=== PATIENT | male | born 1945 | race Caucasian/White ===

== ENCOUNTER → 2016-04-04 | Outpatient (CLI) | payer OTHER ==
[~2016-04-04] MED LIST: ALBU0.5N2 NEB; ALBUAER2 INH; ALBUTEROL SOLUTION NEB; ASPI-435 PO; CALC500T72 PO; CETI10TA84 PO; CHOL100010 PO; CHOL20009 PO; CYAN10005 PO; DOCU-94 PO; FERR1TAB23 PO; FLUN0.02 NAE; GFNSR600 PO; LSN5 PO; METF500T PO; OXGN; ROSU20TA PO; SERT100T PO; SYMIN160 INH; TYLOTC500 PO; VNTHFA/IN INH
--- NOTE | 2016-04-04 09:05 | DIAGNOSTIC IMAGING REPORT ---
RENAL ULTRASOUND HISTORY: C67.9 Carcinoma of [id number] COMPARISON: Abdomen and pelvis CT 01/13/2015. FINDINGS: Right kidney: 12.3 cm. Mild hydronephrosis which almost completely resolves post void. There may be a 1.9 cm exophytic cyst within the upper pole. This is suboptimally visualized due to the poor acoustic window. Left kidney: 11.7 cm. Mild hydronephrosis which almost completely resolves post void. There is a 9 mm upper pole cyst. Bladder: No bladder wall thickening. The left ureteral jet was not identified during the examination. Prevoid bladder volume was 810 cc. The post void was 30 cc. 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 IMPRESSION: 1. Mild bilateral hydronephrosis which is significantly improves post void. 2. 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 3. Post void residual of 30 cc. 4. Bilateral renal cysts.. Electronically signed by: Husam Camacho M.D. 04/04/2016 9:04 AM Dictated Date/Time: 04/04/2016 9:00 AM
--- NOTE | 2016-04-04 09:10 | DIAGNOSTIC IMAGING REPORT ---
KUB HISTORY: C67.9 Carcinoma of [id number] COMPARISON: KUB 03/09/2015. FINDINGS: The bowel gas pattern is unremarkable. There are no dilated loops of small bowel to suggest an obstruction. No renal calculi. No ureteral calculi. No pneumoperitoneum or pneumatosis. Surgical clips within the pelvis. Mild levoscoliosis of the lumbar spine. Mild to moderate degenerative disc disease within the lumbar spine. This remains unchanged. IMPRESSION: No renal or ureteral stones. Postoperative and degenerative changes are again noted. Electronically signed by: Husam Camacho M.D. 04/04/2016 9:08 AM Dictated Date/Time: 04/04/2016 9:06 AM
--- NOTE | 2016-04-09 13:39 | CODING QUERY MEDICAL NECESSITY ---
SUPPORTING DIAGNOSIS NEEDED A supporting diagnosis is required for the test/procedure performed on this patient in order for us to be reimbursed by the patient's insurance. Please provide a supporting diagnosis for the following test/procedure listed below next to the test name along with your signature. *If there is no additional diagnosis for this patient that would support the following test/procedure please document that below next to the test/procedure. Test(s)/Procedure(s) that require a supporting diagnosis: * PSA DIAGNOSIS: * DOS: 04/04/16 Provider Signature: Date: Thank you Mary Munoz [employer] Once completed, please kindly fax back to [phone] For questions please call [phone]
== END | disposition home or self-care (01) ==
LOC: C.ULTR 07:42
PROVIDERS: ATTEND Urology
DX: C67.9 Malignant neoplasm of bladder, unspecified (principal); N28.1 Cyst of kidney, acquired; Z12.5 Encounter for screening for malignant neoplasm of prostate

== ENCOUNTER → 2016-04-17 | Outpatient (CLI) | payer OTHER | END | disposition home or self-care (01) | LOC: C.PATHSPEC 17:16 | PROVIDERS: ATTEND Urology | DX: C67.9 Malignant neoplasm of bladder, unspecified (principal) ==

== ENCOUNTER 2016-05-29 20:55 | Emergency (ER) | payer OTHER ==
[~2016-05-29] VITALS: Ht 177.8 cm; Wt 109.1 kg
[~2016-05-29 20:55] MED LIST changes: -ALBUTEROL SOLUTION NEB; -ASPI-435 PO; -CALC500T72 PO; -CETI10TA84 PO; -CHOL20009 PO; -CYAN10005 PO; -DOCU-94 PO; -FERR1TAB23 PO; -FLUN0.02 NAE; -LSN5 PO; -METF500T PO; -ROSU20TA PO; -SERT100T PO; -SYMIN160 INH; -TYLOTC500 PO; -VNTHFA/IN INH
[2016-05-29 21:02] VITALS: TEMP 37; Ht 177.8 cm; Wt 109.1 kg
[2016-05-29 22:12] LABS: HEMATOCRIT 33.5 % (42-52); MEAN CELL VOLUME 87.5 fL (80-100); MEAN CORPUSCULAR HEMOGLOBIN 27.9 pg (25-34); MEAN CORPUSCULAR HGB CONC 31.9 g/dl (32-36); MEAN PLATELET VOLUME 10.1 fL (7.4-10.4); PLATELET COUNT 289 K/uL (130-400); RED BLOOD COUNT 3.83 M/uL (4.7-6.1); WHITE BLOOD COUNT 12.76 K/uL (4.8-10.8)
--- NOTE | 2016-05-29 22:13 | EMERGENCY ROOM VISIT NOTE ---
History Report prepared by Joseph: Shubham Hatch Under the Supervision of: Dr. Kristian Tam M.D. First contact with patient: 21:28 Chief Complaint: OTHER COMPLAINT Stated Complaint: HEART CATH DONE THIS MORNING, BLEEDING History of Present Illness The patient is a 70 year old male who presents to the Emergency Room with complaints of sudden bleeding from his right groin occurring prior to arrival. The patient states that he had a heart catheterization through the groin today done in [place], and everything went well. He states that he came home in the afternoon, and when he was sitting on the couch he got some pain in his groin, and he had swelling and bleeding around the incision site. He states that he is going to be getting a lung transplant due to multiple diseases in his lungs. He states that he is currently on baby aspirin every day, and he uses oxygen regularly. Source of History: patient Onset: prior to arrival Position: other (right groin) Quality: other (bleeding) Timing: other (sudden) Note: Associated symptoms: swelling Review of Systems See HPI for pertinent positives & negatives. A total of 10 systems reviewed and were otherwise negative. Past Medical & Surgical Medical Problems: (1) Abdominal pain (2) Acute Nasopharyngitis (3) Asthma, Unspecified (4) Bladder cancer (5) Bronchitis Nos (6) Calculus Of Ureter (7) Chronic Obstructive Asthma, Nos (8) Chronic Prostatitis (9) Diab Valarie Wo Compl, Type Ii Or Unspec Type, Not Uncntrld (10) Diverticulosis Colon (W/O Ment Of Hemorrhage) (11) Emphysema lung (12) Esophageal Reflux (13) Hyperlipidemia Nec/Nos (14) Hypertension Nos (15) Hypoxia (16) Neuropathy (17) Pneumonia (18) Pneumothorax (19) RLQ abdominal pain (20) Shortness of breath on exertion (21) UTI (urinary tract infection) Family History Diabetes mellitus Social History Smoking Status: Never Smoker Alcohol Use: none Drug Use: none Marital Status: Housing Status: lives with significant other Occupation Status: unemployed, disabled Current/Historical Medications Scheduled Aspirin (Aspirin 81), 81 MG PO QAM Budesonide/Formoterol Fumarate (Symbicort 160/4.5 Inhaler ), 2 PUFFS INH BID Cetirizine (Zyrtec), 10 MG PO DAILY Cholecalciferol (Vitamin D), 2,000 INTER.UNIT PO DAILY Cyanocobalamin (Vitamin B-12), 1,000 MCG PO DAILY Docusate Sodium (Colace), 1 CAP PO BID Flunisolide (Nasal) (Flunisolide), 1 SPRY STACY BID Lisinopril (Lisinopril), 5 MG PO DAILY Metformin Hcl (Glucophage), 500 MG PO BIDM Oxygen (Oxygen), 2 LITERS NA CONTINOUS Rosuvastatin Calcium (Crestor), 20 MG PO UD Sertraline Hcl (Zoloft), 100 MG PO HS Scheduled PRN Acetaminophen (Tylenol), 1,000 MG PO UD PRN for Fever or Headache Albuterol (Ventolin Hfa), 2 PUFFS INH Q6 PRN for SOB/Wheezing Albuterol 0.5% Soln (Ventolin 0.5% Soln), 1 VIAL NEB UD PRN for Shortness of Breath Allergies Coded Allergies: Penicillins (Verified Allergy, Mild, RASH, 05/29/16) RASH Citalopram (Verified Allergy, Unknown, joint pain, 05/29/16) Gabapentin (Verified Allergy, Unknown, joint pain, 05/29/16) Iodinated Diagnostic Agents (Verified Allergy, Unknown, HIVES, 05/29/16) Statins (Verified Adverse Reaction, Unknown, SEVERE MUSCLE ACHES, 05/29/16) PT CURRENTLY TAKING A LOW DOSE Physical Exam Vital Signs Date Time Temp Pulse Resp B/P Pulse Ox O2 Delivery O2 Flow Rate FiO2 05/30/16 00:17 93 20 124/65 96 Nasal Cannula 2.0 05/29/16 23:20 98 20 132/73 94 Room Air 05/29/16 22:45 94 15 104/66 95 Nasal Cannula 2.0 05/29/16 21:02 37.0 109 24 139/65 91 Nasal Cannula 2.0 Physical Exam GENERAL: Patient is in no acute distress. HEENT: No acute trauma, normocephalic atraumatic, mucous membranes moist, no nasal congestion, no scleral icterus. NECK: No stridor, no adenopathy, no meningismus, trachea is midline. LUNGS: Clear to auscultation bilaterally, no wheeze, no rhonchi, breath sounds equal. HEART: Without murmurs gallops or rubs, regular rate and rhythm. ABDOMEN: Soft, nontender, bowel sounds positive, no hernias, no peritonitis. GROIN: Small contusion to the right groin consistent with recent catheterization. No active bleeding or cellulitis. No obvious hematoma but the area is mildly tender to palpation. EXTREMITIES: Feet are warm bilaterally. No cyanosis or edema, full range of motion of all the joints without pain or difficulty, no signs for acute trauma. NEUROLOGIC: Oriented x 3, no acute motor or sensory deficits, no focal weakness. SKIN: No rash, no jaundice, no diaphoresis. Medical Decision & Procedures ER Provider Diagnostic Interpretation: US results as stated below per my review and radiologist interpretation: US ARTERIAL RIGHT LOWER EXTREMITY: No sonographic abnormality detected in the right groin. No evidence of pseudoaneurysm or fluid collection. Radiologist: Roland Kenney MD Laboratory Results 05/29/16 22:00 05/29/16 22:00 Test 05/29/16 22:00 Red Blood Count 3.83 M/uL (4.7-6.1) Mean Corpuscular Volume 87.5 fL (80-100) Mean Corpuscular Hemoglobin 27.9 pg (25-34) Mean Corpuscular Hemoglobin Concent 31.9 g/dl (32-36) RDW Standard Deviation 51.6 fL (36.4-46.3) RDW Coefficient of Variation 16.1 % (11.5-14.5) Mean Platelet Volume 10.1 fL (7.4-10.4) Prothrombin Time 10.7 SECONDS (9.0-12.0) Prothromb Time International Ratio 1.0 (0.9-1.1) Activated Partial Thromboplast Time 24.7 SECONDS (21.0-31.0) Partial Thromboplastin Ratio 1.0 Anion Gap 9.0 mmol/L (3-11) Est Creatinine Clear Calc Drug Dose 78.4 ml/min Estimated GFR () 79.0 Estimated GFR (Non- 68.1 BUN/Creatinine Ratio 26.5 (10-20) Calcium Level 9.0 mg/dl (8.5-10.1) Chemistry Specimen Hemolysis Laboratory results reviewed by me. ED Course 2127: The patient was evaluated in room A3. A complete history and physical exam was performed. 0013: Reevaluated the patient, and he is doing well. There is no more bleeding. Discussed results and discharge instructions: He verbalized understanding and agreement. The patient is ready for discharge. Medical Decision The patient is a 70 year old male who presents to the ED with complaints of bleeding from his right groin. Differential diagnoses considered include pseudoaneurysm, aneurysm, hematoma, cellulitis, coagulopathy. . There is a mild leukocytosis, this could be consistent with infection or just the stress of the situation. He is mildly anemic but apparently, he runs at this level. I did review old laboratory tests. There was no coagulopathy. No significant electrolyte abnormality or kidney failure. Right groin ultrasound did not show any pseudoaneurysm or active bleeding, there was no large hematoma. On exam, the patient did not have cellulitis, he was not toxic or febrile. He had good distal blood flow in both lower extremities. The patient has done well, there has been no bleeding during his ER stay. I did talk with the on-call boat joiner about the patient's case. The patient is being discharged home with rest, he will avoid a lot of walking and strenuous activity. If he has recurrent bleeding, he should report back to the ER. He was reassured and discharged home. Impression Primary Impression: Bleeding at insertion site Scribe Attestation The scribe's documentation has been prepared under my direction and personally reviewed by me in its entirety. I confirm that the note above accurately reflects all work, treatment, procedures, and medical decision making performed by me. Departure Information Dispostion Home / Self-Care Referrals Greer Monroe M.D. (PCP) Forms HOME CARE DOCUMENTATION FORM, IMPORTANT VISIT INFORMATION Patient Instructions My [facility] [email or web address] Additional Instructions rest no strenuous activity--avoid walking a lot for a few days return for worsening symptoms imaging today was ok as we discussed
[2016-05-29 22:21] LABS: PROTHROMBIN TIME (PATIENT) 10.7 SECONDS (9.0-12.0)
[2016-05-29 22:36] LABS: BUN/CREATININE RATIO 26.5 (10-20); CREATININE 1.1 mg/dl (0.60-1.40); POTASSIUM 3.8 mmol/L (3.5-5.1)
[2016-05-30 00:17] VITALS: BP 124/65; PULSE 93; O2SAT 96
--- NOTE | 2016-05-30 06:39 | DIAGNOSTIC IMAGING REPORT ---
ARTERIAL DOPPLER ULTRASOUND OF THE RIGHT GROIN CLINICAL HISTORY: Right groin pain. History of catheterization. Bleeding COMPARISON STUDY: No previous studies for comparison. FINDINGS: The common femoral artery waveform is normal. The common femoral venous waveform is normal. There is no evidence of pseudoaneurysm. There are no abnormal fluid collections. IMPRESSION: No abnormalities identified. No evidence of pseudoaneurysm. No evidence of significant hematoma. Electronically signed by: Alvin Sargent M.D. 05/30/2016 6:38 AM Dictated Date/Time: 05/30/2016 6:36 AM
[2016-10-24] MEDS ORDERED: SYMIN160 INH (08:46)
[2016-10-24] MEDS ORDERED: METF500T PO (09:38)
[2016-10-24] MEDS ORDERED: LSN5 PO (11:09)
[2016-10-24] MEDS ORDERED: SERT100T PO (11:09)
[2016-10-24] MEDS ORDERED: CETI10TA84 PO (13:09)
[2016-10-24] MEDS ORDERED: ROSU20TA PO (13:09)
[2016-10-24] MEDS ORDERED: CYAN10005 PO (13:09)
[2016-10-24] MEDS ORDERED: FLUN0.02 NAE (13:09)
[2016-10-24] MEDS ORDERED: DOCU-94 PO (13:09)
== END 2016-05-30 00:26 | disposition home or self-care (01) ==
LOC: C.EDB 20:56 → C.EDA 05-30 00:26
DX: T81.89XA Other complications of procedures, not elsewhere classified, initial encounter (principal); Y84.8 Other medical procedures as the cause of abnormal reaction of the patient, or of later complication, without mention of misadventure at the time of the procedure; D64.9 Anemia, unspecified; J45.909 Unspecified asthma, uncomplicated; Z85.51 Personal history of malignant neoplasm of bladder; Z87.440 Personal history of urinary (tract) infections; J44.9 Chronic obstructive pulmonary disease, unspecified; E11.9 Type 2 diabetes mellitus without complications; K21.9 Gastro-esophageal reflux disease without esophagitis; E78.5 Hyperlipidemia, unspecified; I10 Essential (primary) hypertension; Z87.01 Personal history of pneumonia (recurrent); Z83.3 Family history of diabetes mellitus; Z79.82 Long term (current) use of aspirin; Z79.899 Other long term (current) drug therapy

== ENCOUNTER → 2016-09-26 | Outpatient (CLI) | payer OTHER ==
[~2016-09-26] MED LIST changes: +ALBUTEROL SOLUTION NEB; +ASPI-435 PO; +CALC500T72 PO; +CETI10TA84 PO; +CHOL20009 PO; +CYAN10005 PO; +DOCU-94 PO; +FERR1TAB23 PO; +FLUN0.02 NAE; -GFNSR600 PO; +LSN5 PO; +METF500T PO; +PERFLUTREN LIPID MICROSPHERE (DEFINITY) IV ONE; +ROSU20TA PO; +SERT100T PO; +SYMIN160 INH; +TYLOTC500 PO; +VNTHFA/IN INH
--- NOTE | 2016-09-26 15:51 | ECHOCARDIOGRAM REPORT ---
*NOTICE TO RECEIVING [employer] This information is strictly Confidential and protected under [place] law. [place] law prohibits you from making any further disclosure of this information unless further disclosure is expressly permitted by the written consent of the person to whom it pertains or is authorized by law. A general authorization for the release of medical or other information is not sufficient for this purpose. Hospital accepts no responsibility if the information is made available to any other person, INCLUDING THE PATIENT. Interpretation Summary * Name: JENNIFER MOORE Study Date: 09/26/2016 12:40 PM BP: 131/64 mmHg * Patient Location: [facility] HR: 91 * : 1945 (M/d/yyyy) Gender: Male Height: 70 in * Age: 71 yrs Ethnicity: [place] Weight: 248 lb * Ordering Physician: Bob Marcum * Referring Physician: Bob Marcum * Performed By: Lalitha Connor * * Reason For Study: HYPOXIA, LUNG DISEASE * BSA: 2.3 m2 * -- Conclusions -- * Left ventricular systolic function is normal. * No regional wall motion abnormalities noted. * Ejection Fraction = 60-65%. * Grade I diastolic dysfunction, (abnormal relaxation pattern). * No significant valvular pathology. Procedure Details * A complete two-dimensional transthoracic echocardiogram was performed (2D, M-mode, Doppler and color flow Doppler). * A contrast injection of Definity was performed to improve assessment of LV function. * Contrast was injected into an intravenous site in the right arm. * One vial of Definity ultrasound contrast was diluted in normal saline to a total volume of 10 ml. A total of '2' ml of solution was administered during imaging. * Lot # [id number] of Definity utilized for procedure. * Expiration date 10/19. * The attending nurse who injected the contrast agent was JEWELS KRISHNAN RN. Left Ventricle * The left ventricle is normal in size. * There is normal left ventricular wall thickness. * Ejection Fraction = 60-65%. * Left ventricular systolic function is normal. * No regional wall motion abnormalities noted. Right Ventricle * The right ventricle is grossly normal size. * The right ventricular systolic function is normal as assessed by tricuspid annular plane systolic excursion (TAPSE) (normal >1.5 cm). Atria * The left atrium is mildly dilated. * Borderline right atrial enlargement. * There is no evidence of atrial septal defect, but resolution does not allow assessment for a patent foramen ovale. Mitral Valve * The mitral valve is grossly normal. * There is no mitral valve stenosis. * Significant mitral regurgitation is absent. Tricuspid Valve * The tricuspid valve is not well visualized, but is grossly normal. * There is no tricuspid stenosis. * Significant tricuspid regurgitation is absent. Aortic Valve * The aortic valve is not well visualized. * The aortic valve opens well. * No hemodynamically significant valvular aortic stenosis. * No aortic regurgitation is present. Pulmonic Valve * The pulmonary valve is not well seen, but the Doppler examination is normal without significant regurgitation or stenosis. Great Vessels * The aortic root is normal size. * The pulmonary is not well visualized. Pericardium/Pleural * There is no pericardial effusion. Great Vessels * Normal inferior vena cava size and collapsability with sniff indicates a normal right atrial pressure of 3 mmHg Left Ventricular Diastolic Function * Grade I diastolic dysfunction, (abnormal relaxation pattern). * E to e'= <10 abnormal relaxation MMode 2D Measurements and Calculations IVSd 1.1 cm IVSs 1.5 cm LVIDd 4.5 cm LVIDs 3.2 cm LVPWd 1.3 cm LVPWs 1.3 cm IVS/LVPW 0.89 FS 29.1 % EDV(Teich) 90.7 ml ESV(Teich) 39.9 ml EF(Teich) 56.0 % EDV(cubed) 88.9 ml ESV(cubed) 31.7 ml EF(cubed) 64.4 % % IVS thick 30.3 % % LVPW thick -1.52 % LV mass(C)d 199.8 grams LV mass(C)dI 87.4 grams/m\S\2 LV mass(C)s 147.5 grams LV mass(C)sI 64.5 grams/m\S\2 SV(Teich) 50.8 ml SI(Teich) 22.2 ml/m\S\2 SV(cubed) 57.2 ml SI(cubed) 25.0 ml/m\S\2 ACS 1.2 cm asc Aorta Diam 2.7 cm LVOT diam 2.2 cm LVOT area 3.7 cm\S\2 LVAd ap4 43.4 cm\S\2 LVLd ap4 9.4 cm EDV(MOD-sp4) 166.1 ml EDV(sp4-el) 171.0 ml LVAs ap4 24.3 cm\S\2 LVLs ap4 7.1 cm ESV(MOD-sp4) 68.3 ml ESV(sp4-el) 70.1 ml EF(MOD-sp4) 58.9 % EF(sp4-el) 59.0 % LVAd ap2 37.1 cm\S\2 LVLd ap2 9.0 cm EDV(MOD-sp2) 123.3 ml EDV(sp2-el) 130.0 ml LVAs ap2 20.9 cm\S\2 LVLs ap2 7.2 cm ESV(MOD-sp2) 50.5 ml ESV(sp2-el) 51.3 ml EF(MOD-sp2) 59.1 % EF(sp2-el) 60.5 % LVLd %diff -4.27 % EDV(MOD-bp) 144.9 ml LVLs %diff 1.3 % ESV(MOD-bp) 59.2 ml EF(MOD-bp) 59.2 % SV(MOD-sp4) 97.8 ml SI(MOD-sp4) 42.8 ml/m\S\2 SV(MOD-sp2) 72.8 ml SI(MOD-sp2) 31.9 ml/m\S\2 SV(MOD-bp) 85.7 ml SI(MOD-bp) 37.5 ml/m\S\2 SV(sp4-el) 100.9 ml SI(sp4-el) 44.1 ml/m\S\2 SV(sp2-el) 78.7 ml SI(sp2-el) 34.4 ml/m\S\2 Doppler Measurements and Calculations MV E max lexis 86.6 cm/sec MV A max lexis 90.4 cm/sec MV E/A 0.96 MV dec time 0.22 sec Ao V2 max 134.2 cm/sec Ao max PG 7.2 mmHg Ao max PG (full) 2.2 mmHg MARIAJOSE(V,A) 3.1 cm\S\2 MARIAJOSE(V,D) 3.1 cm\S\2 LV V1 max PG 5.0 mmHg LV V1 max 110.7 cm/sec TR max lexis 263.7 cm/sec
== END | disposition home or self-care (01) ==
LOC: C.CPL 12:13
PROVIDERS: ATTEND Internal Medicine Critical Care Medicine
DX: J84.10 Pulmonary fibrosis, unspecified (principal); R09.02 Hypoxemia

== ENCOUNTER → 2016-10-03 | Outpatient (CLI) | payer OTHER ==
[~2016-10-03] MED LIST changes: -PERFLUTREN LIPID MICROSPHERE (DEFINITY) IV ONE
--- NOTE | 2016-10-03 11:32 | DIAGNOSTIC IMAGING REPORT ---
CHEST 2 VIEWS ROUTINE HISTORY: Chronic obstructive pulmonary disease. COMPARISON: Chest 03/01/2016. FINDINGS: No pneumothorax. There are low lung volumes with stable mild elevation of the right hemidiaphragm. The heart remains mildly enlarged. Interstitial thickening, left greater than right remains unchanged. No new focal lung consolidations. No evidence for pulmonary edema. No pleural effusions. IMPRESSION: No change in the low lung volumes and interstitial thickening. This is consistent with a chronic interstitial lung disease. No new focal lung consolidations. Electronically signed by: Husam Camacho M.D. 10/03/2016 11:30 AM Dictated Date/Time: 10/03/2016 11:29 AM
== END | disposition home or self-care (01) ==
LOC: C.RAD 10:44
PROVIDERS: ATTEND Internal Medicine Critical Care Medicine
DX: J44.9 Chronic obstructive pulmonary disease, unspecified (principal)

== ENCOUNTER 2016-10-24 15:25 | Observation (INO) | payer OTHER ==
[~2016-10-24] VITALS: Ht 177.8 cm; Wt 114.7 kg
[~2016-10-24 15:25] MED LIST changes: -ALBUTEROL SOLUTION NEB; -ASPI-435 PO; -CALC500T72 PO; -CHOL20009 PO; -FERR1TAB23 PO; -TYLOTC500 PO; -VNTHFA/IN INH
[2016-10-24] MEDS ORDERED: ALBUT/IPRATROP 3MG/0.5MG NEB 3 ML VIAL INH STA (15:38)
[2016-10-24] MEDS ORDERED: ASPI-435 PO (15:51)
[2016-10-24] MEDS ORDERED: TYLOTC500 PO (15:59)
--- NOTE | 2016-10-24 16:07 | DIAGNOSTIC IMAGING REPORT ---
SINGLE VIEW CHEST CLINICAL HISTORY: Dyspnea. FINDINGS: An AP, portable, upright chest radiograph is compared to study dated 10/03/2016. Correlation is made with chest CT dated 01/20/2016. The examination is significantly degraded by portable technique, motion artifact, and patient rotation. The heart is top normal for projection. Findings of chronic interstitial lung disease are similar to previous. There is no evidence of superimposed airspace consolidation. No large pleural effusion or pneumothorax is seen. The skeletal structures are osteopenic. The bony thorax is grossly intact. IMPRESSION: Findings chronic interstitial lung disease are similar to prior studies. There is no evidence of superimposed airspace consolidation. Electronically signed by: Kristian Joy M.D. 10/24/2016 4:06 PM Dictated Date/Time: 10/24/2016 4:04 PM
--- NOTE | 2016-10-24 16:12 | EMERGENCY ROOM VISIT NOTE ---
History First contact with patient: 15:31 Chief Complaint: SHORTNESS OF BREATH Stated Complaint: SOB History of Present Illness The patient is a 71 year old male who presents to the Emergency Room via private vehicle coming by with complaints of "shortness of breath". The patient states he has a history of interstitial lung disease, and over the past week notes that he now has to sleep with a pillow underneath his head, and feels that he is drowning when he lays flat. He also notes a 20 pound weight gain since October 01. He follows with Dr. Marcum for pulmonology. He denies any diuretics at home. He states he is chronically on 3 L of oxygen since December. He notes he does feel that his shortness of breath has worsened in the past week slightly. He has a chronic smoking history, but stopped in 1994. He denies any chest pain, abdominal pain, fevers or chills. Review of Systems A complete 10-point Review of Systems was discussed with the patient, with pertinent positives and negatives listed in the History of Present Illness. All remaining Review of Systems questions can be considered negative unless otherwise specified. Past Medical/Surgical History Medical Problems: (1) Abdominal pain (2) Acute Nasopharyngitis (3) Asthma, Unspecified (4) Bladder cancer (5) Bronchitis Nos (6) Calculus Of Ureter (7) CHF (congestive heart failure) (8) Chronic Obstructive Asthma, Nos (9) Chronic Prostatitis (10) Diab Valarie Wo Compl, Type Ii Or Unspec Type, Not Uncntrld (11) Diverticulosis Colon (W/O Ment Of Hemorrhage) (12) Emphysema lung (13) Esophageal Reflux (14) Hyperlipidemia Nec/Nos (15) Hypertension Nos (16) Hypoxia (17) Neuropathy (18) Pneumonia (19) Pneumothorax (20) RLQ abdominal pain (21) Shortness of breath on exertion (22) SOB (shortness of breath) (23) UTI (urinary tract infection) (24) Weight gain Family History Diabetes mellitus Social History Smoking Status: Former Smoker Alcohol Use: none Drug Use: none Marital Status: Housing Status: lives with significant other Occupation Status: unemployed, disabled Current/Historical Medications Scheduled Albuterol Hfa (Ventolin Hfa), 2 PUFFS INH Q6H Aspirin (Aspirin 81), 81 MG PO QAM Budesonide/Formoterol Fumarate (Symbicort 160/4.5 Inhaler ), 2 PUFFS INH BID Calcium Ascorbate (Vitamin C), 1 TAB PO DAILY Cetirizine (Zyrtec), 10 MG PO DAILY Cholecalciferol (Vitamin D), 2,000 UNITS PO DAILY Cyanocobalamin (Vitamin B-12), 1,000 MCG PO DAILY Docusate Sodium (Colace), 1 CAP PO BID Ferrous Sulfate (Iron), 325 MG PO DAILY Flunisolide (Nasal) (Flunisolide), 1 SPRY STACY BID Home O2 Therapy (Oxygen), 2 LITERS NA CONTINOUS Lisinopril (Lisinopril), 5 MG PO DAILY Metformin Hcl (Glucophage), 500 MG PO DAILY Rosuvastatin Calcium (Crestor), 20 MG PO UD Sertraline Hcl (Zoloft), 100 MG PO HS [Albuterol Solution ], 1 VIAL NEB PRN UD Scheduled PRN Acetaminophen (Tylenol), 1,000 MG PO UD PRN for Fever or Headache Physical Exam Vital Signs Date Time Temp Pulse Resp B/P (MAP) Pulse Ox O2 Delivery O2 Flow Rate FiO2 10/24/16 19:00 82 10/24/16 18:44 84 22 134/86 97 Nasal Cannula 2.0 10/24/16 16:56 89 20 136/79 95 Nasal Cannula 2.0 10/24/16 15:48 95 10/24/16 15:42 98 Nasal Cannula 2.0 10/24/16 15:26 36.6 97 20 155/78 97 Nasal Cannula 3.0 Physical Exam VITAL SIGNS - Vital signs and nursing notes were reviewed. Patient is afebrile , hypertensive 155 or 78, non-tachycardic and saturating well on 3 L of oxygen at 97%. GENERAL -71-year-old male appearing his stated age who is in no acute distress but does appear to be speaking in abbreviated sentences secondary to shortness of breath. Communicates well with provider and answers questions appropriately. SKIN - Without rashes. HEAD - NC/AT. EYES - Sclera anicteric. Palpebral conjunctiva pink and moist with no injection noted. EARS - No deformities of external structures noted on gross examination bilaterally. NOSE - Midline and without cyanosis. No epistaxis or purulent drainage noted. Septum midline without deviation or septal hematoma noted. MOUTH/OROPHARYNX - Without perioral cyanosis. NECK - Neck with FROM. Supple to palpation. no lymphadenopathy noted. No nuchal rigidity. LUNGS - Chest wall symmetric without accessory muscle use, intercostals retractions, or central cyanosis. Normal vesicular breath sounds CTA B/L. No wheezes, rales, or rhonchi appreciated. CARDIAC - RRR with S1/S2. No murmur, rubs, or gallops appreciated. EXTREMITIES - No clubbing or peripheral cyanosis. Minimal pretibial edema present. +5/5 strength noted in UE/LE bilaterally. NEUROLOGIC - Cranial nerves II through XII grossly intact. Sensory intact to light touch throughout. PSYCH - Pt is very pleasant and interacts well with examiner. Medical Decision & Procedures ER Provider Diagnostic Interpretation: SINGLE VIEW CHEST CLINICAL HISTORY: Dyspnea. FINDINGS: An AP, portable, upright chest radiograph is compared to study dated 10/03/2016. Correlation is made with chest CT dated 01/20/2016. The examination is significantly degraded by portable technique, motion artifact, and patient rotation. The heart is top normal for projection. Findings of chronic interstitial lung disease are similar to previous. There is no evidence of superimposed airspace consolidation. No large pleural effusion or pneumothorax is seen. The skeletal structures are osteopenic. The bony thorax is grossly intact. IMPRESSION: Findings chronic interstitial lung disease are similar to prior studies. There is no evidence of superimposed airspace consolidation. Electronically signed by: Kristian Joy M.D. 10/24/2016 4:06 PM Dictated Date/Time: 10/24/2016 4:[address] SCAN OF THE CHEST WITHOUT IV CONTRAST CLINICAL HISTORY: Dyspnea. COMPARISON STUDY: Chest x-ray dated 10/24/2016. Chest CT scans dated 01/20/2016 and 12/08/2015. TECHNIQUE: CT scan of the thorax was performed from the thoracic inlet to the upper abdomen. Images are reviewed in the axial, sagittal, and coronal planes. IV contrast was not administered for this examination as per the referring clinician. A dose lowering technique was utilized adhering to the principles of ALARA. CT DOSE: 925.66 mGycm FINDINGS: Thyroid: Imaged portions of the thyroid gland are normal in size and attenuation. A subcentimeter low-attenuation nodule is noted in the left lobe. Thoracic aorta: There is mild atherosclerotic calcification of the thoracic aorta, which is normal in caliber and demonstrates standard 3-vessel arch anatomy. Heart: The heart is mildly enlarged and without pericardial effusion. The coronary arteries are densely calcified. Lungs and pleural spaces: There is extensive subpleural reticulation with associated groundglass change. Mild traction bronchiectasis is noted at the lung bases. Findings consistent with chronic interstitial lung disease and this is similar to previous. There is no evidence of superimposed airspace consolidation or pleural effusion. No honeycombing is identified. The trachea and central airways are clear. Mediastinum: Prominent subcentimeter mediastinal lymph nodes are identified and similar to prior studies. Conchita: Not well assessed without IV contrast. Axillae: There is no axillary lymphadenopathy. Upper abdomen: The liver is cirrhotic in morphology and heterogeneous in attenuation. There is a small hiatal hernia. Perigastric varices are identified. A 1.3 cm exophytic cyst arises from the upper pole of the right kidney. Skeletal structures: The skeletal structures are osteopenic. No lytic or blastic bony lesions are seen. IMPRESSION: 1. Findings of chronic interstitial lung disease are similar to previous. There is no evidence of superimposed airspace consolidation or pleural effusion. 2. Cardiomegaly. 3. Cirrhotic liver morphology. 4. Additional findings as above. Electronically signed by: Kristian Joy M.D. 10/24/2016 6:09 PM Dictated Date/Time: 10/24/2016 6:04 PM Laboratory Results 10/24/16 16:00 Red Blood Count 4.02, Mean Corpuscular Volume 95.5, Mean Corpuscular Hemoglobin 30.3, Mean Corpuscular Hemoglobin Concent 31.8, Mean Platelet Volume 10.3, Neutrophils (%) (Auto) 62.3, Lymphocytes (%) (Auto) 21.0, Monocytes (%) (Auto) 10.1, Eosinophils (%) (Auto) 5.6, Basophils (%) (Auto) 0.5, Neutrophils # (Auto ) 4.13, Lymphocytes # (Auto) 1.39, Monocytes # (Auto) 0.67, Eosinophils # (Auto ) 0.37, Basophils # (Auto) 0.03 10/24/16 16:00 Test 10/24/16 16:00 White Blood Count 6.62 K/uL (4.8-10.8) Red Blood Count 4.02 M/uL (4.7-6.1) Hemoglobin 12.2 g/dL (14.0-18.0) Hematocrit 38.4 % (42-52) Mean Corpuscular Volume 95.5 fL (80-100) Mean Corpuscular Hemoglobin 30.3 pg (25-34) Mean Corpuscular Hemoglobin Concent 31.8 g/dl (32-36) Platelet Count 176 K/uL (130-400) Mean Platelet Volume 10.3 fL (7.4-10.4) Neutrophils (%) (Auto) 62.3 % Lymphocytes (%) (Auto) 21.0 % Monocytes (%) (Auto) 10.1 % Eosinophils (%) (Auto) 5.6 % Basophils (%) (Auto) 0.5 % Neutrophils # (Auto) 4.13 K/uL (1.4-6.5) Lymphocytes # (Auto) 1.39 K/uL (1.2-3.4) Monocytes # (Auto) 0.67 K/uL (0.11-0.59) Eosinophils # (Auto) 0.37 K/uL (0-0.5) Basophils # (Auto) 0.03 K/uL (0-0.2) RDW Standard Deviation 55.2 fL (36.4-46.3) RDW Coefficient of Variation 15.7 % (11.5-14.5) Immature Granulocyte % (Auto) 0.5 % Immature Granulocyte # (Auto) 0.03 K/uL (0.00-0.02) Prothrombin Time 10.0 SECONDS (9.0-12.0) Prothromb Time International Ratio 0.9 (0.9-1.1) Activated Partial Thromboplast Time 25.6 SECONDS (21.0-31.0) Partial Thromboplastin Ratio 1.0 Anion Gap 8.0 mmol/L (3-11) Est Creatinine Clear Calc Drug Dose 95.8 ml/min Estimated GFR () 94.8 Estimated GFR (Non- 81.8 BUN/Creatinine Ratio 16.3 (10-20) Calcium Level 8.3 mg/dl (8.5-10.1) Magnesium Level 2.1 mg/dl (1.8-2.4) Total Bilirubin 0.3 mg/dl (0.2-1) Aspartate Amino Transf (AST/SGOT) 30 U/L (15-37) Alanine Aminotransferase (ALT/SGPT) 31 U/L (12-78) Alkaline Phosphatase 61 U/L (45-117) Troponin I < 0.015 ng/ml (0-0.045) Pro-B-Type Natriuretic Peptide 25 pg/ml (0-900) Total Protein 7.1 gm/dl (6.4-8.2) Albumin 3.2 gm/dl (3.4-5.0) Globulin 3.9 gm/dl (2.5-4.0) Albumin/Globulin Ratio 0.8 (0.9-2) Medications Administered Medications (Trade) Dose Ordered Sig/Senthil Route Start Time Stop Time Status Last Admin Dose Admin Albuterol/ Ipratropium (Duoneb) 3 ml NOW STAT INH 10/24/16 15:38 10/24/16 15:40 DC 10/24/16 15:59 3 ML Albuterol (Ventolin Hfa Inhaler) 2 puffs Q6H INH 10/24/16 19:45 11/23/16 19:44 10/24/16 21:33 2 PUFFS Medical Decision Patient was seen and evaluated as above. After obtaining a thorough history and physical examination IV access was initiated, and the above workup was performed. He presents to us today with a history of interstitial lung disease. He is conversationally dyspneic on examination. 15 minute DuoNeb was ordered and he was reevaluated and was feeling slightly better. X-ray does not show any acute process. CT of the chest was performed without the use of intravenous contrast as she does have an allergy to contrast agents. No true change compared to previous appreciated. The concern is that the patient is dyspneic to point where I'm concerned that going home with outpatient management at this time I don't believe is appropriate, believe that inpatient management for further evaluation and management is appropriate. Case was discussed with the attending physician, and also the hospitalist. CBC reveals no leukocytosis, anemia noted with hemoglobin of 12.2. Coags normal. Patient' s CMP does not reveal any evidence of kidney or liver failure. Glucose is high at 174. Please refer to further documentation regarding his stay. In evaluation treatment this patient following differential diagnoses were entertained: Acute exacerbation of chronic lung disease, PE, pneumonia, among others. Medication Reconcilliation Current Medication List: was personally reviewed by me Blood Pressure Screening Patient's blood pressure: Elevated blood pressure Blood pressure disposition: Elevated BP felt to be situational Impression Primary Impression: Chronic interstitial lung disease Departure Information Dispostion Admitted as an inpatient Condition FAIR Referrals Greer Monroe M.D. (PCP) Patient Instructions [facility]
[2016-10-24 16:15] LABS: BASO % 0.5 %; BASO ABS # 0.03 K/uL (0-0.2); COMPLETE YES; EOS % 5.6 %; HEMATOCRIT 38.4 % (42-52); IG% 0.5 %; LYMPH ABS # 1.39 K/uL (1.2-3.4); MEAN CELL VOLUME 95.5 fL (80-100); MEAN CORPUSCULAR HEMOGLOBIN 30.3 pg (25-34); MEAN CORPUSCULAR HGB CONC 31.8 g/dl (32-36); MEAN PLATELET VOLUME 10.3 fL (7.4-10.4); MONO % 10.1 %; NEUT % 62.3 %; PLATELET COUNT 176 K/uL (130-400); RED BLOOD COUNT 4.02 M/uL (4.7-6.1); WHITE BLOOD COUNT 6.62 K/uL (4.8-10.8)
[2016-10-24 16:24] LABS: INR 0.9 (0.9-1.1)
[2016-10-24] MEDS ORDERED: ALBUTEROL SOLUTION NEB (16:28)
[2016-10-24] MEDS ORDERED: CHOL20009 PO (16:32)
[2016-10-24] MEDS ORDERED: VNTHFA/IN INH (16:32)
[2016-10-24] MEDS ORDERED: CALC500T72 PO (16:32)
[2016-10-24] MEDS ORDERED: FERR1TAB23 PO (16:32)
[2016-10-24 16:51] LABS: ALB/GLOB RATIO 0.8 (0.9-2); ALKALINE PHOSPHATASE 61 U/L (45-117); ALT/SGPT 31 U/L (12-78); AST/SGOT 30 U/L (15-37); BLOOD UREA NITROGEN 15 mg/dl (7-18); BUN/CREATININE RATIO 16.3 (10-20); CALCIUM 8.3 mg/dl (8.5-10.1); CARBON DIOXIDE 25 mmol/L (21-32); CHLORIDE 109 mmol/L (98-107); CREATININE 0.94 mg/dl (0.60-1.40); GLUCOSE 174 mg/dl (70-99); MAGNESIUM 2.1 mg/dl (1.8-2.4); POTASSIUM 4.4 mmol/L (3.5-5.1); SODIUM 142 mmol/L (136-145)
--- NOTE | 2016-10-24 17:38 | EMERGENCY ROOM VISIT NOTE ---
ED Visit Note First contact with patient: 15:31 HPI: BLE edema and sob x 3 weeks. PE: dyspneic, AFVSS, NAD NC/AT RRR, no murmurs Diminished Abd soft NT/ND Ext: scant edema, no erythema Neuro: grossly intact Plan: CT chest, if negative may need V/Q scan. Planned admit. I reviewed the patient's past medical history, medications, and visit nursing notes. I discussed the case with the physician print shop assistant, examined the patient, and agree with the findings and plan as documented in the physician assistants note.
--- NOTE | 2016-10-24 18:10 | DIAGNOSTIC IMAGING REPORT ---
CT SCAN OF THE CHEST WITHOUT IV CONTRAST CLINICAL HISTORY: Dyspnea. COMPARISON STUDY: Chest x-ray dated 10/24/2016. Chest CT scans dated 01/20/2016 and 12/08/2015. TECHNIQUE: CT scan of the thorax was performed from the thoracic inlet to the upper abdomen. Images are reviewed in the axial, sagittal, and coronal planes. IV contrast was not administered for this examination as per the referring clinician. A dose lowering technique was utilized adhering to the principles of ALARA. CT DOSE: 925.66 mGycm FINDINGS: Thyroid: Imaged portions of the thyroid gland are normal in size and attenuation. A subcentimeter low-attenuation nodule is noted in the left lobe. Thoracic aorta: There is mild atherosclerotic calcification of the thoracic aorta, which is normal in caliber and demonstrates standard 3-vessel arch anatomy. Heart: The heart is mildly enlarged and without pericardial effusion. The coronary arteries are densely calcified. Lungs and pleural spaces: There is extensive subpleural reticulation with associated groundglass change. Mild traction bronchiectasis is noted at the lung bases. Findings consistent with chronic interstitial lung disease and this is similar to previous. There is no evidence of superimposed airspace consolidation or pleural effusion. No honeycombing is identified. The trachea and central airways are clear. Mediastinum: Prominent subcentimeter mediastinal lymph nodes are identified and similar to prior studies. Conchita: Not well assessed without IV contrast. Axillae: There is no axillary lymphadenopathy. Upper abdomen: The liver is cirrhotic in morphology and heterogeneous in attenuation. There is a small hiatal hernia. Perigastric varices are identified. A 1.3 cm exophytic cyst arises from the upper pole of the right kidney. Skeletal structures: The skeletal structures are osteopenic. No lytic or blastic bony lesions are seen. IMPRESSION: 1. Findings of chronic interstitial lung disease are similar to previous. There is no evidence of superimposed airspace consolidation or pleural effusion. 2. Cardiomegaly. 3. Cirrhotic liver morphology. 4. Additional findings as above. Electronically signed by: Kristian Joy M.D. 10/24/2016 6:09 PM Dictated Date/Time: 10/24/2016 6:04 PM
[2016-10-24] MEDS ORDERED: MAGNESIUM HYDROXIDE SUSP 30 ML UDC PO PRN (19:45)
[2016-10-24] MEDS ORDERED: NITROGLYCERIN 0.4 MG SL PER TAB CHARGE SL PRN (19:45)
[2016-10-24] MEDS ORDERED: POLYETHYLENE (MIRALAX) 17 GM PACK PO PRN (19:45)
[2016-10-24] MEDS ORDERED: ALUMINUM/MAGNESIUM/SIMETH (MAALOX MAX) 30 ML UDC PO PRN (19:45)
[2016-10-24] MEDS ORDERED: ONDANSETRON INJ 2 MG/ML 2 ML VIAL IV PRN (19:45)
[2016-10-24] MEDS ORDERED: ALBUT/IPRATROP 3MG/0.5MG NEB 3 ML VIAL INH PRN (19:45)
[2016-10-24] MEDS ORDERED: ACETAMINOPHEN 325 MG TAB PO PRN (19:45)
--- NOTE | 2016-10-24 20:16 | History and Physical ---
History & Physical Date & Time of Service: Oct 24, 2016 at 19:55 Chief Complaint: SOB Primary Care Physician: Greer Monroe M.D. History of Present Illness Source: patient, family ( at bedside ), clinic records, hospital records Patient is a pleasant 71 y/o male, with PMHx of T2DM with neuropathy, interstitial lung disease, dyslipidemia, HTN, and depression, who presented to the ED because weight gain. According to patient, over the last one month, patient has gained 20+ pounds. Per [employer], patient was seen by Dr. Marcum at the October 01 with weight recorded at 254; today weight is 268. Patient notes over the last few weeks he has had difficulty with lying flat, propping himself up with pillows. He also noted abdominal fullness and lower extremity swelling. notes he is waking up in the middle of the night gasping for air. Patient has a h/o of TRAY but refuses to wear his CPAP. He admits to eating unhealthy over the last few weeks due to feeling low. In July, patient started the process of screening for a hopeful lung transplant, which he is now being told is not going to happen due to his PMHx. On 09/26/16 patient had ECHO reporting: Left ventricular systolic function is normal, No regional wall motion abnormalities noted, Ejection Fraction = 60-65%, Grade I diastolic dysfunction, (abnormal relaxation pattern), and No significant valvular pathology. Patient normally wears 4L O2 at rest and 4-6L with ambulation. Per , she has noticed he is requiring more O2 with ambulation. + chronic productive cough- sputum white/clear. Patient denies any fever, chills, sweats, lightheadedness, dizziness, vision changes, CP, palpitations, wheezing, abdominal pain, nausea, vomiting, diarrhea, urinary symptoms, melena, numbness/ tingling, weakness, muscle/joint pain, anxiety/depression, active bleeding, or new skin discoloration/changes. Past Medical/Surgical History Medical Problems: T2DM with neuropathy interstitial lung disease dyslipidemia HTN depression Family History Diabetes mellitus Social History Smoking Status: Former Smoker Drug Use: none Marital Status: Housing status: lives with significant other Occupational Status: unemployed, disabled Immunizations History of Tetanus Vaccine?: Yes History of Pneumococcal: Yes History of Hepatitis B Vaccine: No Multi-Drug Resistant Organisms History of MDRO: No Allergies Coded Allergies: Penicillins (Verified Allergy, Mild, RASH, 05/29/16) RASH Citalopram (Verified Allergy, Unknown, joint pain, 05/29/16) Gabapentin (Verified Allergy, Unknown, joint pain, 05/29/16) Iodinated Diagnostic Agents (Verified Allergy, Unknown, HIVES, 05/29/16) Statins (Verified Adverse Reaction, Unknown, SEVERE MUSCLE ACHES, 05/29/16) PT CURRENTLY TAKING A LOW DOSE Home Medications Scheduled Albuterol Hfa (Ventolin Hfa), 2 PUFFS INH Q6H Aspirin (Aspirin 81), 81 MG PO QAM Budesonide/Formoterol Fumarate (Symbicort 160/4.5 Inhaler ), 2 PUFFS INH BID Calcium Ascorbate (Vitamin C), 1 TAB PO DAILY Cetirizine (Zyrtec), 10 MG PO DAILY Cholecalciferol (Vitamin D), 2,000 UNITS PO DAILY Cyanocobalamin (Vitamin B-12), 1,000 MCG PO DAILY Docusate Sodium (Colace), 1 CAP PO BID Ferrous Sulfate (Iron), 325 MG PO DAILY Flunisolide (Nasal) (Flunisolide), 1 SPRY STACY BID Home O2 Therapy (Oxygen), 2 LITERS NA CONTINOUS Lisinopril (Lisinopril), 5 MG PO DAILY Metformin Hcl (Glucophage), 500 MG PO DAILY Rosuvastatin Calcium (Crestor), 20 MG PO UD Sertraline Hcl (Zoloft), 100 MG PO HS [Albuterol Solution ], 1 VIAL NEB PRN UD Scheduled PRN Acetaminophen (Tylenol), 1,000 MG PO UD PRN for Fever or Headache Physical Exam Vital Signs Date Time Temp Pulse Resp B/P (MAP) Pulse Ox O2 Delivery O2 Flow Rate FiO2 10/24/16 19:00 82 10/24/16 18:44 84 22 134/86 97 Nasal Cannula 2.0 10/24/16 16:56 89 20 136/79 95 Nasal Cannula 2.0 10/24/16 15:48 95 10/24/16 15:42 98 Nasal Cannula 2.0 10/24/16 15:26 36.6 97 20 155/78 97 Nasal Cannula 3.0 General Appearance: no apparent distress, + obese, + pertinent finding (2L O2 NC) Head: normocephalic, atraumatic Eyes: normal inspection, PERRL ENT: hearing grossly normal Neck: supple Respiratory/Chest: no respiratory distress, no accessory muscle use, + decreased breath sounds, + crackles (bilateral lung bases ), + wheezing ( throughout all lung dunbar ) Cardiovascular: regular rate, rhythm, no JVD Abdomen/GI: normal bowel sounds, non tender, + distended Extremities/Musculoskelatal: no calf tenderness, + swelling (+1 pitting edema to bilateral lower extremities ) Neurologic/Psych: alert, normal mood/affect, oriented x 3 Skin: normal color, warm/dry, no rash Diagnostics Laboratory Results Results Past 24 Hours Test 10/24/16 16:00 Range/Units White Blood Count 6.62 4.8-10.8 K/uL Red Blood Count 4.02 4.7-6.1 M/uL Hemoglobin 12.2 14.0-18.0 g/dL Hematocrit 38.4 42-52 % Mean Corpuscular Volume 95.5 80-100 fL Mean Corpuscular Hemoglobin 30.3 25-34 pg Mean Corpuscular Hemoglobin Concent 31.8 32-36 g/dl Platelet Count 176 130-400 K/uL Mean Platelet Volume 10.3 7.4-10.4 fL Neutrophils (%) (Auto) 62.3 % Lymphocytes (%) (Auto) 21.0 % Monocytes (%) (Auto) 10.1 % Eosinophils (%) (Auto) 5.6 % Basophils (%) (Auto) 0.5 % Neutrophils # (Auto) 4.13 1.4-6.5 K/uL Lymphocytes # (Auto) 1.39 1.2-3.4 K/uL Monocytes # (Auto) 0.67 0.11-0.59 K/uL Eosinophils # (Auto) 0.37 0-0.5 K/uL Basophils # (Auto) 0.03 0-0.2 K/uL RDW Standard Deviation 55.2 36.4-46.3 fL RDW Coefficient of Variation 15.7 11.5-14.5 % Immature Granulocyte % (Auto) 0.5 % Immature Granulocyte # (Auto) 0.03 0.00-0.02 K/uL Prothrombin Time 10.0 9.0-12.0 SECONDS Prothromb Time International Ratio 0.9 0.9-1.1 Activated Partial Thromboplast Time 25.6 21.0-31.0 SECONDS Partial Thromboplastin Ratio 1.0 Sodium Level 142 136-145 mmol/L Potassium Level 4.4 3.5-5.1 mmol/L Chloride Level 109 98-107 mmol/L Carbon Dioxide Level 25 21-32 mmol/L Anion Gap 8.0 3-11 mmol/L Blood Urea Nitrogen 15 7-18 mg/dl Creatinine 0.94 0.60-1.40 mg/dl Est Creatinine Clear Calc Drug Dose 95.8 ml/min Estimated GFR () 94.8 Estimated GFR (Non- 81.8 BUN/Creatinine Ratio 16.3 10-20 Random Glucose 174 70-99 mg/dl Calcium Level 8.3 8.5-10.1 mg/dl Magnesium Level 2.1 1.8-2.4 mg/dl Total Bilirubin 0.3 0.2-1 mg/dl Aspartate Amino Transf (AST/SGOT) 30 15-37 U/L Alanine Aminotransferase (ALT/SGPT) 31 12-78 U/L Alkaline Phosphatase 61 45-117 U/L Troponin I < 0.015 0-0.045 ng/ml Pro-B-Type Natriuretic Peptide 25 0-900 pg/ml Total Protein 7.1 6.4-8.2 gm/dl Albumin 3.2 3.4-5.0 gm/dl Globulin 3.9 2.5-4.0 gm/dl Albumin/Globulin Ratio 0.8 0.9-2 Diagnostic Radiology SINGLE VIEW CHEST CLINICAL HISTORY: Dyspnea. FINDINGS: An AP, portable, upright chest radiograph is compared to study dated 10/03/2016. Correlation is made with chest CT dated 01/20/2016. The examination is significantly degraded by portable technique, motion artifact, and patient rotation. The heart is top normal for projection. Findings of chronic interstitial lung disease are similar to previous. There is no evidence of superimposed airspace consolidation. No large pleural effusion or pneumothorax is seen. The skeletal structures are osteopenic. The bony thorax is grossly intact. IMPRESSION: Findings chronic interstitial lung disease are similar to prior studies. There is no evidence of superimposed airspace consolidation. Electronically signed by: Kristian Joy M.D. 10/24/2016 4:06 PM Dictated Date/Time: 10/24/2016 4:04 PM The status of this report is Signed. Draft = Not yet reviewed or approved by Radiologist. Signed = Reviewed and approved by Radiologist. CT SCAN OF THE CHEST WITHOUT IV CONTRAST CLINICAL HISTORY: Dyspnea. COMPARISON STUDY: Chest x-ray dated 10/24/2016. Chest CT scans dated 01/20/2016 and 12/08/2015. TECHNIQUE: CT scan of the thorax was performed from the thoracic inlet to the upper abdomen. Images are reviewed in the axial, sagittal, and coronal planes. IV contrast was not administered for this examination as per the referring clinician. A dose lowering technique was utilized adhering to the principles of ALARA. CT DOSE: 925.66 mGycm FINDINGS: Thyroid: Imaged portions of the thyroid gland are normal in size and attenuation. A subcentimeter low-attenuation nodule is noted in the left lobe. Thoracic aorta: There is mild atherosclerotic calcification of the thoracic aorta, which is normal in caliber and demonstrates standard 3-vessel arch anatomy. Heart: The heart is mildly enlarged and without pericardial effusion. The coronary arteries are densely calcified. Lungs and pleural spaces: There is extensive subpleural reticulation with associated groundglass change. Mild traction bronchiectasis is noted at the lung bases. Findings consistent with chronic interstitial lung disease and this is similar to previous. There is no evidence of superimposed airspace consolidation or pleural effusion. No honeycombing is identified. The trachea and central airways are clear. Mediastinum: Prominent subcentimeter mediastinal lymph nodes are identified and similar to prior studies. Conchita: Not well assessed without IV contrast. Axillae: There is no axillary lymphadenopathy. Upper abdomen: The liver is cirrhotic in morphology and heterogeneous in attenuation. There is a small hiatal hernia. Perigastric varices are identified. A 1.3 cm exophytic cyst arises from the upper pole of the right kidney. Skeletal structures: The skeletal structures are osteopenic. No lytic or blastic bony lesions are seen. IMPRESSION: 1. Findings of chronic interstitial lung disease are similar to previous. There is no evidence of superimposed airspace consolidation or pleural effusion. 2. Cardiomegaly. 3. Cirrhotic liver morphology. 4. Additional findings as above. Electronically signed by: Kristian Joy M.D. 10/24/2016 6:09 PM Dictated Date/Time: 10/24/2016 6:04 PM The status of this report is Signed. Draft = Not yet reviewed or approved by Radiologist. Signed = Reviewed and approved by Radiologist. EKG JENNIFER MOORE ID:[id number] 24-OCT-2016 15:42:58 [facility] Sinus rhythm with occasional Premature ventricular complexes Otherwise normal ECG When compared with ECG of 05-DEC-2015 15:13, Premature ventricular complexes are now Present Confirmed by ORQUIDEA MCKNIGHT ([id number]) on 10/24/2016 5:34:22 PM 25mm/s 10mm/mV 150Hz 8.0 SP2 12SL 241 CHAVA: 3 Referred by: Confirmed By: ORQUIDEA MCKNIGHT Vent. rate 94 BPM ND interval 172 ms QRS duration 90 ms QT/QTc 350/437 ms P-R-T axes 49 75 27 1945 (71 yr) Male 60in 1lb Room: Loc:15 Clerk Secretary:ALBERTO Larkin ind: Impression Assessment and Plan Patient is a pleasant 71 y/o male, with PMHx of T2DM with neuropathy, interstitial lung disease, HTN, dyslipidemia, and depression, who presented to the ED because weight gain. According to patient, over the last one month, patient has gained 20+ pounds. Acute on chronic diastolic CHF exacerbation: - Admit to tele for cardiac monitoring - O2 protocol, wean as tolerated- wears 4L O2 at rest and 4-6L w/ ambulation - IV Lasix 40 mg x1 and monitor response - Monitor I&Os and daily weights - ECHO in 09/17- will not repeat ECHO at this time because no s/s of ischemic cardiac changes * Left ventricular systolic function is normal. * No regional wall motion abnormalities noted. * Ejection Fraction = 60-65%. * Grade I diastolic dysfunction, (abnormal relaxation pattern). * No significant valvular pathology. - Follow PRP Interstitial lung disease- follows w/ Dr. Marcum: - Continue home inhalers - DuoNebs PRN SOB/wheezing T2DM w/ neuropathy: - Hold Metformin 500 mg daily - BSG ACHS and sliding insulin scale HTN: Lisinopril 5 mg daily Depression: Zoloft 100 mg HS Dyslipidemia: Crestor 20 mg HS Chronic anemia- STABLE: Continue iron supplement DVT prophylaxis: Heparin SQ BID Code Status: LEVEL V, DNR Dispo: From home, lives w/ i personally examined pt and verified all ivan points w T Murarik PAC weight gain, poor eating habits recently. vitals noted nad breathing unlabored (+) edema weight gain/edema - strongly suspect predominantly R sided CHF mechanism. -trial of lasix, explained potential for rise in creatinine, but pt/ in agreement with therapeutic trial -lasix 40mg IV now, then f/u BMP in AM -further diuretic dosing based on clinical response Level of Care Telemetry VTE Prophylaxis VTE Risk Assessment Done? Y/N: Yes Risk Level: Moderate Given or contraindicated: Unfractionated heparin SQ, T.E.D. Stockings, SCD's
[2016-10-24 20:45] VITALS: BP 152/79; PULSE 83; TEMP 36.3; O2SAT 96; Ht 177.8 cm; Wt 114.7 kg
[2016-10-24] MEDS ORDERED: IV FLUIDS COMPLETED PRN (20:45)
[2016-10-24] MEDS: SERTRALINE HCL 100 MG TAB PO SCH (21:00)
[2016-10-24] MEDS: DOCUSATE SODIUM 100 MG CAP PO SCH (21:00)
[2016-10-24] MEDS ORDERED: FUROSEMIDE INJ 40 MG in SYRINGE 0 ML IV ONE (21:00)
[2016-10-24] MEDS: ALBUTEROL HFA 8 GM INHALER INH SCH (21:33)
[2016-10-24] MEDS: BUDESONIDE/FORMOTEROL FUMARATE 160/4.5 60 PUFFS/INHALER INH SCH (21:33)
[2016-10-24] MEDS: INSULIN ASPART 100 UNITS/ML 3 ML PEN SC SCH (21:55)
[2016-10-24] MEDS: HEPARIN SOD 5000 UNIT/0.5 ML CARP SQ SCH (21:59)
[2016-10-24 23:51] VITALS: BP 126/80; PULSE 89; TEMP 36.8; O2SAT 95
[2016-10-25] MEDS: ALBUTEROL HFA 8 GM INHALER INH SCH ×4 (01:28→19:43)
[2016-10-25 04:00] VITALS: BP 130/78; PULSE 86; TEMP 36.9; O2SAT 97
[2016-10-25 06:43] LABS: HEMATOCRIT 36.1 % (42-52); MEAN CELL VOLUME 94.8 fL (80-100); MEAN CORPUSCULAR HEMOGLOBIN 30.4 pg (25-34); MEAN CORPUSCULAR HGB CONC 32.1 g/dl (32-36); MEAN PLATELET VOLUME 10.4 fL (7.4-10.4); PLATELET COUNT 155 K/uL (130-400); RED BLOOD COUNT 3.81 M/uL (4.7-6.1); WHITE BLOOD COUNT 7.54 K/uL (4.8-10.8)
[2016-10-25 06:52] VITALS: BP 132/78; PULSE 86; TEMP 36.7; O2SAT 96
[2016-10-25 07:17] LABS: BUN/CREATININE RATIO 17.7 (10-20); CALCIUM 8.8 mg/dl (8.5-10.1); CREATININE 0.87 mg/dl (0.60-1.40); POTASSIUM 4.1 mmol/L (3.5-5.1)
[2016-10-25] MEDS: BUDESONIDE/FORMOTEROL FUMARATE 160/4.5 60 PUFFS/INHALER INH SCH ×2 (08:17→21:00)
[2016-10-25] MEDS: DOCUSATE SODIUM 100 MG CAP PO SCH ×2 (08:17→21:00)
[2016-10-25] MEDS: ASPIRIN 81 MG ECTAB PO SCH (08:19)
[2016-10-25] MEDS: CYANOCOBALAMIN 500 MCG TAB (VIT B-12) PO SCH (08:19)
[2016-10-25] MEDS: LISINOPRIL 5 MG TAB PO SCH (08:19)
[2016-10-25] MEDS: CHOLECALCIFEROL 1000 INTER.UNIT TAB PO SCH (08:19)
[2016-10-25] MEDS: FERROUS SULFATE 325 MG TAB PO SCH (08:20)
[2016-10-25] MEDS: ASCORBIC ACID 500 MG TAB PO SCH (08:20)
[2016-10-25] MEDS: CETIRIZINE HCL 10 MG TAB PO SCH (08:20)
[2016-10-25] MEDS: HEPARIN SOD 5000 UNIT/0.5 ML CARP SQ SCH ×2 (08:27→21:06)
[2016-10-25] MEDS: INSULIN ASPART 100 UNITS/ML 3 ML PEN SC SCH ×4 (08:27→21:00)
[2016-10-25] MEDS ORDERED: ROSUVASTATIN CALCIUM 20 MG TAB PO SCH (09:00)
[2016-10-25 11:29] VITALS: BP 147/80; PULSE 87; TEMP 36.7; O2SAT 95
[2016-10-25] MEDS ORDERED: PHARMACY GLYCEMIC MGMT CONSULT PRN (12:30)
[2016-10-25] MEDS ORDERED: NURSING VERBAL MED ORDER ONE (12:30)
[2016-10-25] MEDS ORDERED: FUROSEMIDE INJ 20 MG in SYRINGE 0 ML IV ONE (12:45)
--- NOTE | 2016-10-25 12:54 | Pharmacy Progress Note ---
Glycemic Control Intl Consult Date of Service Oct 25, 2016. Scope Glycemic Pharmacist consulted by Dr Andujar on 10/25/16 for glycemic control and to write orders per [facility] inpatient glycemic control protocol Objective Weight (Kilograms): 115.800 Accuchecks BSG (last 24hrs): Test 10/24/16 16:00 10/24/16 21:41 10/25/16 06:08 10/25/16 06:25 Random Glucose 174 mg/dl (70-99) 126 mg/dl (70-99) Bedside Glucose 116 mg/dl (70-99) 123 mg/dl (70-99) Test 10/25/16 11:49 Bedside Glucose 87 mg/dl (70-99) Laboratory Data (last 24hrs) Test 10/24/16 16:00 10/25/16 06:08 Anion Gap 8.0 mmol/L 2.0 mmol/L BUN/Creatinine Ratio 16.3 17.7 Blood Urea Nitrogen 15 mg/dl 15 mg/dl Creatinine 0.94 mg/dl 0.87 mg/dl Potassium Level 4.4 mmol/L 4.1 mmol/L Sodium Level 142 mmol/L 140 mmol/L White Blood Count 6.62 K/uL 7.54 K/uL Red Blood Count 4.02 M/uL Hemoglobin 12.2 g/dL Hematocrit 38.4 % Mean Corpuscular Volume 95.5 fL Mean Corpuscular Hemoglobin 30.3 pg Mean Corpuscular Hemoglobin Concent 31.8 g/dl Platelet Count 176 K/uL Mean Platelet Volume 10.3 fL Neutrophils (%) (Auto) 62.3 % Lymphocytes (%) (Auto) 21.0 % Monocytes (%) (Auto) 10.1 % Eosinophils (%) (Auto) 5.6 % Basophils (%) (Auto) 0.5 % Neutrophils # (Auto) 4.13 K/uL Lymphocytes # (Auto) 1.39 K/uL Monocytes # (Auto) 0.67 K/uL Eosinophils # (Auto) 0.37 K/uL Basophils # (Auto) 0.03 K/uL Recent Pertinent Medications Outpatient Anti-diabetic Regimen: * Metformin 500mg po daily * A1c = 5.5 % 12/05/15 - updated A1c ordered fro 10/26/16 The patient is currently receiving: * Correctional Insulin: Novolog Correction per scale ACHS Goal Range: Low 140 mg/dL - High 180 mg/dL Correction Factor: 30 mg/dL/unit * Prandial insulin: Per carb ratio of 1 unit per 9 grams CHO consumed Risk Factors for Insulin Resistance: * Diet: Type 2 DM Assessment & Plan ASSESSMENT: * 71 year old type 2 diabetic, unknown control, updated A1c ordered, admitted for CHF exacerbation * Pt experiencing hypoglycemic symptoms with BSG of 87mg/dL today prior to lunch , I will loosen his CF and CR to keep his BSG closer to goal range. * ADA & AACE recommend a goal blood sugar range 140-180 mg/dl for the majority of critically ill & non-critically ill patients. However, more stringent targets may be selected in individual cases. Continue this range as patient states he is symptomatic when BSG < 100mg/dL PLAN FOR INPATIENT GLYCEMIC CONTROL: * Continue holding outpatient oral diabetes medications * Correctional Insulin with NOVOLOG per scale ACHS or Q6hrs while NPO * Goal Range: Low 140 mg/dL - High 180 mg/dL * Correction Factor: loosen to 40 mg/dL/unit * Nutritional / Prandial insulin per carb ratio: loosen to 1 unit per 15 grams CHO consumed * Please note that the plan above was derived based on current level of insulin resistance and hospital stress. These recommendations are appropriate for inpatient admission only. Plan of care upon discharge will need to be reassessed to avoid potential outpatient hypo/hyperglycemia. Thank you.
[2016-10-25 15:20] VITALS: BP 126/76; PULSE 87; TEMP 36.6; O2SAT 96
[2016-10-25 19:25] VITALS: BP 134/75; PULSE 89; TEMP 36.5; O2SAT 96
--- NOTE | 2016-10-25 20:27 | Hospitalist Progress Note ---
Hospitalist Progress Note Date of Service Oct 25, 2016. Subjective Pt evaluation today including: conversation w/ patient shortness of breath improved Objective Vital Signs Date Time Temp Pulse Resp B/P (MAP) Pulse Ox O2 Delivery O2 Flow Rate FiO2 10/25/16 20:00 Nasal Cannula 3.0 10/25/16 19:25 36.5 89 19 134/75 (94) 96 Nasal Cannula 3.0 10/25/16 16:00 Nasal Cannula 3.0 10/25/16 15:20 36.6 87 19 126/76 (93) 96 Nasal Cannula 3.0 10/25/16 12:00 Nasal Cannula 3.0 10/25/16 11:29 36.7 87 22 147/80 (102) 95 Nasal Cannula 3.0 10/25/16 08:00 Nasal Cannula 3.0 10/25/16 06:52 36.7 86 20 132/78 (96) 96 Nasal Cannula 2.0 10/25/16 04:00 36.9 86 21 130/78 (95) 97 Nasal Cannula 3.0 10/25/16 04:00 Nasal Cannula 3.0 10/25/16 00:00 Nasal Cannula 3.0 10/24/16 23:51 36.8 89 20 126/80 (95) 95 3.0 10/24/16 20:45 36.3 83 22 152/79 96 Nasal Cannula 4.0 Physical Exam General Appearance: no apparent distress Eyes: normal inspection ENT: hearing grossly normal Neck: supple, trachea midline Respiratory/Chest: lungs clear Cardiovascular: regular rate, rhythm Abdomen: normal bowel sounds Extremities: normal range of motion Laboratory Results Last 24 Hours Test 10/24/16 21:41 10/25/16 06:08 10/25/16 06:25 10/25/16 11:49 Bedside Glucose 116 mg/dl 123 mg/dl 87 mg/dl White Blood Count 7.54 K/uL Red Blood Count 3.81 M/uL Hemoglobin 11.6 g/dL Hematocrit 36.1 % Mean Corpuscular Volume 94.8 fL Mean Corpuscular Hemoglobin 30.4 pg Mean Corpuscular Hemoglobin Concent 32.1 g/dl RDW Standard Deviation 54.2 fL RDW Coefficient of Variation 15.7 % Platelet Count 155 K/uL Mean Platelet Volume 10.4 fL Sodium Level 140 mmol/L Potassium Level 4.1 mmol/L Chloride Level 107 mmol/L Carbon Dioxide Level 31 mmol/L Anion Gap 2.0 mmol/L Blood Urea Nitrogen 15 mg/dl Creatinine 0.87 mg/dl Est Creatinine Clear Calc Drug Dose 100.7 ml/min Estimated GFR () 101.3 Estimated GFR (Non- 87.4 BUN/Creatinine Ratio 17.7 Random Glucose 126 mg/dl Calcium Level 8.8 mg/dl Test 10/25/16 16:01 10/25/16 20:04 Bedside Glucose 101 mg/dl 135 mg/dl Assessment and Plan Patient is a pleasant 71 y/o male, with PMHx of T2DM with neuropathy, interstitial lung disease, HTN, dyslipidemia, and depression, who presented to the ED because weight gain. According to patient, over the last one month, patient has gained 20+ pounds. 1. Acute on chronic diastolic CHF exacerbation: Continue iv lasix good response currently - Monitor I&Os and daily weights - ECHO in 09/17- will not repeat ECHO at this time because no s/s of ischemic cardiac changes * Left ventricular systolic function is normal. * No regional wall motion abnormalities noted. * Ejection Fraction = 60-65%. * Grade I diastolic dysfunction, (abnormal relaxation pattern). * No significant valvular pathology. - Follow PRP 2. Interstitial lung disease- follows w/ Dr. Marcum: - Continue home inhalers - DuoNebs PRN SOB/wheezing 3. T2DM w/ neuropathy: - Hold Metformin 500 mg daily - BSG ACHS and sliding insulin scale Will ask pharmacy to manage 4. HTN: Lisinopril 5 mg daily 5. Depression: Zoloft 100 mg HS 6. Dyslipidemia: Crestor 20 mg HS 7. Chronic anemia- STABLE: Continue iron supplement 8. DVT prophylaxis: Heparin SQ BID 9. Code Status: LEVEL V, DNR Dispo: From home, lives w/ Discharge planning: home
[2016-10-25] MEDS: SERTRALINE HCL 100 MG TAB PO SCH (21:00)
[2016-10-25 23:33] VITALS: BP 111/69; PULSE 90; TEMP 36.7; O2SAT 98
[2016-10-26] MEDS: ALBUTEROL HFA 8 GM INHALER INH SCH ×4 (01:29→20:43)
[2016-10-26 03:34] VITALS: BP 128/77; PULSE 83; TEMP 36.4; O2SAT 96
[2016-10-26 06:07] LABS: HEMATOCRIT 38.7 % (42-52); MEAN CELL VOLUME 94.9 fL (80-100); MEAN CORPUSCULAR HEMOGLOBIN 29.7 pg (25-34); MEAN CORPUSCULAR HGB CONC 31.3 g/dl (32-36); MEAN PLATELET VOLUME 10.5 fL (7.4-10.4); PLATELET COUNT 187 K/uL (130-400); RED BLOOD COUNT 4.08 M/uL (4.7-6.1); WHITE BLOOD COUNT 7.56 K/uL (4.8-10.8)
[2016-10-26 06:38] LABS: CALCIUM 8.7 mg/dl (8.5-10.1); CREATININE 0.87 mg/dl (0.60-1.40); POTASSIUM 4.2 mmol/L (3.5-5.1)
[2016-10-26 06:58] LABS: ESTIMATED AVERAGE GLUCOSE 120 mg/dl; HA1C FLAG Normal (Normal)
[2016-10-26 07:22] VITALS: BP 137/77; PULSE 83; TEMP 36.4; O2SAT 94
[2016-10-26] MEDS: INSULIN ASPART 100 UNITS/ML 3 ML PEN SC SCH ×4 (08:09→20:44)
[2016-10-26] MEDS: HEPARIN SOD 5000 UNIT/0.5 ML CARP SQ SCH ×2 (08:10→20:44)
[2016-10-26] MEDS: DOCUSATE SODIUM 100 MG CAP PO SCH ×3 (08:11→20:49)
[2016-10-26] MEDS: BUDESONIDE/FORMOTEROL FUMARATE 160/4.5 60 PUFFS/INHALER INH SCH ×2 (08:11→20:43)
[2016-10-26] MEDS: ASPIRIN 81 MG ECTAB PO SCH (08:12)
[2016-10-26] MEDS: CYANOCOBALAMIN 500 MCG TAB (VIT B-12) PO SCH (08:12)
[2016-10-26] MEDS: FERROUS SULFATE 325 MG TAB PO SCH (08:12)
[2016-10-26] MEDS: ASCORBIC ACID 500 MG TAB PO SCH (08:12)
[2016-10-26] MEDS: CETIRIZINE HCL 10 MG TAB PO SCH (08:13)
[2016-10-26] MEDS: LISINOPRIL 5 MG TAB PO SCH (08:13)
[2016-10-26] MEDS: CHOLECALCIFEROL 1000 INTER.UNIT TAB PO SCH (08:13)
[2016-10-26 11:49] VITALS: BP 137/81; PULSE 85; TEMP 36.4; O2SAT 95
--- NOTE | 2016-10-26 12:05 | Pharmacy Progress Note ---
Pharmacy Glycemic Sign Off Nt Date of Service Oct 26, 2016. Assessment & Plan ASSESSMENT: * Pharmacy was consulted by Dr Andujar on 10/25/16 for glycemic control and to write orders per [facility] inpatient glycemic control protocol. * Major changes made by pharmacy to antidiabetic regimen include: * Novolog CF and CR loosened on 10/25 due to report of symptomatic hypoglycemia (BSG 87 g/dL) * No further reported hypoglycemia since above change was made * Patient has been receiving/requiring 14 units of insulin per day for adequate glycemic control * BSGs ranging 87 - 135 mg/dl * Do not anticipate further changes in patient status that would quickly deteriorate glycemic control (i.e. patient to be NPO for upcoming procedure, steroids tapering, starting tube feedings, etc). * Please see recommendations for outpatient antidiabetic regimen below. PLAN FOR INPATIENT GLYCEMIC CONTROL: No changes needed to current regimen. * Continue NovoLog per scale ACHS/Q6hrs while NPO * Goal range = 140 - 180 mg/dl * CF = 40 mg/dl/unit * CR = 1 unit for ever 15 g CHO consumed * A1c added to discharge instructions to be communicated to PCP. * Pharmacy is signing off of glycemic consult and will no longer be making adjustments to inpatient regimen. Please feel free to re-consult if needed. Thank you. DISCHARGE RECOMMENDATIONS: * A1c 5.8 % on 10/26/16 * Recommend continuing outpatient regimen of metformin on discharge
--- NOTE | 2016-10-26 13:36 | Palliative Care Progress Note ---
Palliative Care Progress Note Date of Service Oct 26, 2016. Subjective Consult received. Attempted to see patient several times. Both times, patient busy with visitors or with nurses. Will attempt to go back.
[2016-10-26 15:06] VITALS: BP 131/70; PULSE 85; TEMP 36.6; O2SAT 93
[2016-10-26 18:55] VITALS: BP 128/78; PULSE 82; TEMP 36.6; O2SAT 94
[2016-10-26] MEDS: SERTRALINE HCL 100 MG TAB PO SCH ×2 (20:42→20:49)
[2016-10-26 23:14] VITALS: BP 113/66; PULSE 88; TEMP 36.6; O2SAT 96
[2016-10-27 03:22] VITALS: BP 122/72; PULSE 83; TEMP 36.7; O2SAT 97
[2016-10-27] MEDS: ALBUTEROL HFA 8 GM INHALER INH SCH ×2 (03:24→09:45)
--- NOTE | 2016-10-27 03:53 | Hospitalist Progress Note ---
Hospitalist Progress Note Date of Service Oct 26, 2016. Subjective Pt evaluation today including: conversation w/ patient patient feels better Objective Vital Signs Date Time Temp Pulse Resp B/P (MAP) Pulse Ox O2 Delivery O2 Flow Rate FiO2 10/26/16 08:00 Nasal Cannula 3.0 10/26/16 07:22 36.4 83 20 137/77 (97) 94 Nasal Cannula 3.0 10/26/16 04:00 Nasal Cannula 3.0 10/26/16 03:34 36.4 83 19 128/77 (94) 96 Nasal Cannula 3.0 10/26/16 00:00 Nasal Cannula 3.0 10/25/16 23:33 36.7 90 18 111/69 (83) 98 Nasal Cannula 3.0 10/25/16 20:00 Nasal Cannula 3.0 10/25/16 19:25 36.5 89 19 134/75 (94) 96 Nasal Cannula 3.0 10/25/16 16:00 Nasal Cannula 3.0 10/25/16 15:20 36.6 87 19 126/76 (93) 96 Nasal Cannula 3.0 10/25/16 12:00 Nasal Cannula 3.0 10/25/16 11:29 36.7 87 22 147/80 (102) 95 Nasal Cannula 3.0 Physical Exam General Appearance: no apparent distress ENT: hearing grossly normal Neck: trachea midline Respiratory/Chest: chest non-tender, no respiratory distress, + crackles Cardiovascular: regular rate, rhythm Abdomen: normal bowel sounds Extremities: non-tender Laboratory Results Last 24 Hours Test 10/25/16 11:49 10/25/16 16:01 10/25/16 20:04 10/26/16 05:24 Bedside Glucose 87 mg/dl 101 mg/dl 135 mg/dl White Blood Count 7.56 K/uL Red Blood Count 4.08 M/uL Hemoglobin 12.1 g/dL Hematocrit 38.7 % Mean Corpuscular Volume 94.9 fL Mean Corpuscular Hemoglobin 29.7 pg Mean Corpuscular Hemoglobin Concent 31.3 g/dl RDW Standard Deviation 53.9 fL RDW Coefficient of Variation 15.6 % Platelet Count 187 K/uL Mean Platelet Volume 10.5 fL Sodium Level 137 mmol/L Potassium Level 4.2 mmol/L Chloride Level 104 mmol/L Carbon Dioxide Level 29 mmol/L Anion Gap 4.0 mmol/L Blood Urea Nitrogen 17 mg/dl Creatinine 0.87 mg/dl Est Creatinine Clear Calc Drug Dose 100.1 ml/min Estimated GFR () 101.3 Estimated GFR (Non- 87.4 BUN/Creatinine Ratio 20.0 Random Glucose 131 mg/dl Estimated Average Glucose 120 mg/dl Hemoglobin A1c 5.8 % Calcium Level 8.7 mg/dl Test 10/26/16 06:16 Bedside Glucose 130 mg/dl Assessment and Plan Patient is a pleasant 71 y/o male, with PMHx of T2DM with neuropathy, interstitial lung disease, HTN, dyslipidemia, and depression, who presented to the ED because weight gain. According to patient, over the last one month, patient has gained 20+ pounds. 1. Acute on chronic diastolic CHF exacerbation: Continue iv lasix good response currently - Monitor I&Os and daily weights - ECHO in 09/17- will not repeat ECHO at this time because no s/s of ischemic cardiac changes * Left ventricular systolic function is normal. * No regional wall motion abnormalities noted. * Ejection Fraction = 60-65%. * Grade I diastolic dysfunction, (abnormal relaxation pattern). * No significant valvular pathology. - Follow PRP 2. Interstitial lung disease- follows w/ Dr. Marcum: - Continue home inhalers - DuoNebs PRN SOB/wheezing 3. T2DM w/ neuropathy: - Hold Metformin 500 mg daily - BSG ACHS and sliding insulin scale Will ask pharmacy to manage 4. HTN: Lisinopril 5 mg daily 5. Depression: Zoloft 100 mg HS 6. Dyslipidemia: Crestor 20 mg HS 7. Chronic anemia- STABLE: Continue iron supplement 8. DVT prophylaxis: Heparin SQ BID 9. Code Status: LEVEL V, DNR Dispo: From home, lives w/ Discharge planning: home with home health
[2016-10-27 05:33] LABS: HEMATOCRIT 37.4 % (42-52); MEAN CELL VOLUME 93.7 fL (80-100); MEAN CORPUSCULAR HEMOGLOBIN 30.6 pg (25-34); MEAN CORPUSCULAR HGB CONC 32.6 g/dl (32-36); MEAN PLATELET VOLUME 10.6 fL (7.4-10.4); PLATELET COUNT 167 K/uL (130-400); RED BLOOD COUNT 3.99 M/uL (4.7-6.1); WHITE BLOOD COUNT 7.37 K/uL (4.8-10.8)
[2016-10-27 05:46] LABS: BUN/CREATININE RATIO 18.5 (10-20); CREATININE 0.96 mg/dl (0.60-1.40); POTASSIUM 4.4 mmol/L (3.5-5.1)
[2016-10-27 07:22] VITALS: BP 121/80; PULSE 87; TEMP 36.6; O2SAT 94
[2016-10-27] MEDS: BUDESONIDE/FORMOTEROL FUMARATE 160/4.5 60 PUFFS/INHALER INH SCH (07:42)
[2016-10-27] MEDS: DOCUSATE SODIUM 100 MG CAP PO SCH (07:42)
[2016-10-27] MEDS: ASPIRIN 81 MG ECTAB PO SCH (07:43)
[2016-10-27] MEDS: CYANOCOBALAMIN 500 MCG TAB (VIT B-12) PO SCH (07:43)
[2016-10-27] MEDS: CETIRIZINE HCL 10 MG TAB PO SCH (07:43)
[2016-10-27] MEDS: FERROUS SULFATE 325 MG TAB PO SCH (07:43)
[2016-10-27] MEDS: CHOLECALCIFEROL 1000 INTER.UNIT TAB PO SCH (07:44)
[2016-10-27] MEDS: ASCORBIC ACID 500 MG TAB PO SCH (07:44)
[2016-10-27] MEDS: LISINOPRIL 5 MG TAB PO SCH (07:45)
[2016-10-27] MEDS: INSULIN ASPART 100 UNITS/ML 3 ML PEN SC SCH ×2 (07:49→12:26)
[2016-10-27] MEDS: HEPARIN SOD 5000 UNIT/0.5 ML CARP SQ SCH (07:50)
[2016-10-27 11:39] VITALS: BP 111/71; PULSE 81; TEMP 36.6; O2SAT 95
--- NOTE | 2016-10-27 14:32 | Cardiology Consultation ---
Cardiology Consultation Date of Consultation: Oct 27, 2016. Requesting Physician: Con Reason for Consultation: CHF Pt evaluation today including: conversation w/ patient, physical exam, chart review, lab review, review of studies, conversation w/ attending History of Present Illness Patient is a 71-year-old gentleman without a known cardiac history who suffers from interstitial lung disease. Patient reports progressive edema over several days associated with some breathing difficulty and orthopnea. Patient was admitted to [facility] for the symptoms and underwent an initial diuresis with improvement in his symptoms and edema. Currently he is feeling well, nearly back to his baseline. He states that his edema has resolved. He is able lie flat. Breathing at rest is normal and unlabored. With some activity he does experience dyspnea. This is similar to his baseline. Does not report any recent chest discomfort. He did have some coughing associated with the increased weight gain and breathing difficulty. This appears to have resolved. He has not noticed any palpitations or racing heartbeats. His did volunteer some information regarding dietary indiscretion recently. She reports eating out more often and using more salt as sweet corn is now in season. Generally speaking the patient is limited by significant dyspnea on exertion. He claims to use oxygen around the clock at home. In the past he did have a diagnosis of obstructive sleep apnea but is not currently using CPAP. He feels that with he previously experienced weight loss his sleep apnea resolved. He generally does not have edema in his lower extremities. He does not describe dizziness or lightheadedness. He was recently evaluated for transplant but not felt to be good candidate due to his age and other comorbidities. He is now undergoing stem cell therapy at a clinic [facility]. Family History Diabetes mellitus No premature coronary disease Social History Smoking Status: Former Smoker History of Alcohol Use: No Review of Systems Constitutional: + see HPI Respiratory: + cough, + sputum, + dyspnea on exertion Cardiac: + see HPI Abdomen: + see HPI Male : + see HPI Neurologic: + see HPI Heme: + see HPI Endo: + see HPI Skin: + see HPI All Other Systems: Reviewed and Negative Allergies Coded Allergies: Penicillins (Verified Allergy, Mild, RASH, 05/29/16) RASH Citalopram (Verified Allergy, Unknown, joint pain, 05/29/16) Gabapentin (Verified Allergy, Unknown, joint pain, 05/29/16) Iodinated Diagnostic Agents (Verified Allergy, Unknown, HIVES, 05/29/16) Statins (Verified Adverse Reaction, Unknown, SEVERE MUSCLE ACHES, 05/29/16) PT CURRENTLY TAKING A LOW DOSE Medications Current Inpatient Medications Medications (Trade) Dose Ordered Sig/Senthil Route Start Time Stop Time Status Last Admin Dose Admin Heparin Sodium (Porcine) (Heparin Sq 5000 Unit/0.5ml) 5,000 unit Q12 SQ 10/24/16 21:00 11/23/16 20:59 10/27/16 07:50 5,000 UNIT Acetaminophen (Tylenol Tab) 650 mg Q4H PRN PO 10/24/16 19:45 11/23/16 19:44 Al Hydrox/Mg Hydrox/Simethicone (Maalox Max Susp) 15 ml Q4H PRN PO 10/24/16 19:45 11/23/16 19:44 Magnesium Hydroxide (Milk Of Magnesia Susp) 30 ml Q12H PRN PO 10/24/16 19:45 11/23/16 19:44 Ondansetron HCl (Zofran Inj) 4 mg Q6H PRN IV 10/24/16 19:45 11/23/16 19:44 Nitroglycerin (Nitrostat Tab) 0.4 mg UD PRN SL 10/24/16 19:45 11/23/16 19:44 Aspirin (Ecotrin Tab) 81 mg QAM PO 10/25/16 09:00 11/24/16 08:59 10/27/16 07:43 81 MG Polyethylene (Miralax Powder Packet) 17 gm DAILY PRN PO 10/24/16 19:45 11/23/16 19:44 Insulin Aspart (novoLOG ASPART) SLIDING SCALE G... ACHS SC 10/24/16 21:00 11/23/16 20:59 10/27/16 12:26 4 UNITS Albuterol/ Ipratropium (Duoneb) 3 ml Q4R PRN INH 10/24/16 19:45 11/23/16 19:44 Budesonide/ Formoterol Fumarate (Symbicort 160/ 4.5 Inh) 2 puffs BID INH 10/24/16 21:00 11/23/16 20:59 10/27/16 07:42 2 PUFFS Cetirizine HCl (zyrTEC TAB) 10 mg DAILY PO 10/25/16 09:00 11/24/16 08:59 10/27/16 07:43 10 MG Cyanocobalamin (Vitamin B-12 Tab) 1,000 mcg DAILY PO 10/25/16 09:00 11/24/16 08:59 10/27/16 07:43 1,000 MCG Docusate Sodium (coLACE CAP) 100 mg BID PO 10/24/16 21:00 11/23/16 20:59 Lisinopril (Zestril Tab) 5 mg DAILY PO 10/25/16 09:00 11/24/16 08:59 10/27/16 07:45 5 MG Rosuvastatin Calcium (Crestor Tab) 20 mg Q3D@0900 PO 10/25/16 09:00 11/24/16 08:59 10/25/16 08:19 20 MG Sertraline HCl (Zoloft Tab) 100 mg HS PO 10/24/16 21:00 11/23/16 20:59 Ascorbic Acid (Vitamin C Tab) 500 mg DAILY PO 10/25/16 09:00 11/24/16 08:59 10/27/16 07:44 500 MG Cholecalciferol (Vitamin D Tab) 2,000 inter.unit DAILY PO 10/25/16 09:00 11/24/16 08:59 10/27/16 07:44 2,000 INTER.UNIT Ferrous Sulfate (Feosol Tab) 325 mg DAILY PO 10/25/16 09:00 11/24/16 08:59 10/27/16 07:43 325 MG Miscellaneous (Iv Fluids Completed) 1 ea PRN PRN N/A 10/24/16 20:45 10/24/17 20:44 Albuterol (Ventolin Hfa Inhaler) 2 puffs Q6H INH 10/27/16 04:00 11/26/16 03:59 10/27/16 09:45 2 PUFFS Physical Exam Vital Signs Past 12 Hours Date Time Temp Pulse Resp B/P (MAP) Pulse Ox O2 Delivery O2 Flow Rate FiO2 10/27/16 12:00 Nasal Cannula 3.0 10/27/16 11:39 36.6 81 19 111/71 (84) 95 Nasal Cannula 3.0 10/27/16 08:00 Nasal Cannula 3.0 10/27/16 07:22 36.6 87 21 121/80 (94) 94 Nasal Cannula 3.0 10/27/16 04:00 Nasal Cannula 3.0 10/27/16 03:22 36.7 83 20 122/72 (89) 97 Nasal Cannula 3.0 The patient is alert and oriented. Mood and affect appeared normal. He answered all questions appropriately. HEENT: Pupils are equal and reactive to light and accommodation. Extraocular movements are intact. The sclerae are anicteric. Neuro: Cranial nerves intact Neck: Patient's neck is supple. He has palpable carotid pulses bilaterally without bruits on auscultation. There is no evidence of jugular venous distention. The thyroid is not enlarged. Lungs: Clear to auscultation bilaterally. He has good air movement without use of accessory muscles. No rales or rhonchi. Very soft interstitial sounds Cardiac: Heart demonstrates a regular rate and rhythm. Normal S1 and S2. Systolic ejection murmur appreciated. Pulses: The patient has palpable radial pulses bilaterally that are equal in intensity Extremities: There was no evidence of hypoperfusion. There is no cyanosis or clubbing. There is no edema. Skin: I did not appreciate any rashes on examination today. Data Laboratory Results: Last 24 Hours Test 10/26/16 16:01 10/26/16 19:54 10/27/16 05:06 10/27/16 06:02 Bedside Glucose 133 mg/dl 112 mg/dl 125 mg/dl White Blood Count 7.37 K/uL Red Blood Count 3.99 M/uL Hemoglobin 12.2 g/dL Hematocrit 37.4 % Mean Corpuscular Volume 93.7 fL Mean Corpuscular Hemoglobin 30.6 pg Mean Corpuscular Hemoglobin Concent 32.6 g/dl RDW Standard Deviation 52.8 fL RDW Coefficient of Variation 15.4 % Platelet Count 167 K/uL Mean Platelet Volume 10.6 fL Sodium Level 138 mmol/L Potassium Level 4.4 mmol/L Chloride Level 103 mmol/L Carbon Dioxide Level 31 mmol/L Anion Gap 4.0 mmol/L Blood Urea Nitrogen 18 mg/dl Creatinine 0.96 mg/dl Est Creatinine Clear Calc Drug Dose 90.7 ml/min Estimated GFR () 92.4 Estimated GFR (Non- 79.8 BUN/Creatinine Ratio 18.5 Random Glucose 129 mg/dl Calcium Level 9.0 mg/dl Test 8/26/17 11:15 Bedside Glucose 118 mg/dl Imaging: Chest x-ray demonstrated chronic interstitial changes Telemetry reviewed: No significant edema I reviewed his records from the [facility] dated May 29, 2016 regarding his right and left heart catheterization. Normal right heart pressures. Normal wedge pressure. Normal coronaries without evidence of obstructive disease. Patient underwent echocardiography September 26, 2016: Preserved LV systolic function. Stage I diastolic dysfunction. Normal RV systolic function. No significant valvular disease Assessment & Plan 1. Edema: Patient did describe symptoms of peripheral edema and some pulmonary vascular congestion. However, his N terminal proBNP was quite low at the time of admission making diagnosis of congestive heart failure suspect. He did however respond well to diuresis with resolution of his edema and symptoms. He is known to have preserved LV systolic function with normal diastolic function for age. Some of his edema may be related to dietary indiscretion. He is also undergoing stem cell therapy and I am not sure if this involves administration of medications which could have exacerbated this condition or significant volume administration. He did not describe other cardiac symptoms suggestive of coronary insufficiency, and he had a relatively normal a coronary angiogram performed in May of this year. He does not describe symptoms consistent with a transient arrhythmia. Given his improvement in symptoms and the previously obtained cardiac studies, do not feel that any additional cardiac evaluation is necessary. Hopefully with lower sodium intake he can avoid additional episodes edema.
[2016-10-27 14:54] VITALS: BP 111/71; PULSE 81; TEMP 36.6; O2SAT 95
--- NOTE | 2016-10-27 15:23 | Discharge Instructions ---
Discharge Instructions Date of Service Oct 27, 2016. Admission Reason for Admission: Chf, Sob, Weight Gain Discharge Discharge Diagnosis / Problem: Diastolic CHF Discharge Goals Goal(s): Decrease discomfort Activity Recommendations Activity Limitations: resume your previous activity Exercise/Sports Limitations: as tolerated . Instructions / Follow-Up Instructions / Follow-Up Primary Care Physician in 1 week Current Hospital Diet Patient's current hospital diet: AHA Diet (Heart Healthy), Diabetes Type 2 Diet , Low Sodium Diet (2gm Na) Discharge Diet Recommended Diet: Low Sodium Diet (2gm Na) Pending Studies Studies pending at discharge: no Laboratory Results Hemoglobin A1c Test 10/26/16 05:24 Range/Units Estimated Average Glucose 120 mg/dl Hemoglobin A1c 5.8 H 4.5-5.6 % Medical Emergencies . Who to Call and When: Medical Emergencies: If at any time you feel your situation is an emergency, please call 911 immediately. . Non-Emergent Contact Non-Emergency issues call your: Primary Care Provider . Past History Medical & Surgical History: (1) CHF (congestive heart failure) (2) Chronic interstitial lung disease (3) Hypertension Nos (4) Esophageal Reflux . "Provider Documentation" section prepared by Christophe Andujar. . VTE Core Measure Inpt VTE Proph given/why not?: Unfractionated heparin SQ, T.E.Catalina. Stockings, SCD 's
--- NOTE | 2016-10-27 16:19 | Pulmonary Consultation ---
History General Date of Service: Oct 27, 2016. Stated Complaint: Chf, Sob, Weight Gain HPI The patient is a 71 year old male who presents to [facility] with complaints of Chf, Sob, Weight Gain. The patient's primary care provider is Greer Monroe M.D.. 71-year-old male admitted for acute on chronic respiratory insufficiency. Patient has a past medical history significant for progressive interstitial lung disease. He is undergone cryoprobe biopsy as well as high-resolution CAT scans with no definitive diagnosis of the underlying process. He's been evaluated by [facility] [place] and Is Currently Being Treated with Stem Cell transplant for his underlying ILD. He notes that he has had a progressive weight gain over the past 4-6 weeks. The EMS system notes a 14+ weight gain in the last 2 weeks. Over that time the patient has had progressive lower extremity swelling, progressive dyspnea on exertion to the point he was dispensed at rest. During our interview today he denied: Fever, chills, pleurisy , classic cardiac chest pain but did note some mild nonproductive coughing. Echocardiogram performed 09/26/2016 LV: EF=60-65%, grade 1 diastolic dysfunctioning RV: TAPSE >1.5cm Atria: Borderline right atrial enlargement Valve: All valves anatomically within normal limits IVC: Estimated right atrial pressure 3 mmHg Microbiology: Expectorated sputum 12/01/2011: Haemophilus parainfluenza/segins Bronchial washing 02/21/2016: Aspergillus [place] Historian: patient, EMS Review of Systems Constitutional: reports: as stated in HPI Eyes: reports: no symptoms ENT: reports: no symptoms Cardiovascular: reports: as stated in HPI Respiratory: reports: as stated in HPI Gastrointestinal: reports: no symptoms Genitourinary - Male: reports: no symptoms Musculoskeletal: reports: no symptoms Integumentary: reports: no symptoms Neurologic: reports: no symptoms Psychiatric: reports: no symptoms Endocrine: no symptoms Hematologic / Lymphatic: no symptoms Allergic / Immunologic: no symptoms Past Medical History Past Medical History: #1 interstitial lung disease of unknown etiology #2 allergic rhinitis #3 anal fissure #4 arthritis #5 bilateral carpal tunnel syndrome #6 carcinoma of the bladder #7 history of COPD #8 GERD #9 oxygen dependent baseline 4-6 L #10 depression #11 diabetes #12 peripheral neuropathy #13 diverticulitis #14 hearing loss #15 hemorrhoids #16 osteoarthritis of the right hand #17 obesity #18 postprocedural pneumothorax #19 sleep apnea but refuses CPAP device Past Surgical History: #1 back surgery #2 biopsy of the skin #3 bladder radical cystectomy #4 renal lithotripsy #5 lymphadenectomy #6 cryoprobe transbronchial biopsy Family History Diabetes mellitus 1. Family history of Diabetes Mellitus 2. Family history of cerebrovascular accident (Z82.3) 3. Family history of hypertension (Z82.49) 4. Family history of cerebrovascular accident (Z82.3) 5. Family history of Coronary Artery Disease 6. Family history of Diabetes Mellitus 7. Denied: Family history of colon cancer 8. Denied: Family history of malignant neoplasm of breast 9. Denied: Family history of malignant neoplasm of ovary 10. Denied: Family history of myocardial infarction 11. Denied: Family history of Prostate Cancer Other: Asthma Social History Denied: History of Alcohol Use (History) Dental care, regularly Exercise limited by physical condition Former smoker (Z87.891) Denied: History of drug use Living situation Marital History - Currently Never used moist powdered tobacco (Z78.9) No alcohol use No secondhand smoke exposure (Z78.9) Occupation Retired From Work Special needs due to hearing impairment (H91.90) Denied: History of Special needs due to visual impairment Hx Tobacco Use In Past Year?: No Smoking Status: Former Smoker Alcohol: no current use Marital status: Housing status: lives with significant other Occupational Status: unemployed, disabled Immunizations History of Tetanus Vaccine?: Yes History of Pneumococcal: Yes History of Hepatitis B Vaccine: No History of MDRO History of MDRO: No Allergies Coded Allergies: Penicillins (Verified Allergy, Mild, RASH, 05/29/16) RASH Citalopram (Verified Allergy, Unknown, joint pain, 05/29/16) Gabapentin (Verified Allergy, Unknown, joint pain, 05/29/16) Iodinated Diagnostic Agents (Verified Allergy, Unknown, HIVES, 05/29/16) Statins (Verified Adverse Reaction, Unknown, SEVERE MUSCLE ACHES, 05/29/16) PT CURRENTLY TAKING A LOW DOSE Current Medications Reported Home Medications Medications Dose Route/Sig Max Daily Dose Days Date Category Dose Instructions Vitamin C (Calcium Ascorbate) 500 Mg Tab 1 Tab PO DAILY 10/24/16 Reported Iron (Ferrous Sulfate) 325 Mg Tab 325 Mg PO DAILY 10/24/16 Reported Ventolin Hfa (Albuterol) 200 Puffs/17718 Mcg Aers 2 Puffs INH Q6H 10/24/16 Reported [Albuterol Solution ] 0.5% 1 Vial NEB PRN UD 10/24/16 Reported Oxygen Gas 2 Liters NA CONTINOUS 365 12/09/15 Rx Tylenol (Acetaminophen) 500 Mg Tab 1,000 Mg PO UD PRN 12/05/15 Reported Aspirin 81 (Aspirin) 81 Mg Tab 81 Mg PO QAM 12/05/15 Reported Vitamin B-12 (Cyanocobalamin) 1,000 Mcg Tab 1,000 Mcg PO DAILY 08/26/15 Reported Flunisolide (Flunisolide (Nasal)) 0.025 % Spr 1 [place] STACY BID 08/26/15 Reported Crestor (Rosuvastatin Calcium) 20 Mg Tab 20 Mg PO UD 08/26/15 Reported ONE TABLET EVERY 3RD DAY Zyrtec (Cetirizine HCl) 10 Mg Tab 10 Mg PO DAILY 08/26/15 Reported Colace (Docusate Sodium) 100 Mg Cap 1 Cap PO BID 30 08/26/15 Reported Zoloft (Sertraline Hcl) 100 Mg Tab 100 Mg PO HS 12/03/14 Reported Lisinopril 5 Mg Tab 5 Mg PO DAILY 12/03/14 Reported Symbicort 160/4.5 Inhaler (Budesonide/Formoterol Fumarate) Aero 2 Puffs INH BID 08/24/14 Reported Glucophage (Metformin Hcl) 500 Mg Tab 500 Mg PO DAILY 04/22/14 Reported Physical Physical Exam Vital Signs: Date Time Temp Pulse Resp B/P (MAP) Pulse Ox O2 Delivery O2 Flow Rate FiO2 10/27/16 14:54 36.6 81 19 95 Nasal Cannula 10/27/16 12:00 Nasal Cannula 3.0 10/27/16 11:39 36.6 81 19 111/71 (84) 95 Nasal Cannula 3.0 10/27/16 08:00 Nasal Cannula 3.0 10/27/16 07:22 36.6 87 21 121/80 (94) 94 Nasal Cannula 3.0 10/27/16 04:00 Nasal Cannula 3.0 10/27/16 03:22 36.7 83 20 122/72 (89) 97 Nasal Cannula 3.0 10/27/16 00:00 Nasal Cannula 3.0 10/26/16 23:14 36.6 88 22 113/66 (82) 96 Nasal Cannula 3.0 10/26/16 20:00 Nasal Cannula 3.0 10/26/16 18:55 36.6 82 20 128/78 (95) 94 Nasal Cannula 3.0 General Appearance: WELL-APPEARING, NO APPARENT DISTRESS Head: NORMOCEPHALIC, ATRAUMATIC Eyes: EOMI, SCLERAE NORMAL ENT: NORMAL EAR EXAM, NORMAL NASAL EXAM, NORMAL MOUTH EXAM, NORMAL THROAT EXAM , NORMAL DENTAL EXAM Neck: NORMAL RANGE OF MOTION, NO TENDERNESS, TRACHEA MIDLINE Respiratory: other (mild rhonchi appreciated diffusely) Cardiovasular: REGULAR RATE/RHYTHM, NORMAL S1S2, NO M/G/R, NO MURMUR, NO GALLOP Abdomen: NON TENDER, NORMAL BOWEL SOUNDS, NO REBOUND, NO MASSES, NO GUARDING, NO ORGANOMEGALY Genitourinary - Male: EXTERNAL GENITALIA NORMAL Back: NORMAL INSPECTION, NO MIDLINE TENDERNESS, NO CVA TENDERNESS, NO PARAVERTEBRAL TTP Upper Extremities: NO EDEMA, NO DEFORMITY, NORMAL ROM Lower Extremities: edema Edema: Bilateral LE (1+) Pulses: carotid (R) (2+), carotid (L) (2+), posterior tibial (R), posterior tibial (L) (2+) Neuro: ALERT, ORIENTED x 3, NORMAL MOTOR EXAM, NORMAL SENSATION, NORMAL CEREBELLAR EXAM Reflexes: biceps (R) (2+), bicpes (L) (2+), achilles (R) (1+), achilles (L) (1+ ) Babinski Testing: right (downgoing), left (downgoing) Psychiatric: NORMAL AFFECT, NO SUICIDAL IDEATION Diagnostics Labs Results Past 24 Hours Test 10/26/16 19:54 10/27/16 05:06 10/27/16 06:02 10/27/16 11:15 Range/Units Bedside Glucose 112 125 118 70-99 mg/dl White Blood Count 7.37 4.8-10.8 K/uL Red Blood Count 3.99 4.7-6.1 M/uL Hemoglobin 12.2 14.0-18.0 g/dL Hematocrit 37.4 42-52 % Mean Corpuscular Volume 93.7 80-100 fL Mean Corpuscular Hemoglobin 30.6 25-34 pg Mean Corpuscular Hemoglobin Concent 32.6 32-36 g/dl RDW Standard Deviation 52.8 36.4-46.3 fL RDW Coefficient of Variation 15.4 11.5-14.5 % Platelet Count 167 130-400 K/uL Mean Platelet Volume 10.6 7.4-10.4 fL Sodium Level 138 136-145 mmol/L Potassium Level 4.4 3.5-5.1 mmol/L Chloride Level 103 98-107 mmol/L Carbon Dioxide Level 31 21-32 mmol/L Anion Gap 4.0 3-11 mmol/L Blood Urea Nitrogen 18 7-18 mg/dl Creatinine 0.96 0.60-1.40 mg/dl Est Creatinine Clear Calc Drug Dose 90.7 ml/min Estimated GFR () 92.4 Estimated GFR (Non- 79.8 BUN/Creatinine Ratio 18.5 10-20 Random Glucose 129 70-99 mg/dl Calcium Level 9.0 8.5-10.1 mg/dl Diagnostic Radiology Chest x-ray 10/24/2016: Continue interstitial changes no acute changes noted CT thorax a 21/05/2016: Compared to 01/20/2016 Chronic interstitial changes no acute findings noted EKG Interpretation: NORMAL EKG Impression Assessment and Plan 71-year-old gentleman with prior gases interstitial lung disease: #1 shortness of breath: Patient shortness of breath was most likely from progressive group 3 pulmonary hypertension with right ventricular strain. The patient is undergone echocardiogram as well as right and left heart catheterization for his pulmonary transplant workup. This did not show any acute signs of heart failure no coronary artery disease. Shortness of breath is most likely secondary to progressive cor pulmonale/group 3 pulmonary hypertension and his poor overall eating habits for the previous 4-6 weeks. At this time we've had a long discussion about maintaining proper fluid balance. Follow-up: Patient will be followed up in the [facility]. I' ll also put another request for pulmonary rehabilitation.
--- NOTE | 2016-10-29 02:31 | DISCHARGE SUMMARY ---
Please see dictated H and P for full details of presentation. HISTORY OF PRESENT ILLNESS: The patient is a 71-year-old with history of diabetes, interstitial lung disease, dyslipidemia, hypertension, depression, who presented to the Emergency Room because of weight gain and shortness of breath. The patient had gained 20 pounds in the past month and was discovered to have fluid overload secondary to his poor dietary have habits, now monitor in his sodium intake. The patient was brought in and diuresed aggressively. He was seen in consultation by Dr. Vazquez agreed with diuresis and felt that the edema was related to his dietary indiscretions. Dr. Marcum agreed and went over the expectations. Dr. Marcum also felt that the shortness of breath is most likely secondary to progressive cor pulmonale, pulmonary hypertension. He was discharged in stable condition. Please see medical reconciliation sheet for full details of the medications he was discharged home on. Time spent in review of the chart, discussion with the patient on the date of discharge 31 minutes.
== END 2016-10-27 16:29 | disposition home or self-care (01) ==
LOC: C.EDB 15:26 → C.2T 19:48 → ENRESERV 20:06
PROVIDERS: ADMIT Family Medicine; ATTEND Family Medicine
DX: J84.89 Other specified interstitial pulmonary diseases (principal); I50.9 Heart failure, unspecified; I10 Essential (primary) hypertension; E78.5 Hyperlipidemia, unspecified; J44.9 Chronic obstructive pulmonary disease, unspecified; K21.9 Gastro-esophageal reflux disease without esophagitis; E11.40 Type 2 diabetes mellitus with diabetic neuropathy, unspecified; Z87.891 Personal history of nicotine dependence; Z79.82 Long term (current) use of aspirin; Z79.84 Long term (current) use of oral hypoglycemic drugs; Z79.899 Other long term (current) drug therapy; Z99.81 Dependence on supplemental oxygen; F32.9 Major depressive disorder, single episode, unspecified

== ENCOUNTER → 2017-03-25 | Outpatient (CLI) | payer OTHER ==
[~2017-03-25] MED LIST changes: -ALBU0.5N2 NEB; -ALBUAER2 INH; +ALBUTEROL SOLUTION NEB; +ASPI-435 PO; +CALC500T72 PO; -CHOL100010 PO; +CHOL20009 PO; +FERR1TAB23 PO; +TYLOTC500 PO; +VNTHFA/IN INH
== END | disposition home or self-care (01) ==
LOC: C.LAB 07:45
PROVIDERS: ATTEND Urology
DX: C67.9 Malignant neoplasm of bladder, unspecified (principal)

== ENCOUNTER → 2017-04-18 | Outpatient (CLI) | payer OTHER | END | disposition home or self-care (01) | LOC: C.LABSPEC 17:52 | PROVIDERS: ATTEND Urology | DX: C67.9 Malignant neoplasm of bladder, unspecified (principal); N39.0 Urinary tract infection, site not specified ==

== ENCOUNTER 2018-07-29 16:14 | Inpatient (IN) ==
[2018-07-29] MEDS ORDERED: CEFEPIME 2,000 MG/20 ML VIAL IV STA (16:46)
[2018-07-29] MEDS ORDERED: DOXYCYCLINE HYCLATE 100 MG in DEXTROSE 5% 100 ML IV STA (16:46)
--- NOTE | 2018-07-29 16:50 | XRay Report ---
XR chest 1V portable CLINICAL HISTORY: Chest Pain dyspnea COMPARISON STUDY: 04/18/2018 FINDINGS: Slightly progressive diffuse left hemithoracic interstitial change. Moderate stable cardiomegaly. Diaphragms are smooth. Mild chronic elevation right hemidiaphragm. IMPRESSION: Chronic interstitial change. Stable cardiomegaly. No acute process. The above report was generated using voice recognition software. It may contain grammatical, syntax or spelling errors. Electronically signed by: Cirilo Gonzalez M.D. 07/29/2018 4:49 PM
[2018-07-29] MEDS ORDERED: methylPREDNISolone 125 MG/2 ML VIAL IV STA (16:54)
[2018-07-29] MEDS ORDERED: ALBUT/IPRATROP 3MG/0.5MG NEB 3 ML VIAL NEB STA (16:54)
[2018-07-29] MEDS ORDERED: ACETAMINOPHEN 1,000 MG/100 ML VIAL IV STA (16:54)
[2018-07-29 17:58] LABS: Basophils # (auto) 0.02 K/uL (0-0.2); Basophils % (auto) 0.2 %; Eosinophils # (auto) 0.08 K/uL (0-0.5); Eosinophils % (auto) 0.7 %; Hematocrit (blood only) 36.3 % (42-52); Hemoglobin 11.8 g/dL (14.0-18.0); Immature Granulocytes # (auto) 0.03 K/uL (0.00-0.02); Immature Granulocytes % (auto) 0.3 %; Lymphocytes # (auto) 0.96 K/uL (1.2-3.4); Lymphocytes % (auto) 8.4 %; Mean Corpuscular Hgb Conc 32.5 g/dL (32-36); Mean Corpuscular Volume 96.5 fL (80-100); Mean Platelet Volume 11.1 fL (7.4-10.4); Monocytes # (auto) 0.77 K/uL (0.11-0.59); Monocytes % (auto) 6.7 %; Neutrophils % (auto) 83.7 %; Platelet Count 148 K/uL (130-400); RDW Coefficient of Variation 14.1 % (11.5-14.5); Red Blood Count 3.76 M/uL (4.7-6.1); White Blood Count 11.46 K/uL (4.8-10.8)
[2018-07-29 18:19] LABS: INR 1.1 (0.9-1.1); Prothrombin Time 11.5 Seconds (9.0-12.0)
[2018-07-29 18:20] LABS: Alanine Aminotransferase 26 U/L (12-78); Albumin Level 3.2 gm/dl (3.4-5.0); Aspartate Aminotransferase 41 U/L (15-37); BUN Creatinine Ratio 18.9 (10-20); Blood Urea Nitrogen 17 mg/dl (7-18); Calcium 8.7 mg/dl (8.5-10.1); Carbon Dioxide 26 mmol/L (21-32); Chloride 106 mmol/L (98-107); Creatinine Clr Calc Pharmacy 95.3 ml/min; Est GFR (African American) 99.5; Est GFR (Non-African American) 85.8; Glucose 131 mg/dl (70-99); Potassium 4.1 mmol/L (3.5-5.1); Sodium 137 mmol/L (136-145)
[2018-07-29 18:36] LABS: Albumin Globulin Ratio 0.7 (0.9-2); Alkaline Phosphatase 69 U/L (45-117); Bilirubin,Total 1.3 mg/dl (0.2-1); Globulin 4.7 gm/dl (2.5-4.0); NT Pro B Type Natriuretic Pept 67 pg/ml (0-900); Phosphorus 1.5 mg/dl (2.5-4.9); Total Protein 7.9 gm/dl (6.4-8.2); Troponin I < 0.015 ng/ml (0-0.045)
[2018-07-29 18:37] LABS: Appearance Urine Clear (Clear); Bacteria Urine Automated Negative (Negative); Bilirubin Urine Negative (Negative); Blood Urine Negative (Negative); Color Urine Yellow; Epithelial Cell Urine Auto >30 /lpf (0-5); Glucose Urine UA Negative (Negative); Ketones Urine Negative (Negative); Leukocyte Esterase Urine Trace (Negative); Nitrite Urine Negative (Negative); Protein Urine Negative (Negative); RBC Urine Automated 0-4 /hpf (0-4); Specific Gravity Urine 1.014 (1.000-1.030); Urobilinogen Urine Negative (Negative); pH Urine 6.5 (4.5-7.5)
[2018-07-29] MEDS ORDERED: POTASSIUM PHOS 3 MMOL/1 ML INFUSION IV STA (19:00)
[2018-07-29] MEDS ORDERED: SODIUM CHLORIDE 0.9% 500 ML IV ONE (19:00)
[2018-07-29] MEDS ORDERED: POTASSIUM PHOSPHATE 9 MMOL in SODIUM CHLORIDE 0.9% 250 ML IV ONE (19:15)
--- NOTE | 2018-07-29 19:46 | Emergency Department Note ---
Entered by Levy Arambula acting as a scribe for Sandip Morse MD History of Present Illness General Chief complaint: Shortness of Breath/Dyspnea Stated complaint: SOB Time Seen by Provider: 07/29/18 16:21 Source: patient History of Present Illness Onset (ago): day(s) 3 Location: chest (cough) Pain Consistency: + other (worsening) Maximum Pain Intensity: 0 Relieved By: + other (SOB relieved by nebulizer) Associated symptoms: + denies other symptoms (abdominal pain), + shortness of breath, + weakness and + other (dizziness); no chest pain and no nausea/vomiting The patient is a 73 year old M who presents to the Emergency Room with complaints of a worsening cough that started 3 days ago. He notes that he is producing green mucous with his coughing. He states that his symptoms started 3 days ago with a cough. He notes that yesterday he was experiencing weakness and adds that he could not walk. He states that he is currently experiencing weakness, dizziness, and shortness of breath. He adds that his shortness of breath is now better due to the nebulizer treatment that he received in the ED. He denies currently experiencing nausea, vomiting, chest pain, and abdominal pain. He notes that he has a history of COPD and interstitial lung disease. He denies being on a water pill. He states that he takes a baby aspirin daily. Home Medications Home Medications Medication Instructions Recorded Confirmed Type albuterol sulfate [Ventolin HFA] 2 puff INHALATION Q6H PRN 07/29/18 07/29/18 History ascorbic acid (vitamin C) 500 mg PO QAM 07/29/18 07/29/18 History aspirin 81 mg PO QAM 07/29/18 07/29/18 History budesonide-formoterol 2 puff INHALATION BID 07/29/18 07/29/18 History cholecalciferol (vitamin D3) 2,000 unit PO QAM 07/29/18 07/29/18 History [Vitamin D3] cyanocobalamin (vitamin B-12) 1,000 mcg PO QAM 07/29/18 07/29/18 History [Vitamin B-12] ferrous sulfate 325 mg PO QAM 07/29/18 07/29/18 History ipratropium-albuterol 3 ml INHALATION QID PRN 07/29/18 07/29/18 History lisinopril 5 mg PO QAM 07/29/18 07/29/18 History loratadine 10 mg PO QAM 07/29/18 07/29/18 History metformin 1,000 mg PO BID 07/29/18 07/29/18 History rosuvastatin 40 mg PO QPM 07/29/18 07/29/18 History semaglutide 0.5 mg SUBCUT WK 07/29/18 07/29/18 History Allergies Allergy/AdvReac Type Severity Reaction Status Date / Time Penicillins Allergy Mild Rash Verified 07/29/18 17:09 citalopram Allergy Unknown joint pain Verified 07/29/18 17:09 gabapentin Allergy Unknown joint pain Verified 07/29/18 17:09 Iodinated Contrast- Oral and Allergy Unknown Hives Verified 07/29/18 17:09 IV Dye Aqrgxli-Itr-Oew Reductase AdvReac Unknown SEVERE Verified 07/29/18 17:31 Inhibitor MUSCLE ACHES Past Med/Surg History Medical History Neuropathy (Chronic) CHF (congestive heart failure) (Chronic) COPD (chronic obstructive pulmonary disease) (Chronic) Interstitial lung disease (Chronic) Family History Other No significant family history Social History Preferred Language: Trinidadian Communication Ability: Effective Scutcher Tender Required: No Beliefs That Will Affect Care: None Current Living Situation: Spouse Feels Safe at Home: Yes Safety Concerns: Feels Safe At This Time Smoking Status: Former smoker Tobacco Type: cigarettes Hx Alcohol Use: No Hx Substance Use: No Review of Systems See HPI for pertinent positives & negatives. and A total of 10 systems reviewed and were otherwise negative Physical Exam Vital Signs Vital Signs - 24 hr 07/29/18 16:18 07/29/18 16:21 07/29/18 16:24 Temperature 39.1 C H Temperature Source Oral Sepsis Recent Fever Within 48 Hours No Sepsis New/Unexplained Change in Mental Status No Sepsis Action Taken by Nursing No Action Required Pulse Rate 115 H 127 H 118 H Pulse Rate [Finger] Pulse Rate from SpO2 Sensor 124 H 119 H Respiratory Rate 20 21 28 H Respiratory Effort / Characteristics Respiratory Depth Normal Blood Pressure 130/82 108/95 Blood Pressure [Right Arm] Blood Pressure Mean 98 99 Blood Pressure Mean [Right Arm] Pulse Oximetry 95 96 94 Oxygen Delivery Method Nasal Cannula Oxygen Flow Rate 4 4 4 07/29/18 16:28 07/29/18 16:30 07/29/18 16:32 Temperature Temperature Source Sepsis Recent Fever Within 48 Hours Sepsis New/Unexplained Change in Mental Status Sepsis Action Taken by Nursing Pulse Rate 113 H 117 H Pulse Rate [Finger] Pulse Rate from SpO2 Sensor 111 H 117 H Respiratory Rate 27 H 33 H Respiratory Effort / Characteristics Respiratory Depth Blood Pressure 114/72 Blood Pressure [Right Arm] Blood Pressure Mean 86 Blood Pressure Mean [Right Arm] Pulse Oximetry 95 98 98 Oxygen Delivery Method Nasal Cannula Oxygen Flow Rate 4 4 4 07/29/18 16:40 07/29/18 16:50 07/29/18 17:00 Temperature Temperature Source Sepsis Recent Fever Within 48 Hours Sepsis New/Unexplained Change in Mental Status Sepsis Action Taken by Nursing Pulse Rate 115 H 115 H 115 H Pulse Rate [Finger] Pulse Rate from SpO2 Sensor 115 H 115 H 114 H Respiratory Rate 26 H 28 H 29 H Respiratory Effort / Characteristics Respiratory Depth Blood Pressure Blood Pressure [Right Arm] Blood Pressure Mean Blood Pressure Mean [Right Arm] Pulse Oximetry 97 96 97 Oxygen Delivery Method Oxygen Flow Rate 4 4 07/29/18 17:01 07/29/18 17:10 07/29/18 17:19 Temperature Temperature Source Sepsis Recent Fever Within 48 Hours Sepsis New/Unexplained Change in Mental Status Sepsis Action Taken by Nursing Pulse Rate 114 H 113 H Pulse Rate [Finger] 113 H Pulse Rate from SpO2 Sensor 112 H 113 H Respiratory Rate 24 10 L 22 Respiratory Effort / Characteristics Spontaneous Respiratory Depth Blood Pressure 125/80 Blood Pressure [Right Arm] Blood Pressure Mean 95 Blood Pressure Mean [Right Arm] Pulse Oximetry 97 96 95 Oxygen Delivery Method Nasal Cannula Oxygen Flow Rate 4 4 4 07/29/18 17:20 07/29/18 17:30 07/29/18 17:31 Temperature Temperature Source Sepsis Recent Fever Within 48 Hours Sepsis New/Unexplained Change in Mental Status Sepsis Action Taken by Nursing Pulse Rate 117 H 113 H 115 H Pulse Rate [Finger] Pulse Rate from SpO2 Sensor 119 H 111 H 115 H Respiratory Rate Respiratory Effort / Characteristics Respiratory Depth Blood Pressure 138/68 Blood Pressure [Right Arm] Blood Pressure Mean 91 Blood Pressure Mean [Right Arm] Pulse Oximetry 97 90 Oxygen Delivery Method Oxygen Flow Rate 4 4 4 07/29/18 17:40 07/29/18 17:48 07/29/18 17:55 Temperature Temperature Source Sepsis Recent Fever Within 48 Hours Sepsis New/Unexplained Change in Mental Status Sepsis Action Taken by Nursing Pulse Rate 116 H 115 H Pulse Rate [Finger] 116 H Pulse Rate from SpO2 Sensor 115 H 116 H Respiratory Rate 24 27 H Respiratory Effort / Characteristics Labored Respiratory Depth Blood Pressure Blood Pressure [Right Arm] 138/68 Blood Pressure Mean Blood Pressure Mean [Right Arm] 91 Pulse Oximetry 94 93 92 Oxygen Delivery Method Nasal Cannula Oxygen Flow Rate 4 07/29/18 18:00 07/29/18 18:02 07/29/18 18:10 Temperature Temperature Source Sepsis Recent Fever Within 48 Hours Sepsis New/Unexplained Change in Mental Status Sepsis Action Taken by Nursing Pulse Rate 109 H 112 H 105 H Pulse Rate [Finger] Pulse Rate from SpO2 Sensor 105 H 104 H 103 H Respiratory Rate 23 19 18 Respiratory Effort / Characteristics Respiratory Depth Blood Pressure 127/55 L Blood Pressure [Right Arm] Blood Pressure Mean 79 Blood Pressure Mean [Right Arm] Pulse Oximetry 94 93 94 Oxygen Delivery Method Oxygen Flow Rate 07/29/18 18:20 07/29/18 18:30 07/29/18 18:31 Temperature Temperature Source Sepsis Recent Fever Within 48 Hours Sepsis New/Unexplained Change in Mental Status Sepsis Action Taken by Nursing Pulse Rate 111 H 114 H 106 H Pulse Rate [Finger] Pulse Rate from SpO2 Sensor 110 H 114 H 106 H Respiratory Rate 23 Respiratory Effort / Characteristics Respiratory Depth Blood Pressure 139/65 Blood Pressure [Right Arm] Blood Pressure Mean 89 Blood Pressure Mean [Right Arm] Pulse Oximetry 92 93 95 Oxygen Delivery Method Oxygen Flow Rate 07/29/18 18:40 07/29/18 18:50 07/29/18 19:00 Temperature Temperature Source Sepsis Recent Fever Within 48 Hours Sepsis New/Unexplained Change in Mental Status Sepsis Action Taken by Nursing Pulse Rate 103 H 103 H Pulse Rate [Finger] Pulse Rate from SpO2 Sensor 106 H 103 H 101 H Respiratory Rate 21 24 Respiratory Effort / Characteristics Respiratory Depth Blood Pressure Blood Pressure [Right Arm] Blood Pressure Mean Blood Pressure Mean [Right Arm] Pulse Oximetry 95 93 91 Oxygen Delivery Method Oxygen Flow Rate 07/29/18 19:01 07/29/18 19:10 07/29/18 19:20 Temperature Temperature Source Sepsis Recent Fever Within 48 Hours Sepsis New/Unexplained Change in Mental Status Sepsis Action Taken by Nursing Pulse Rate 102 H 101 H 100 H Pulse Rate [Finger] Pulse Rate from SpO2 Sensor 101 H 101 H 101 H Respiratory Rate 17 Respiratory Effort / Characteristics Respiratory Depth Blood Pressure 121/67 Blood Pressure [Right Arm] Blood Pressure Mean 85 Blood Pressure Mean [Right Arm] Pulse Oximetry 93 94 93 Oxygen Delivery Method Oxygen Flow Rate 07/29/18 19:30 07/29/18 19:31 07/29/18 19:40 Temperature Temperature Source Sepsis Recent Fever Within 48 Hours Sepsis New/Unexplained Change in Mental Status Sepsis Action Taken by Nursing Pulse Rate 101 H 99 H 101 H Pulse Rate [Finger] Pulse Rate from SpO2 Sensor 100 H 100 H 103 H Respiratory Rate 15 Respiratory Effort / Characteristics Respiratory Depth Blood Pressure 137/78 Blood Pressure [Right Arm] Blood Pressure Mean 97 Blood Pressure Mean [Right Arm] Pulse Oximetry 93 94 94 Oxygen Delivery Method Oxygen Flow Rate 07/29/18 19:50 07/29/18 19:58 07/29/18 20:00 Temperature Temperature Source Sepsis Recent Fever Within 48 Hours Sepsis New/Unexplained Change in Mental Status Sepsis Action Taken by Nursing Pulse Rate 101 H 100 H Pulse Rate [Finger] 99 H Pulse Rate from SpO2 Sensor 101 H 102 H Respiratory Rate 13 18 16 Respiratory Effort / Characteristics Respiratory Depth Blood Pressure Blood Pressure [Right Arm] 137/88 Blood Pressure Mean Blood Pressure Mean [Right Arm] 104 Pulse Oximetry 96 99 95 Oxygen Delivery Method Nasal Cannula Oxygen Flow Rate 4 07/29/18 20:02 07/29/18 20:10 07/29/18 20:20 Temperature Temperature Source Sepsis Recent Fever Within 48 Hours Sepsis New/Unexplained Change in Mental Status Sepsis Action Taken by Nursing Pulse Rate 99 H 102 H 101 H Pulse Rate [Finger] Pulse Rate from SpO2 Sensor 100 H 102 H 101 H Respiratory Rate 19 21 23 Respiratory Effort / Characteristics Respiratory Depth Blood Pressure 124/62 Blood Pressure [Right Arm] Blood Pressure Mean 82 Blood Pressure Mean [Right Arm] Pulse Oximetry 97 96 96 Oxygen Delivery Method Oxygen Flow Rate 07/29/18 20:30 07/29/18 20:31 07/29/18 20:40 Temperature Temperature Source Sepsis Recent Fever Within 48 Hours Sepsis New/Unexplained Change in Mental Status Sepsis Action Taken by Nursing Pulse Rate 101 H 106 H 100 H Pulse Rate [Finger] Pulse Rate from SpO2 Sensor 102 H 105 H 100 H Respiratory Rate 14 18 35 H Respiratory Effort / Characteristics Respiratory Depth Blood Pressure 134/84 Blood Pressure [Right Arm] Blood Pressure Mean 100 Blood Pressure Mean [Right Arm] Pulse Oximetry 97 96 96 Oxygen Delivery Method Oxygen Flow Rate 07/29/18 20:50 Temperature Temperature Source Sepsis Recent Fever Within 48 Hours Sepsis New/Unexplained Change in Mental Status Sepsis Action Taken by Nursing Pulse Rate 99 H Pulse Rate [Finger] Pulse Rate from SpO2 Sensor 99 H Respiratory Rate 16 Respiratory Effort / Characteristics Respiratory Depth Blood Pressure Blood Pressure [Right Arm] Blood Pressure Mean Blood Pressure Mean [Right Arm] Pulse Oximetry 96 Oxygen Delivery Method Oxygen Flow Rate GENERAL: Awake, alert, uncomfortable appearing HENT: Normocephalic, atraumatic. TM's normal. Oropharynx unremarkable. EYES: PERRL. EOMI. Normal conjunctiva. Sclera non-icteric. NECK: Supple. No nuchal rigidity. FROM. No JVD or bruit. RESPIRATORY: Mildly dyspneic, scattered wheezes and rhonchi present. CARDIAC: RRR. ABDOMEN: Soft, non distended. No tenderness to palpation. No rebound or guarding. No masses. RECTAL: Deferred. MUSCULOSKELETAL: Unremarkable. No edema. No discoloration. Gross motor strength symmetric. NEURO: Normal sensorium. No sensory or motor deficits noted. SKIN: No rash or jaundice noted. LYMPH: No adenopathy Course 164: The patient was evaluated in room B7. A complete history and physical exam was performed. 1902: I re-checked the patient and updated him on his test results. 1907: I reviewed the patient's case with Dr. Chong Redd, [facility] Hospitalist. He will evaluate the patient for further management. Consultations Consultation #1: I reviewed the patient's case with Dr. Chong Redd, [facility] Hospitalist. He will evaluate the patient for further management. Time: 19:08 Administered Medications Heparin Sodium (Porcine) (Heparin Sodium (Porcine)) 5,000 units SQ Q12 CARA Stop: 08/28/18 22:11 Last Admin: 07/29/18 23:38 Dose: 5,000 units Documented by: [id number] Cosigned by: [id number] Insulin Aspart (Novolog Flexpen) 0 units SC ACHS CARA Stop: 08/28/18 22:11 Last Admin: 07/29/18 23:28 Dose: 5 units Documented by: [id number] Cosigned by: [id number] Rosuvastatin Calcium (Crestor) 40 mg PO QPM CARA Stop: 08/28/18 22:11 Last Admin: 07/29/18 23:24 Dose: Not Given Documented by: [id number] Discontinued Medications Albuterol (Duoneb) 3 ml NEB NOW STA Stop: 07/29/18 16:55 Last Admin: 07/29/18 17:17 Dose: 3 ml Documented by: [id number] Doxycycline Hyclate 100 mg/ (Dextrose) 110 mls @ 50 mls/hr IV NOW STA Stop: 07/29/18 18:57 Last Infusion: 07/29/18 22:29 Dose: 510 mls/hr Documented by: [id number] Admin: 07/29/18 18:07 Dose: 50 mls/hr Documented by: [id number] Cefepime HCl (Maxipime) 2,000 mg in 20 mls @ 5 mls/min IV NOW STA; Protocol Stop: 07/29/18 16:49 Last Admin: 07/29/18 18:02 Dose: 5 mls/min Documented by: [id number] Acetaminophen (Ofirmev) 1,000 mg in 100 mls @ 400 mls/hr IV NOW STA Stop: 07/29/18 17:08 Last Infusion: 07/29/18 17:30 Dose: 0 mls/hr Documented by: [id number] Admin: 07/29/18 17:15 Dose: 400 mls/hr Documented by: [id number] Sodium Chloride (Nss) 500 mls @ 999 mls/hr IV .Q31M ONE Stop: 07/29/18 19:30 Last Infusion: 07/29/18 22:26 Dose: 999 mls/hr Documented by: [id number] Admin: 07/29/18 19:49 Dose: 999 mls/hr Documented by: [id number] Potassium Phosphate 9 mmol/ (Sodium Chloride) 253 mls @ 88 mls/hr IV ONE ONE Stop: 07/29/18 22:07 Last Infusion: 07/29/18 23:57 Dose: 0 mls/hr Documented by: [id number] Infusion: 07/29/18 22:26 Dose: 88 mls/hr Documented by: [id number] Admin: 07/29/18 19:49 Dose: 88 mls/hr Documented by: [id number] Methylprednisolone (Solumedrol) 125 mg IV NOW STA Stop: 07/29/18 16:55 Last Admin: 07/29/18 18:08 Dose: Not Given Documented by: [id number] Potassium Phosphate (Potassium Phosphate Replace) 9 mmol IV NOW STA Stop: 07/29/18 19:01 Last Admin: 07/29/18 20:00 Dose: Not Given Documented by: [id number] Medical Decision Making Differential Diagnosis Differential diagnosis includes: infections, reactive airway disease, pneumonia, pneumothorax, COPD, CHF, cardiac ischemia, pulmonary embolism, musculoskeletal, gastrointestinal, as well as others were entertained. Medical Records Attestation: I reviewed the patient's medical records. Home Medications Current Medication List: was personally reviewed by me Laboratory Data Attestation: I reviewed the patient's lab results. Result diagrams: 07/29/18 17:46 07/29/18 17:46 Lab Results 07/29/18 07/29/18 07/29/18 Range/Units 17:46 17:46 17:46 WBC 11.46 H (4.8-10.8) K/uL RBC 3.76 L (4.7-6.1) M/uL Hgb 11.8 L (14.0-18.0) g/dL Hct 36.3 L (42-52) % MCV 96.5 (80-100) fL MCH 31.4 (25-34) pg MCHC 32.5 (32-36) g/dL RDW Std Deviation 50.0 H (36.4-46.3) fL RDW Coeff of Bessie 14.1 (11.5-14.5) % Plt Count 148 (130-400) K/uL MPV 11.1 H (7.4-10.4) fL Immature Gran % (Auto) 0.3 % Neut % (Auto) 83.7 % Lymph % (Auto) 8.4 % [place] % (Auto) 6.7 % Eos % (Auto) 0.7 % Baso % (Auto) 0.2 % Immature Gran # (Auto) 0.03 H (0.00-0.02) K/uL Neut # (Auto) 9.60 H (1.4-6.5) K/uL Lymph # (Auto) 0.96 L (1.2-3.4) K/uL [place] # (Auto) 0.77 H (0.11-0.59) K/uL Eos # (Auto) 0.08 (0-0.5) K/uL Baso # (Auto) 0.02 (0-0.2) K/uL PT 11.5 (9.0-12.0) Seconds INR 1.1 (0.9-1.1) Sodium 137 (136-145) mmol/L Potassium 4.1 (3.5-5.1) mmol/L Chloride 106 (98-107) mmol/L Carbon Dioxide 26 (21-32) mmol/L Anion Gap 5.0 (3-11) BUN 17 (7-18) mg/dl Creatinine 0.88 (0.6-1.4) mg/dl Est Cr Clr Drug Dosing 95.3 ml/min Est GFR ( Amer) 99.5 Est GFR (Non-Af Amer) 85.8 BUN/Creatinine Ratio 18.9 (10-20) Glucose 131 H (70-99) mg/dl Lactate (0.4-2.0) mmol/L Calcium 8.7 (8.5-10.1) mg/dl Phosphorus 1.5 L* (2.5-4.9) mg/dl Magnesium 2.0 (1.8-2.4) mg/dl Total Bilirubin 1.3 H (0.2-1) mg/dl AST 41 H (15-37) U/L ALT 26 (12-78) U/L Alkaline Phosphatase 69 (45-117) U/L Troponin I < 0.015 (0-0.045) ng/ml NT-Pro-B Natriuret Pep 67 (0-900) pg/ml Total Protein 7.9 (6.4-8.2) gm/dl Albumin 3.2 L (3.4-5.0) gm/dl Globulin 4.7 H (2.5-4.0) gm/dl Albumin/Globulin Ratio 0.7 L (0.9-2) Lipase 143 (73-393) U/L 07/29/18 Range/Units 17:47 WBC (4.8-10.8) K/uL RBC (4.7-6.1) M/uL Hgb (14.0-18.0) g/dL Hct (42-52) % MCV (80-100) fL MCH (25-34) pg MCHC (32-36) g/dL RDW Std Deviation (36.4-46.3) fL RDW Coeff of Bessie (11.5-14.5) % Plt Count (130-400) K/uL MPV (7.4-10.4) fL Immature Gran % (Auto) % Neut % (Auto) % Lymph % (Auto) % [place] % (Auto) % Eos % (Auto) % Baso % (Auto) % Immature Gran # (Auto) (0.00-0.02) K/uL Neut # (Auto) (1.4-6.5) K/uL Lymph # (Auto) (1.2-3.4) K/uL [place] # (Auto) (0.11-0.59) K/uL Eos # (Auto) (0-0.5) K/uL Baso # (Auto) (0-0.2) K/uL PT (9.0-12.0) Seconds INR (0.9-1.1) Sodium (136-145) mmol/L Potassium (3.5-5.1) mmol/L Chloride (98-107) mmol/L Carbon Dioxide (21-32) mmol/L Anion Gap (3-11) BUN (7-18) mg/dl Creatinine (0.6-1.4) mg/dl Est Cr Clr Drug Dosing ml/min Est GFR ( Amer) Est GFR (Non-Af Amer) BUN/Creatinine Ratio (10-20) Glucose (70-99) mg/dl Lactate 1.9 (0.4-2.0) mmol/L Calcium (8.5-10.1) mg/dl Phosphorus (2.5-4.9) mg/dl Magnesium (1.8-2.4) mg/dl Total Bilirubin (0.2-1) mg/dl AST (15-37) U/L ALT (12-78) U/L Alkaline Phosphatase (45-117) U/L Troponin I (0-0.045) ng/ml NT-Pro-B Natriuret Pep (0-900) pg/ml Total Protein (6.4-8.2) gm/dl Albumin (3.4-5.0) gm/dl Globulin (2.5-4.0) gm/dl Albumin/Globulin Ratio (0.9-2) Lipase (73-393) U/L Imaging Data Radiologist's Impression: Radiology results as stated below per my review and the radiologist's interpretation: XR chest 1V portable CLINICAL HISTORY: Chest Pain dyspnea COMPARISON STUDY: 04/18/2018 FINDINGS: Slightly progressive diffuse left hemithoracic interstitial change. Moderate stable cardiomegaly. Diaphragms are smooth. Mild chronic elevation right hemidiaphragm. IMPRESSION: Chronic interstitial change. Stable cardiomegaly. No acute process. The above report was generated using voice recognition software. It may contain grammatical, syntax or spelling errors. Electronically signed by: Cirilo Gonzalez M.D. 07/29/2018 4:49 PM ECG Data Indication: SOB/dyspnea Rate (beats per minute): 114 Rhythm: sinus tachycardia Findings: + other (normal axis); no acute ischemic change Blood Pressure Blood Pressure Findings: Normal blood pressure Blood Pressure Disposition: did not require urgent referral MDM Narrative The patient is a pleasant 73 y/o gentleman with a pmhx of interstitial lung disease, pulmonary HTN, who presents to the emergency department with worsening cough, congestion and SOB per HPI. On arrival the patient is ill-appearing in NAD, febrile to 39.1, HR 110s and otherwise VSS. Patient is mildly dyspneic with mild WOB. Lungs with scattered wheezes and rhonchi. EKG without overt acute ischemia. CXR with chronic interstial thickening. WBC 11.4. H/H similar to prior range of values. Platelets wnl. Chemistry without acidosis. Lactate 1.9. Phosphorus 1.5 with repletion provided. Troponin negative and BNP wnl. UA with >30 epitheleal cells and no bacteria. Patient treated empirically with Cefepime and Doxycycline for PNA given patient's SIRS criteria on arrival. Upon re- evaluation patient is feeling improved though still SOB from his baseline. Given patient's underlying lung disease in the setting fevers and leukocytosis reasonable to admit the patient for continued management of bronchitis/pna. Case was discussed with Dr. Redd, [facility] hospitalist, who will evaluate the patient for admission. Impression & Plan PNA (pneumonia), ILD (interstitial lung disease) Critical Care Time I have personally spent greater than 35 minutes of critical care time in the direct management of this patient. This includes bedside care, interpretation of diagnostic studies, and testing, discussion with consultants, patient, and family members, and other required patient management activities. This 35 minutes is in excess of all separately billable procedures. Critical Care Time: Yes Total Critical Care Time: 35 Discharge Plan Visit Data *Final* Discharge Date/Time: 07/29/18 21:49 Chief Complaint: Shortness of Breath/Dyspnea Stated Complaint: SOB ED Provider: Sandip Morse Discharge Problem: PNA (pneumonia), ILD (interstitial lung disease) Patient Disposition: Admitted As Inpatient Discharge Instructions Interventions: ED Discharge Assessment Last Done: 07/29/18 21:49 Discharge Problem: PNA (pneumonia) Qualifiers: Pneumonia type: due to unspecified organism Laterality: bilateral Lung location: unspecified part of lung Qualified Code(s): J18.9 - Pneumonia, unspecified organism The scribe's documentation has been prepared under my direction and personally reviewed by me in its entirety. I confirm that the note above accurately reflects all work, treatment, procedures, and medical decision making performed by me.
--- NOTE | 2018-07-29 20:59 | History & Physical Report ---
Date of Service July 29, 2018 Assessment & Plan (1) COPD exacerbation: COPD exacerbation/bronchitis/history of pneumonia/hypoxia- Cefepime 1 g IV every 8 hours. Azithromycin 500 mg IV daily Guaifenesin extended release 600 mg p.o. every 12 hours. Pulmicort Respules 0.5 mg inhaled twice daily. Duonebs every 4 hours while awake and every 2 hours when necessary. Simethicone 80 mg p.o. every 6 hours while awake Sputum Gram stain and culture Present on Admission?: Yes (2) PNA (pneumonia): As above Present on Admission?: Yes (3) Bronchitis: As above Present on Admission?: Yes (4) Diabetes mellitus: Hold semaglutide and metformin. Placed on Accu-Cheks before meals and at bedtime with NovoLog coverage per scale. Present on Admission?: Yes (5) Hyperlipidemia: Continue rosuvastatin 40 mg every evening Present on Admission?: Yes (6) Vitamin B12 deficiency: Continue vitamin B12 supplement 1000 mcg every morning Present on Admission?: Yes (7) Hypertension: Continue lisinopril 5 mg daily Present on Admission?: Yes History of Present Illness Chief Complaint: The patient presents to the emergency department with complaint of a cough productive of green sputum and shortness of breath. Primary Care Provider: Greer Monroe MD The patient is a 73-year-old male who presents to the emergency department with 3 days of worsening cough productive of green sputum and shortness of breath, similar to previous episodes of bronchitis in the past. He became very fatigued and weak yesterday, and had difficulty walking. Allergies Allergy/AdvReac Type Severity Reaction Status Date / Time Penicillins Allergy Mild Rash Verified 07/29/18 17:09 citalopram Allergy Unknown joint pain Verified 07/29/18 17:09 gabapentin Allergy Unknown joint pain Verified 07/29/18 17:09 Iodinated Contrast- Oral and Allergy Unknown Hives Verified 07/29/18 17:09 IV Dye Fwvehtv-Rxq-Jby Reductase AdvReac Unknown SEVERE Verified 07/29/18 17:31 Inhibitor MUSCLE ACHES Home Medications Home Medications Medication Instructions Recorded Confirmed Type albuterol sulfate [Ventolin HFA] 2 puff INHALATION Q6H PRN 07/29/18 07/29/18 History ascorbic acid (vitamin C) 500 mg PO QAM 07/29/18 07/29/18 History aspirin 81 mg PO QAM 07/29/18 07/29/18 History budesonide-formoterol 2 puff INHALATION BID 07/29/18 07/29/18 History cholecalciferol (vitamin D3) 2,000 unit PO QAM 07/29/18 07/29/18 History [Vitamin D3] cyanocobalamin (vitamin B-12) 1,000 mcg PO QAM 07/29/18 07/29/18 History [Vitamin B-12] ferrous sulfate 325 mg PO QAM 07/29/18 07/29/18 History ipratropium-albuterol 3 ml INHALATION QID PRN 07/29/18 07/29/18 History lisinopril 5 mg PO QAM 07/29/18 07/29/18 History loratadine 10 mg PO QAM 07/29/18 07/29/18 History metformin 1,000 mg PO BID 07/29/18 07/29/18 History rosuvastatin 40 mg PO QPM 07/29/18 07/29/18 History semaglutide 0.5 mg SUBCUT WK 07/29/18 07/29/18 History Past Med/Surg History Medical History Neuropathy (Chronic) CHF (congestive heart failure) (Chronic) COPD (chronic obstructive pulmonary disease) (Chronic) Interstitial lung disease (Chronic) Family History Other No significant family history Social History Preferred Language: [place] Communication Ability: Effective Client Renewal Specialist Required: No Beliefs That Will Affect Care: None Current Living Situation: Spouse Feels Safe at Home: Yes Safety Concerns: Feels Safe At This Time Smoking Status: Former smoker Tobacco Type: cigarettes Hx Alcohol Use: No Hx Substance Use: No Review of Systems Review of Systems: The patient denies chest pain, palpitations, lower extremity swelling, sore throat, fevers, chills, sweats, nausea, vomiting, diarrhea , constipation, abdominal pain, pelvic pain, blood in urine or stool, dysuria, urinary frequency or urgency, lightheadedness, dizziness, headache, memory loss, loss of consciousness, rash, abnormal bruising or bleeding, imbalance, focal weakness, numbness or tingling in arms or legs, generalized arthralgias or myalgias, back or neck pain, or night sweats. The review of systems is otherwise negative other than for that already noted above, and at least 10 systems have been reviewed. Physical Exam Physical Exam: The patient is awake, alert and oriented �3, normocephalic and atraumatic, lying in bed and in no acute distress. HEENT--PERRL, EOMI, mucous membranes and oropharynx dry. Neck--supple. No JVD. No bruits. Thyroid normal, trachea midline, no adenopathy. Heart--normal S1 and S2. No murmurs, rubs or gallops. Lungs--coarse rhonchi with wheezes bilaterally. No respiratory distress, no accessory muscle use. Abdomen--normal bowel sounds and soft. Nontender. Nondistended, no hernias or masses, no organomegaly. Extremities--no cyanosis or clubbing. No edema. There are good distal pulses b/l. Dermatologic--normal skin turgor, normal color, no abnormal lymph nodes, no rash. Neurologic--cranial nerves II through XII grossly intact. Rheumatologic--normal range of motion. Psychiatric--normal affect. Results & Data Vital Signs (Past 12 Hours) Vital Signs Temp Pulse Pulse Resp BP BP Pulse Ox 07/29/18 19:58 99 H 18 137/88 99 07/29/18 17:48 116 H 24 138/68 93 07/29/18 17:19 113 H 22 95 07/29/18 16:28 95 07/29/18 16:18 102.4 F H 115 H 20 130/82 95 Laboratory Results Laboratory Results WBC 11.46 K/uL (4.8-10.8) H 07/29/18 17:46 RBC 3.76 M/uL (4.7-6.1) L 07/29/18 17:46 Hgb 11.8 g/dL (14.0-18.0) L 07/29/18 17:46 Hct 36.3 % (42-52) L 07/29/18 17:46 MCV 96.5 fL (80-100) 07/29/18 17:46 MCH 31.4 pg (25-34) 07/29/18 17:46 MCHC 32.5 g/dL (32-36) 07/29/18 17:46 RDW Std Deviation 50.0 fL (36.4-46.3) H 07/29/18 17:46 RDW Coeff of Bessie 14.1 % (11.5-14.5) 07/29/18 17:46 Plt Count 148 K/uL (130-400) 07/29/18 17:46 MPV 11.1 fL (7.4-10.4) H 07/29/18 17:46 Immature Gran % (Auto) 0.3 % 07/29/18 17:46 Neut % (Auto) 83.7 % 07/29/18 17:46 Lymph % (Auto) 8.4 % 07/29/18 17:46 [place] % (Auto) 6.7 % 07/29/18 17:46 Eos % (Auto) 0.7 % 07/29/18 17:46 Baso % (Auto) 0.2 % 07/29/18 17:46 Immature Gran # (Auto) 0.03 K/uL (0.00-0.02) H 07/29/18 17:46 Neut # (Auto) 9.60 K/uL (1.4-6.5) H 07/29/18 17:46 Lymph # (Auto) 0.96 K/uL (1.2-3.4) L 07/29/18 17:46 [place] # (Auto) 0.77 K/uL (0.11-0.59) H 07/29/18 17:46 Eos # (Auto) 0.08 K/uL (0-0.5) 07/29/18 17:46 Baso # (Auto) 0.02 K/uL (0-0.2) 07/29/18 17:46 PT 11.5 Seconds (9.0-12.0) 07/29/18 17:46 INR 1.1 (0.9-1.1) 07/29/18 17:46 Sodium 137 mmol/L (136-145) 07/29/18 17:46 Potassium 4.1 mmol/L (3.5-5.1) 07/29/18 17:46 Chloride 106 mmol/L (98-107) 07/29/18 17:46 Carbon Dioxide 26 mmol/L (21-32) 07/29/18 17:46 5.0 (3-11) 07/29/18 17:46 BUN 17 mg/dl (7-18) 07/29/18 17:46 0.88 mg/dl (0.6-1.4) 07/29/18 17:46 Est Cr Clr Drug Dosing 95.3 ml/min 07/29/18 17:46 Est GFR ( Amer) 99.5 07/29/18 17:46 Est GFR (Non-Af Amer) 85.8 07/29/18 17:46 18.9 (10-20) 07/29/18 17:46 Glucose 131 mg/dl (70-99) H 07/29/18 17:46 POC Glucose 272 (70-99) H 07/29/18 23:16 1.9 mmol/L (0.4-2.0) 07/29/18 17:47 Calcium 8.7 mg/dl (8.5-10.1) 07/29/18 17:46 Phosphorus 1.5 mg/dl (2.5-4.9) L* 07/29/18 17:46 Magnesium 2.0 mg/dl (1.8-2.4) 07/29/18 17:46 1.3 mg/dl (0.2-1) H 07/29/18 17:46 AST 41 U/L (15-37) H 07/29/18 17:46 ALT 26 U/L (12-78) 07/29/18 17:46 69 U/L (45-117) 07/29/18 17:46 < 0.015 ng/ml (0-0.045) 07/29/18 17:46 NT-Pro-B Natriuret Pep 67 pg/ml (0-900) 07/29/18 17:46 7.9 gm/dl (6.4-8.2) 07/29/18 17:46 3.2 gm/dl (3.4-5.0) L 07/29/18 17:46 4.7 gm/dl (2.5-4.0) H 07/29/18 17:46 0.7 (0.9-2) L 07/29/18 17:46 143 U/L (73-393) 07/29/18 17:46 Yellow 07/29/18 Unknown Clear (Clear) 07/29/18 Unknown 6.5 (4.5-7.5) 07/29/18 Unknown Ur Specific [place] 1.014 (1.000-1.030) 07/29/18 Unknown Negative (Negative) 07/29/18 Unknown Negative (Negative) 07/29/18 Unknown Negative (Negative) 07/29/18 Unknown Negative (Negative) 07/29/18 Unknown Negative (Negative) 07/29/18 Unknown Negative (Negative) 07/29/18 Unknown Negative (Negative) 07/29/18 Unknown Ur Leukocyte Esterase Trace (Negative) H 07/29/18 Unknown 10-30 /hpf (0-5) H 07/29/18 Unknown 0-4 /hpf (0-4) 07/29/18 Unknown U Hyaline Cast (Auto) 1-5 /lpf (0-5) 07/29/18 Unknown U Epithel Cells (Auto) >30 /lpf (0-5) H 07/29/18 Unknown Negative (Negative) 07/29/18 Unknown Ur Renal Epithelial Cell Not Reportable 07/29/18 Unknown Diagnostic Findings [place], [place] [phone] XRay Report Patient: JENNIFER MOORE LAdmit Date: 07/29/18 MR#: [id number]: [address] Acct ID:[id number]: Date: 1945[facility] Zip: [place] [address] Age: 73Location: ED Sex: M Room/Bed: Att Phy: Diagnosis: SOB Serena Phy: Greer Monroe MDService Date: 07/29/18 Fam Phy: Interpreting Phy: Cirilo Gonzalez MD Admit Phy: Ordering Phy: Sandip Morse M.D. cc: ~ XR chest 1V portable CLINICAL HISTORY: Chest Pain dyspnea COMPARISON STUDY: 04/18/2018 FINDINGS: Slightly progressive diffuse left hemithoracic interstitial change. Moderate stable cardiomegaly. Diaphragms are smooth. Mild chronic elevation right hemidiaphragm. IMPRESSION: Chronic interstitial change. Stable cardiomegaly. No acute process. The above report was generated using voice recognition software. It may contain grammatical, syntax or spelling errors. Electronically signed by: Cirilo Gonzalez M.D. 07/29/2018 4:49 PM Dictated: 07/29/188 Transcribed: 07/29/181647 Code Status & VTE Plan Code Status Full code VTE Prophylaxis Plan VTE Prophylaxis will be ordered: Yes (1) PNA (pneumonia) Laterality: bilateral Lung location: unspecified part of lung Pneumonia type: due to unspecified organism Qualified Code(s): J18.9 - Pneumonia, unspecified organism
[2018-07-29] MEDS ORDERED: DEXTROSE 50% 50 ML SYRINGE IV PRN (22:12)
[2018-07-29] MEDS ORDERED: GLUCAGON FOR INJ 1 MG VIAL SQ PRN (22:12)
[2018-07-29] MEDS ORDERED: MAGNESIUM HYDROXIDE SUSP 30 ML UDC PO PRN (22:12)
[2018-07-29] MEDS ORDERED: GLUCOSE 10 TABS/TUBE PO PRN (22:12)
[2018-07-29] MEDS ORDERED: CARBOHYDRATES FOR HYPOGLYCEMIA PO PRN (22:12)
[2018-07-29] MEDS ORDERED: ACETAMINOPHEN 325 MG TAB PO PRN (22:12)
[2018-07-29] MEDS ORDERED: GLUCOSE 40% GEL 15 GM TUBE PO PRN (22:12)
[2018-07-29] MEDS ORDERED: POLYETHYLENE (MIRALAX) 17 GM PACK PO PRN (22:12)
[2018-07-29] MEDS ORDERED: NITROGLYCERIN SL 0.4 MG/TAB TAB SL PRN (22:12)
[2018-07-29] MEDS ORDERED: ALUMINUM/MAGNESIUM SUSP 30 ML UDC PO PRN (22:12)
[2018-07-29] MEDS: ROSUVASTATIN CALCIUM 20 MG TAB PO SCH (23:24)
[2018-07-29] MEDS: INSULIN ASPART 100 UNITS/ML 3 ML PEN SC SCH (23:28)
[2018-07-29] MEDS: HEPARIN SOD 5,000 UNIT/0.5 ML VIAL SQ SCH (23:38)
[2018-07-30] MEDS: CEFEPIME 1,000 MG in SYRINGE 0 ML IV SCH ×3 (05:33→20:43)
[2018-07-30] MEDS: ALBUT/IPRATROP 3MG/0.5MG NEB 3 ML VIAL NEB SCH ×4 (07:19→19:53)
[2018-07-30] MEDS: BUDESONIDE 0.5 MG/2 ML VIAL (PULMICORT) NEB SCH ×2 (07:34→19:53)
--- NOTE | 2018-07-30 08:05 | Hospitalist Progress Note ---
Date of Service July 30, 2018 Assessment & Plan (1) COPD exacerbation: COPD exacerbation/bronchitis/history of pneumonia/hypoxia- Cefepime 1 g IV every 8 hours. Azithromycin 500 mg IV daily Guaifenesin extended release 600 mg p.o. every 12 hours. Pulmicort Respules 0.5 mg inhaled twice daily. Duonebs every 4 hours while awake and every 2 hours when necessary. Simethicone 80 mg p.o. every 6 hours while awake Sputum Gram stain and culture (2) PNA (pneumonia): As above (3) Bronchitis: As above (4) Diabetes mellitus: Hold semaglutide and metformin. Placed on Accu-Cheks before meals and at bedtime with NovoLog coverage per scale. (5) Hyperlipidemia: Continue rosuvastatin 40 mg every evening (6) Vitamin B12 deficiency: Continue vitamin B12 supplement 1000 mcg every morning (7) Hypertension: Continue lisinopril 5 mg daily Results & Data Vital Signs (Past 12 Hours) Vital Signs Temp Pulse Pulse Resp BP BP Pulse Ox 07/30/18 07:21 36.5 C 106 H 18 134/75 93 07/30/18 07:20 94 H 20 97 07/30/18 04:00 36.7 C 97 H 20 106/55 L 97 07/30/18 02:11 07/30/18 00:00 110 H 07/29/18 23:20 36.6 C 100 H 20 111/59 L 96 07/29/18 21:39 99 H 18 132/88 97 07/29/18 21:36 36.6 C 97 H 16 132/82 97 07/29/18 21:31 97 H 24 132/82 97 07/29/18 21:30 98 H 32 H 96 07/29/18 21:20 96 07/29/18 21:10 104 H 97 07/29/18 21:01 100 H 11 L 129/65 97 07/29/18 21:00 98 H 20 96 07/29/18 20:50 99 H 16 96 07/29/18 20:40 100 H 35 H 96 07/29/18 20:31 106 H 18 134/84 96 07/29/18 20:30 101 H 14 97 07/29/18 20:20 101 H 23 96 07/29/18 20:10 102 H 21 96 Pulse Ox 07/30/18 07:21 07/30/18 07:20 07/30/18 04:00 07/30/18 02:11 97 07/30/18 00:00 07/29/18 23:20 07/29/18 21:39 07/29/18 21:36 07/29/18 21:31 07/29/18 21:30 07/29/18 21:20 07/29/18 21:10 07/29/18 21:01 07/29/18 21:00 07/29/18 20:50 07/29/18 20:40 07/29/18 20:31 07/29/18 20:30 07/29/18 20:20 07/29/18 20:10 (1) PNA (pneumonia) Laterality: bilateral Lung location: unspecified part of lung Pneumonia type: due to unspecified organism Qualified Code(s): J18.9 - Pneumonia, unspecified organism
[2018-07-30] MEDS: LORATADINE 10 MG TAB PO SCH (09:20)
[2018-07-30] MEDS: INSULIN ASPART 100 UNITS/ML 3 ML PEN SC SCH ×4 (09:20→20:35)
[2018-07-30] MEDS: FERROUS SULFATE 325 MG TAB PO SCH (09:21)
[2018-07-30] MEDS: ASPIRIN 81 MG ECTAB PO SCH (09:21)
[2018-07-30] MEDS: HEPARIN SOD 5,000 UNIT/0.5 ML VIAL SQ SCH ×2 (09:21→20:35)
[2018-07-30] MEDS: CYANOCOBALAMIN 500 MCG TABLET (VITAMIN B-12) PO SCH (09:22)
[2018-07-30] MEDS: guaiFENesin 600 MG TABCR PO SCH ×2 (09:22→20:35)
[2018-07-30] MEDS: ASCORBIC ACID 500 MG TAB PO SCH (09:22)
[2018-07-30] MEDS: LISINOPRIL 5 MG TAB PO SCH (09:23)
[2018-07-30] MEDS: CHOLECALCIFEROL 1,000 UNITS TAB PO SCH (09:23)
[2018-07-30] MEDS: AZITHROMYCIN 500 MG in DEXTROSE 5% 250 ML IV SCH (09:30)
[2018-07-30 10:02] LABS: Estimated Average Glucose 126 mg/dl
--- NOTE | 2018-07-30 17:35 | Hospitalist Progress Note ---
Date of Service July 30, 2018 Assessment & Plan (1) COPD exacerbation: COPD exacerbation/bronchitis/history of interstitial lung disease chronic respiratory failure Cefepime 1 g IV every 8 hours. Azithromycin 500 mg IV daily Guaifenesin extended release 600 mg p.o. every 12 hours. Pulmicort Respules 0.5 mg inhaled twice daily. Duonebs every 4 hours while awake and every 2 hours when necessary. Simethicone 80 mg p.o. every 6 hours while awake (2) PNA (pneumonia): As above (3) Bronchitis: As above (4) Diabetes mellitus: Continue to hold semaglutide and metformin. Placed on Accu-Cheks before meals and at bedtime with NovoLog coverage per scale. (5) Hyperlipidemia: Continue on rosuvastatin 40 mg every evening (6) Vitamin B12 deficiency: Continue vitamin B12 supplement 1000 mcg every morning (7) Hypertension: Controlled with lisinopril 5 mg daily Subjective Patient states he feels improved although is very dyspneic even moving about in his bed. His cough is less but still with production of green sputum. Review of Systems Review of Systems: ROS: well nourished well developed. No double vision blurry vision No problems with speech or swallowing No palpitations, chest pain or pressure Shortness of breath coughing and some increased work of breathing No abdominal pain nausea vomiting diarrhea changes in appetite or weight No burning urine urine frequency or changes in color No focal joint pain or muscle pain No skin rashes or oral lesions No unusual bruising or bleeding No focused back pain or numbness or loss of strength No changes in memory or confusion Physical Exam Physical Exam: The patient appeared well nourished and normally developed. Vital signs as documented. Head exam is unremarkable. normocephalic, atraumatic Neck is without jugular venous distension, thyromegaly, or lymphademopathy Lungs are bibasilar rhonchi with some crackles expiratory wheezing and prolonged expiratory phase Cardiac exam reveals Rhythm is regular. Systolic ejection murmurs heard Abdominal exam reveals normal bowel sounds, no masses, no organomegaly Extremities are nonedematous and both pedal pulses are present Neurologic exam is A&Ox3, no focal deficits, strength is equal bilateral Psychologically seems neither anxious or depressed Skin is warm Dry without bruises or lesions Results & Data Vital Signs (Past 12 Hours) Vital Signs Temp Pulse Resp BP Pulse Ox 07/30/18 14:58 93 H 18 96 07/30/18 14:32 36.9 C 90 18 144/77 H 94 07/30/18 11:32 36.8 C 107 H 18 133/73 97 07/30/18 11:10 92 H 20 97 07/30/18 07:21 36.5 C 106 H 18 134/75 93 07/30/18 07:20 94 H 20 97 (1) PNA (pneumonia) Laterality: bilateral Lung location: unspecified part of lung Pneumonia type: due to unspecified organism Qualified Code(s): J18.9 - Pneumonia, unspecified organism
[2018-07-30] MEDS: ROSUVASTATIN CALCIUM 20 MG TAB PO SCH (20:34)
[2018-07-31] MEDS: CEFEPIME 1,000 MG in SYRINGE 0 ML IV SCH (06:20)
[2018-07-31] MEDS: ALBUT/IPRATROP 3MG/0.5MG NEB 3 ML VIAL NEB SCH ×2 (07:12→11:25)
[2018-07-31] MEDS: BUDESONIDE 0.5 MG/2 ML VIAL (PULMICORT) NEB SCH (07:12)
[2018-07-31] MEDS: INSULIN ASPART 100 UNITS/ML 3 ML PEN SC SCH ×2 (09:59→13:36)
[2018-07-31] MEDS: LORATADINE 10 MG TAB PO SCH (10:01)
[2018-07-31] MEDS: ASPIRIN 81 MG ECTAB PO SCH (10:01)
[2018-07-31] MEDS: CYANOCOBALAMIN 500 MCG TABLET (VITAMIN B-12) PO SCH (10:02)
[2018-07-31] MEDS: guaiFENesin 600 MG TABCR PO SCH (10:02)
[2018-07-31] MEDS: FERROUS SULFATE 325 MG TAB PO SCH (10:02)
[2018-07-31] MEDS: CHOLECALCIFEROL 1,000 UNITS TAB PO SCH (10:03)
[2018-07-31] MEDS: ASCORBIC ACID 500 MG TAB PO SCH (10:03)
[2018-07-31] MEDS: LISINOPRIL 5 MG TAB PO SCH (10:04)
[2018-07-31] MEDS: AZITHROMYCIN 500 MG in DEXTROSE 5% 250 ML IV SCH (10:04)
[2018-07-31] MEDS: HEPARIN SOD 5,000 UNIT/0.5 ML VIAL SQ SCH (10:04)
--- NOTE | 2018-07-31 19:40 | Discharge Summary ---
Date of Service July 31, 2018 Admission HPI Per Admitting Provider The patient is a 73-year-old male who presents to the emergency department with 3 days of worsening cough productive of green sputum and shortness of breath, similar to previous episodes of bronchitis in the past. He became very fatigued and weak yesterday, and had difficulty walking. Principal Diagnosis acute on chronic respiratory failure with hypoxia and bronchitis Discharge Exam The patient appeared well nourished and normally developed. Vital signs as documented. Head exam is unremarkable. normocephalic, atraumatic Neck is without jugular venous distension, thyromegaly, or lymphademopathy Lungs are decreased breath sounds and rales bilaterally Cardiac exam reveals Rhythm is regular. First and second heart sounds normal. Abdominal exam reveals normal bowel sounds, no masses, no organomegaly Discharge Data Allergies Allergy/AdvReac Type Severity Reaction Status Date / Time Penicillins Allergy Mild Rash Verified 07/29/18 17:09 citalopram Allergy Unknown joint pain Verified 07/29/18 17:09 gabapentin Allergy Unknown joint pain Verified 07/29/18 17:09 Iodinated Contrast- Oral and Allergy Unknown Hives Verified 07/29/18 17:09 IV Dye Ykyfqqz-Uop-Tbq Reductase AdvReac Unknown SEVERE Verified 07/29/18 17:31 Inhibitor MUSCLE ACHES Consultations 07/29/18 19:03 ED Decision to Admit Stat 07/29/18 22:12 Consult Case Management - Discharge Planning Routine Hospital Course (1) COPD exacerbation: COPD exacerbation/bronchitis/history of interstitial lung disease. acutechronic respiratory failure We will go home on Cefdinir 300 twice daily Steroid tapering dose with close outpatient follow-up Return to his home medications and home oxygen. (2) PNA (pneumonia): He was ruled out by imaging the patient has bronchitis on top of chronic lung disease (3) Bronchitis: As above (4) Diabetes mellitus: Resume home semaglutide and metformin. (5) Hyperlipidemia: Continue on rosuvastatin 40 mg every evening (6) Vitamin B12 deficiency: Continue vitamin B12 supplement 1000 mcg every morning (7) Hypertension: Controlled with lisinopril 5 mg daily Total Time Total Time Spent Total Time Spent (In Minutes): greater than 30 minutes were required to prepare discharge Discharge Plan Discharge Items Patient Disposition: Home - Self-Care Reason For Visit: COPD, ILD, BRONCHITIS, HYPOXIA Discharge Diagnosis: copd flare pneumonia Discharge Goals: Decrease discomfort and Diagnostic testing Activity: Resume your previous activity Non-emergency contact: Primary Care Provider Call non-emergency contact if: you have any medication questions Follow-up/Referrals: Greer Monroe MD [Primary Care Provider] - Diet: Regular Addtl Provider Instructions: please rest and recuperate. be sure to follow up with your [facility] primary care provider with in a week. continue to wear your oxygen at home as you have been Prescriptions: New prednisone 10 mg tablet 10 mg PO UD Qty: 40 RF: 0 cefdinir 300 mg capsule 300 mg PO BID 5 Days Qty: 10 RF: 0 Continued ipratropium-albuterol 0.5 mg-3 mg(2.5 mg base)/3 mL Solution For Nebulization 3 ml INHALATION QID PRN (Reason: Shortness Of Breath) RF: 0 aspirin 81 mg Tablet,Delayed Release (Dr/Ec) 81 mg PO QAM RF: 0 cyanocobalamin (vitamin B-12) [Vitamin B-12] 500 mcg Tablet 1,000 mcg PO QAM RF: 0 ascorbic acid (vitamin C) 500 mg Tablet 500 mg PO QAM RF: 0 ferrous sulfate 325 mg (65 mg iron) Tablet 325 mg PO QAM RF: 0 metformin 1,000 mg Tablet 1,000 mg PO BID RF: 0 lisinopril 5 mg Tablet 5 mg PO QAM RF: 0 albuterol sulfate [Ventolin HFA] 90 mcg/actuation Hfa Aerosol Inhaler 2 puff INHALATION Q6H PRN (Reason: Shortness Of Breath) RF: 0 loratadine 10 mg Tablet 10 mg PO QAM RF: 0 rosuvastatin 40 mg Tablet 40 mg PO QPM RF: 0 cholecalciferol (vitamin D3) [Vitamin D3] 1,000 unit Tablet 2,000 unit PO QAM RF: 0 budesonide-formoterol 160-4.5 mcg/actuation Hfa Aerosol Inhaler 2 puff INHALATION BID RF: 0 semaglutide 0.25 mg or 0.5 mg(2 mg/1.5 mL) Pen Injector 0.5 mg SUBCUT WK RF: 0 Stand-Alone Forms: [facility]/Other Patient Handouts: Hyperglycemia Discharge Orders: Discharge Order (Routine); Ordered 07/31/18 Ordered By: Bob Oliva Admission Data Admit Date/Time: 07/29/18 20:58 Attending Provider: Bob Oliva Admit Provider: Chong Redd Primary Care Provider: Greer Monroe Other Providers: Chong Redd Service: Telemetry Medical Other Interventions: Discharge Summary Assessment (RN) Last Done: 07/31/18 13:09 DC Date/Time DO NOT enter until pt leaves facility: 07/31/18 13:53
== END 2018-07-31 13:53 | disposition home or self-care (01) | DRG 190 ==
LOC: ED 16:14 → 2W 20:58 → SUATTDRO 20:58 → 2W 21:49

== ENCOUNTER 2023-01-24 14:55 | Inpatient (IN) ==
[2023-01-24] MEDS ORDERED: ALBUT/IPRATROP 3MG/0.5MG NEB 3 ML VIAL NEB STA (15:00)
--- NOTE | 2023-01-24 15:04 | Emergency Department Note ---
Impression & Plan Hypoxia, COPD with acute exacerbation, SOB (shortness of breath) ED Provider Note NAME: JENNIFER MOORE AGE: 77 SEX: M : 1945 ARRIVES VIA: Ambulance INFORMANT: Patient ED PROVIDER(S): Milind Montelongo DO CHIEF COMPLAINT: shortness of breath HPI: Patient is a 77-year-old male with a past medical history of interstitial lung disease, COPD, CHF that presents to the ER chronically on 5 L nasal cannula for shortness of breath. Productive cough started about 3 days ago with green/brown sputum. He notes that has been worsening. Shortness of breath significantly worsened last night. He denies any chest pain currently but does admit to some intermittent chest pain with this. Denies any belly pain, nausea, vomiting or diarrhea. No dysuria, urgency, or fever. ADDITIONAL HISTORY OBTAINED: Per HPI Chronic Medical/Social Conditions Affecting Care: Per HPI PAST MEDICAL HISTORY:See Below PAST SURGICAL HISTORY:See Below FAMILY HISTORY:See Below SOCIAL HISTORY:See Below HOME MEDICATIONS:See Below ALLERGIES:See Below VITALS:See Below PHYSICAL EXAMINATION: GENERAL: Sitting up in bed, alert, ill-appearing, mild distress, dyspneic with conversation, on a nonrebreather at 10 L EYE EXAM: normal conjunctiva. PERRL and EOM's grossly intact. OROPHARYNX:mucous membranes are dry LUNGS: Diffuse wheezing bilateral. Normal chest wall mechanics HEART: no murmurs, S1 normal and S2 normal ABDOMEN: abdomen soft, non-tender, normo-active bowel sounds, no masses, no rebound or guarding. UPPER EXTREMITIES: upper extremities are grossly normal. LOWER EXTREMITIES: No pitting edema. Calves are equal bilateral NEURO EXAM: Normal sensorium, cranial nerves II-XII [grossly] intact, normal speech, no [gross] weakness of arms, no [gross] weakness of legs. [No drift. Finger to nose intact. Gross sensation intact.] MEDICAL DECISION MAKING: Patient is a 77-year-old male who presents the ER for shortness of breath. IV was established blood work was obtained. External records were reviewed. Upon arrival patient was on a nonrebreather and this was continued. Hour-long neb treatment was given in combination with steroids. Patient does have an extensive history of interstitial lung disease and COPD on chronically 5 L nasal cannula. Labs show no significant leukocytosis or anemia. BMP with LFTs bilirubin was unremarkable. Lipase was unremarkable. Influenza COVID flu and RSV was negative. Chest x-ray was not significant change from previous. Patient was monitored closely. The oxygen was slowly titrated down to nasal cannula. He was updated bedside discussed with Dr. Shaw for further evaluation management treatment from the inpatient stay. External Records Reviewed: Saw Romero Mendez on 01/08/2023 for cirrhosis from gastroenterology Consults/Care Managements Discussions: Per [facility] Triage Nursing notes reviewed. Limited review of prior medical records performed Vital Signs: reviewed and remarkable for on nonrebreather Differential diagnosis: Differential diagnoses includes but is not limited to pneumonia, bronchitis, COPD/Asthma exacerbation, pneumothorax, pulmonary embolism, congestive heart failure, acute coronary syndrome ER treatment provided: See below Diagnostics interpreted by me include EKG and cardiac monitoring as listed below: -Cardiac Monitoring: An order was placed for continuous cardiac monitoring. The monitor shows a rate of 110 with sinus rhythm. -ECG: Sinus rhythm rate of 112 T wave inversion lead III QTc 442 -Laboratory studies:Interpreted by me as stated above in MDM and shown below. Imaging studies: Xrays: As interpreted by me: Portable AP upright 1 view of the chest shows extensive bilateral patchy infiltrates not significant change from previous CTs show: none Critical Care: I have personally spent 32 minutes of critical care time in the direct management of this patient. This includes bedside care, interpretation of diagnostic studies, and testing, discussion with consultants, patient, and family members, and other required patient management activities. This 32 minutes is in excess of all separately billable procedures. Past Med/Surg History Medical History (Updated 01/11/22 @ 10:13 by Roland Alcaraz PA-C) Hypoxemia Chronic obstructive pulmonary disease Carcinoma of bladder COPD exacerbation Vitamin B12 deficiency Hyperlipidemia Hypertension Diabetes mellitus Bronchitis ILD (interstitial lung disease) PNA (pneumonia) Interstitial lung disease COPD (chronic obstructive pulmonary disease) CHF (congestive heart failure) Neuropathy Surgical History History of lithotripsy History of neck surgery History of partial cystectomy History of back surgery No pertinent past surgical history Family History Unknown Diabetes Stroke Coronary heart disease Other No significant family history Social History Smoking Status: Former smoker Tobacco Type: Cigarettes Hx Alcohol Use: No Hx Substance Use: No Preferred Language: Somali Communication Ability: Effective Control Inspector Required: No Beliefs That Will Affect Care: None marital status: Current Living Situation: Spouse How many Children do You have: 2 Feels Safe at Home: Yes Assistive Devices: Hearing Aid - Bilateral Allergies Allergies Allergy/AdvReac Type Severity Reaction Status Date / Time Penicillins Allergy Mild Rash Verified 01/24/23 15:56 citalopram Allergy Unknown joint pain Verified 01/24/23 15:56 gabapentin Allergy Unknown joint pain Verified 01/24/23 15:56 Iodinated Contrast Media Allergy Unknown Hives Verified 01/24/23 15:56 Dnqvmml-ZCF-KrH Reductase AdvReac Unknown SEVERE Verified 01/24/23 15:56 Inhibitor MUSCLE [Exwwuzu-Cwc-Zfv Reductase ACHES Inhibitor] Home Meds Home Medications Medication Instructions Recorded Confirmed ascorbic acid (vitamin C) 500 mg 500 mg PO QAM 07/29/18 01/24/23 tablet aspirin 81 mg tablet,delayed 81 mg PO QAM 07/29/18 01/24/23 release cholecalciferol (vitamin D3) 25 2,000 unit PO QAM 07/29/18 01/24/23 mcg (1,000 unit) tablet (Vitamin D3) ferrous sulfate 325 mg (65 mg 325 mg PO QAM 07/29/18 01/24/23 iron) tablet Oxygen Home #1 ea 11/20/18 01/08/23 montelukast 10 mg tablet 10 mg PO DAILY 03/11/20 01/24/23 rosuvastatin 10 mg tablet 10 mg PO .COMPLEX 03/16/21 01/24/23 metformin 1,000 mg tablet 500 mg PO BID 01/11/22 01/24/23 prednisone 10 mg tablet 15 mg PO DAILY 07/11/22 01/24/23 Results & Data (ED) Vital Signs Vital Signs - 24 hr 01/24/23 15:16 01/24/23 15:16 01/24/23 15:16 Temperature 36.7 C Temperature Source Oral Pulse Rate 108 H Pulse Rate [Apical] Pulse Rhythm [Apical] Pulse Strength [Apical] Respiratory Rate 28 H Respiratory Effort / Characteristics Labored Labored Respiratory Depth Respiratory Pattern Tachypnea Blood Pressure 138/77 Blood Pressure [Right Arm] Blood Pressure Mean 97 Blood Pressure Mean [Right Arm] Blood Pressure Position Lying Pulse Oximetry 98 98 Oxygen Delivery Method Non-rebreather Non-rebreather Non-rebreather Oxygen Flow Rate 10 10 10 Sepsis Recent Fever Within 48 Hours No Sepsis New/Unexplained Change in Mental Status No Sepsis Action Taken by Nursing Physician Notified Oxygen Flow Rate - Titration 5 Pulse Oximetry Post Tiitration 95 01/24/23 15:16 01/24/23 15:41 01/24/23 15:52 Temperature Temperature Source Pulse Rate 113 H Pulse Rate [Apical] 103 H 111 H Pulse Rhythm [Apical] Pulse Strength [Apical] Respiratory Rate 26 H 21 Respiratory Effort / Characteristics Labored Spontaneous Respiratory Depth Respiratory Pattern Blood Pressure Blood Pressure [Right Arm] 138/77 Blood Pressure Mean Blood Pressure Mean [Right Arm] 97 Blood Pressure Position Pulse Oximetry 95 9 L Oxygen Delivery Method Non-rebreather Oxygen Flow Rate 5 5 Sepsis Recent Fever Within 48 Hours Sepsis New/Unexplained Change in Mental Status Sepsis Action Taken by Nursing Oxygen Flow Rate - Titration Pulse Oximetry Post Tiitration 01/24/23 17:00 Temperature Temperature Source Pulse Rate Pulse Rate [Apical] 101 H Pulse Rhythm [Apical] Regular Pulse Strength [Apical] Normal Respiratory Rate 20 Respiratory Effort / Characteristics Non-Labored Respiratory Depth Normal Respiratory Pattern Regular Blood Pressure Blood Pressure [Right Arm] 138/72 Blood Pressure Mean Blood Pressure Mean [Right Arm] 94 Blood Pressure Position Pulse Oximetry 96 Oxygen Delivery Method Nasal Cannula Oxygen Flow Rate 5 Sepsis Recent Fever Within 48 Hours Sepsis New/Unexplained Change in Mental Status Sepsis Action Taken by Nursing Oxygen Flow Rate - Titration Pulse Oximetry Post Tiitration Laboratory Data 01/24/23 15:07 01/24/23 15:07 Lab Results 01/24/23 01/24/23 Range/Units 15:07 17:19 WBC 10.56 (4.8-10.8) K/ul RBC 3.80 L (4.70-6.10) M/uL Hgb 11.7 L (14.0-18.0) g/dl Hct 37.0 L (42.0-52.0) % MCV 97.4 (80.0-100.0) fL MCH 30.8 (25.0-34.0) pg MCHC 31.6 L (32.0-36.0) g/dL RDW Std Deviation 50.9 H (36.4-46.3) fL RDW Coeff of Bessie 14.2 (11.5-14.5) % Plt Count 224 (130-400) K/uL MPV 11.0 (9.4-12.4) fL Immature Gran % (Auto) 0.3 % Neut % (Auto) 83.9 % Lymph % (Auto) 7.7 % Baxter % (Auto) 7.5 % Eos % (Auto) 0.2 % Baso % (Auto) 0.4 % Neut # (Auto) 8.87 H (1.40-6.50) K/uL Lymph # (Auto) 0.81 L (1.20-3.40) K/uL Baxter # (Auto) 0.79 H (0.11-0.59) K/uL Eos # (Auto) 0.02 (0.00-0.50) K/uL Baso # (Auto) 0.04 (0.00-0.20) K/uL Immature Gran # (Auto) 0.03 (0.01-0.20) K/uL VBG pH 7.35 L (7.36-7.41) VBG pCO2 64 H (38-50) mmHg VBG pO2 37 mmHg VBG HCO3 35 mmol/L VBG O2 Saturation < 60.0 % VBG Base Excess 7.4 mEq/L Sodium 138 (136-145) mmol/L Potassium 4.2 (3.5-5.1) mmol/L Chloride 100 (98-107) mmol/L Carbon Dioxide 31 (21-32) mmol/L Anion Gap 7 (3-11) BUN 17 (6-23) mg/dl Creatinine 0.71 (0.6-1.4) mg/dl Est Cr Clr Drug Dosing 104.0 ml/min Est GFR ( Amer) 105.6 ml/min Est GFR (Non-Af Amer) 91.1 ml/min BUN/Creatinine Ratio 23.9 H (10-20) Glucose 274 H (70-99(Fasting)) mg/dl Calcium 9.0 (8.6-10.3) mg/dl Total Bilirubin 1.0 (0.2-1.0) mg/dl AST 17 (13-39) U/L ALT 9 (7-52) U/L Alkaline Phosphatase 50 (34-104) U/L Troponin I High Sens 7.3 (0-20) pg/ml Total Protein 7.6 (6.0-8.3) gm/dl Albumin 3.3 L (3.4-5.0) gm/dl Globulin 4.3 H (2.5-4.0) gm/dl Albumin/Globulin Ratio 0.8 L (0.9-2) Lipase 13 (11-82) U/L SARS-CoV-2 (PCR) NEGATIVE (Negative) Influenza Type A (PCR) Negative (Neg) Influenza Type B (PCR) Negative (Neg) RSV (RT-PCR) Negative (Neg) Administered Medications Discontinued Medications Albuterol (Albut/Ipratrop 3mg/0.5mg Neb 3 Ml Vial) 9 ml NEB NOW STA; Protocol Stop: 01/24/23 15:01 Last Admin: 01/24/23 15:50 Dose: 9 ml Documented By: ROHAN Diphenhydramine HCl (Diphenhydramine 50 Mg/Ml Vial) 50 mg IV NOW STA Stop: 01/24/23 15:59 Last Admin: 01/24/23 16:01 Dose: 50 mg Documented By: REGULO Ceftriaxone Sodium (Rocephin) 2,000 mg in 50 mls @ 100 mls/hr IV NOW STA Stop: 01/24/23 15:57 Last Infusion: 01/24/23 16:22 Dose: Infused Documented By: Admin: 01/24/23 15:40 Dose: 100 mls/hr Documented By: REGULO Azithromycin 500 mg/ Dextrose 255 mls @ 127.5 mls/hr IV NOW STA Stop: 01/24/23 17:27 Last Admin: 01/24/23 16:22 Dose: 127.5 mls/hr Documented By: REGULO Methylprednisolone (Methylprednisolone 40 Mg/Ml Vial) 40 mg IV NOW STA Stop: 01/24/23 15:01 Last Admin: 01/24/23 15:40 Dose: 40 mg Documented By: REGULO Imaging Data Radiologist's Impression: Chest X-Ray 01/24/23 15:00 XR chest 1V portable CLINICAL HISTORY: Chest pain, nonspecific TECHNIQUE: Single frontal radiograph of the chest was obtained. Comparison: Comparison is made to chest radiograph 12/19/2021 FINDINGS: No lines and tubes are seen. Cardiomegaly is noted. Chronic interstitial lung disease is seen. No definite superimposed airspace opacities are seen. No evidence of pleural effusion or pneumothorax. IMPRESSION: Extensive interstitial lung disease and cardiomegaly. No definite superimposed airspace opacities. ACT 112: Negative or not required by law. Electronically signed by: Yonis Booth M.D. 01/24/2023 3:16 PM Discharge Plan Visit Data Chief Complaint: Shortness of Breath/Dyspnea ED Provider: Milind Montelongo Discharge Problem: Hypoxia, COPD with acute exacerbation, SOB (shortness of breath) Forms Stand Alone Forms: My [facility] Prescriptions Prescriptions: No Action (DME) Oxygen Home Liters Per Minute See Dose Instructions .ROUTE .MEDSUPPLY Qty: 1 Rx Instructions: As directed montelukast 10 mg tablet 10 mg PO DAILY rosuvastatin 10 mg tablet 10 mg PO .COMPLEX Rx Instructions: 10 mg PO every 3 days; prednisone 10 mg tablet 15 mg PO DAILY aspirin 81 mg Tablet,Delayed Release (Dr/Ec) 81 mg PO QAM ascorbic acid (vitamin C) 500 mg Tablet 500 mg PO QAM ferrous sulfate 325 mg (65 mg iron) Tablet 325 mg PO QAM cholecalciferol (vitamin D3) [Vitamin D3] 1,000 unit Tablet 2,000 unit PO QAM metformin 1,000 mg tablet 500 mg PO BID Referrals Referrals: Janene York PA-C [Primary Care Provider] -
--- NOTE | 2023-01-24 15:17 | XRay Report ---
XR chest 1V portable CLINICAL HISTORY: Chest pain, nonspecific TECHNIQUE: Single frontal radiograph of the chest was obtained. Comparison: Comparison is made to chest radiograph 12/19/2021 FINDINGS: No lines and tubes are seen. Cardiomegaly is noted. Chronic interstitial lung disease is seen. No def inite superimposed airspace opacities are seen. No evidence of pleural effusion or pneumothorax. IMPRESSION: Extensive interstitial lung disease and cardiomegaly. No definite superimposed airspace opacities. ACT 112: Negative or not required by law. Electronically signed by: Yonis Booth M.D. 01/24/2023 3:16 PM
[2023-01-24] MEDS ORDERED: cefTRIAXone SODIUM 2,000 MG/50 ML BAG IV STA (15:28)
[2023-01-24] MEDS ORDERED: AZITHROMYCIN 500 MG in DEXTROSE 5% 250 ML IV STA (15:28)
[2023-01-24 15:34] LABS: Basophils # (auto) 0.04 K/uL (0.00-0.20); Basophils % (auto) 0.4 %; Eosinophils # (auto) 0.02 K/uL (0.00-0.50); Eosinophils % (auto) 0.2 %; Hemoglobin 11.7 g/dl (14.0-18.0); Immature Granulocytes # (auto) 0.03 K/uL (0.01-0.20); Immature Granulocytes % (auto) 0.3 %; Lymphocytes # (auto) 0.81 K/uL (1.20-3.40); Lymphocytes % (auto) 7.7 %; Mean Corpuscular Hemoglobin 30.8 pg (25.0-34.0); Mean Corpuscular Hgb Conc 31.6 g/dL (32.0-36.0); Mean Corpuscular Volume 97.4 fL (80.0-100.0); Monocytes # (auto) 0.79 K/uL (0.11-0.59); Monocytes % (auto) 7.5 %; Neutrophils # (auto) 8.87 K/uL (1.40-6.50); Neutrophils % (auto) 83.9 %; Platelet Count 224 K/uL (130-400); RDW Coefficient of Variation 14.2 % (11.5-14.5); RDW Standard Deviation 50.9 fL (36.4-46.3); White Blood Count 10.56 K/ul (4.8-10.8)
[2023-01-24 15:51] LABS: Albumin Globulin Ratio 0.8 (0.9-2); Albumin Level 3.3 gm/dl (3.4-5.0); BUN Creatinine Ratio 23.9 (10-20); Est GFR (African American) 105.6 ml/min; Est GFR (Non-African American) 91.1 ml/min; Globulin 4.3 gm/dl (2.5-4.0); Potassium 4.2 mmol/L (3.5-5.1); Total Protein 7.6 gm/dl (6.0-8.3)
[2023-01-24 15:57] LABS: Troponin I High Sensitivity 7.3 pg/ml (0-20)
[2023-01-24] MEDS ORDERED: diphenhydrAMINE 50 MG/ML VIAL IV STA (15:58)
[2023-01-24 16:07] LABS: Influenza A virus by PCR Negative (Neg); Influenza B virus by PCR Negative (Neg); RSV by PCR Negative (Neg); SARS CoV2 RNA(COVID-19) Ceph NEGATIVE (Negative)
--- NOTE | 2023-01-24 17:08 | History & Physical Report ---
Date of Service January 24, 2023 Assessment & Plan (1) COPD exacerbation: Plan: Acute shortness of breath, dyspnea with COPD exacerbation 3 days of cough, increase shortness of breath, and change in sputum production to green/brown worsening over the last 72 hours Chest x-ray difficult to interpret due to chronic underlying ILD changes. Low suspicion for PE, patient with clear infectious symptoms changes sputum and will treat with Rocephin/azithromycin on admission. If not clinically progressing then can follow-up with CT at that time Baseline 5 L oxygen at home, patient requiring nonrebreather in ER, subsequently improved and back to 5-6 L nasal cannula after hour-long neb and steroid Methylprednisolone 40 mg twice daily, wean based on clinical progression. Pulmonary toilet. DuoNebs as needed. Montelukast continued. He reports he had some chest pain when coughing, otherwise denies chest pain/angina. Pro-Ray pending Sputum culture pending (2) ILD (interstitial lung disease): Plan: Interstitial lung disease Past biopsy consistent with UIP but without adequate sample size for definitive diagnosis. Patient is not a candidate for chronic immunosuppression or transplant, and has been declined on prior lung transplant evaluation. Followed with pulmonology, last visit 2021 patient has previously had palliative care and home hospice set up in the event that he terminally/clinically deteriorates. Patient is currently following with [facility]. He is chronically on prednisone 15 mg with a possible taper this coming spring if doing well. Patient has discussed with both palliative care and his ship mate that if his clinical condition deteriorates then he is ready to transition to hospice, in the meantime would like to continue treatments available to him and treat acute exacerbation/infections Patient reports he does not tolerate BiPAP. Cannot tolerate a machine when this was ordered in the past and developed rapid swelling in his extremities. Denies history of right heart failure, GA, and ischemic disease. (3) Diabetes mellitus: Plan: Type II DM Last A1c 6.7 Hold home metformin Transition to sliding scale SSI goal BSG 642012 Weight-based basal 17 units twice daily, CF 25, carb ratio 10. - Pharmacy consulted for ajustments while on steroids (4) Cirrhosis: Plan: Cirrhosis Suspected due to fatty liver disease Workup January 2023 with weakly positive ASMA not thought to be the cause of his disease on GI follow-up, and negative LULU/AMA/alpha-1 antitrypsin/AFP/hepatitis panel. Liver ultrasound normal. 1.4 cm renal cyst pending follow-up with PCP Transaminases normal on admission, no evidence of cirrhotic decompensation on admission. Noted Plan DVT prophylaxis: Lovenox Disposition: Medical/surgical Diet: Regular CODE STATUS: DNR/DN History of Present Illness Primary Care Provider: Janene York PA-C Alexx is a 77-year-old male with a past medical history of interstitial lung disease, COPD, CHF chronically on 5 L nasal cannula, cirrhosis suspected from fatty liver disease who last saw GI 01/08/2023 and is pending 6-month follow-up who presents with shortness of breath. Per ER was short of breath requiring Nonrebreather on arrival. Post steroids and hour long breathing tx --> back to 5-6L NC. Arvin is seen with his Sophie present. Reports 3 days ago progressive cough, shortness of breath, and fatigue. Sputum is chagned to yellow/green/creamy white which is not normal for him. No night sweats. No chills. No fevers at home. Greatly increased wheezing x3 days mostly worse at ngiht but with some increase during the day No chest pain, no chest pressure. 1x transient episode of chest pain when coughing in the last day. No sweats. No pain at bedside assessment Denies history of heart problems/CHF/ischemic disease Arvin reports he switched to [facility] care Dr. Hull in [place]. Has been on chronic p rednisone 15mg to treat his ILD, then trial a taper. Pt reports he had his lungs tested but was decliend by [facility] adn [facility] and toldhe is not a candidate for transplant, and is not a candidate for antifibrotic tx. reports he anticipates transitioning to palliative care/hospice once his underlying disease progresses, treating any exacerbations and acute conditions with antibiotics and reasonable treatments in the mean time. Denies other symptoms. Denies urinary symptoms. Medical History: Reviewed Medications: Reviewed Surgical History: Reviewed Family history: Reviewed Allergies: Reviewed Social History: No tobacco, former ETOH no recent use. Code Status:DNR/DNI Allergies Allergy/AdvReac Type Severity Reaction Status Date / Time Penicillins Allergy Mild Rash Verified 01/24/23 15:56 citalopram Allergy Unknown joint pain Verified 01/24/23 15:56 gabapentin Allergy Unknown joint pain Verified 01/24/23 15:56 Iodinated Contrast Media Allergy Unknown Hives Verified 01/24/23 15:56 Esenjuu-WKG-MqX Reductase AdvReac Unknown SEVERE Verified 01/24/23 15:56 Inhibitor MUSCLE [Rpxfjnj-Nkj-Opn Reductase ACHES Inhibitor] Home Medications Medication Instructions Recorded Confirmed Type ascorbic acid (vitamin C) 500 mg 500 mg PO QAM 07/29/18 01/24/23 History tablet aspirin 81 mg tablet,delayed 81 mg PO QAM 07/29/18 01/24/23 History release cholecalciferol (vitamin D3) 25 2,000 unit PO QAM 07/29/18 01/24/23 History mcg (1,000 unit) tablet (Vitamin D3) ferrous sulfate 325 mg (65 mg 325 mg PO QAM 07/29/18 01/24/23 History iron) tablet Oxygen Home #1 ea 11/20/18 01/08/23 History montelukast 10 mg tablet 10 mg PO DAILY 03/11/20 01/24/23 History rosuvastatin 10 mg tablet 10 mg PO .COMPLEX 03/16/21 01/24/23 History metformin 1,000 mg tablet 500 mg PO BID 01/11/22 01/24/23 History prednisone 10 mg tablet 15 mg PO DAILY 07/11/22 01/24/23 History Past Med/Surg History Medical History (Updated 01/11/22 @ 10:13 by Roland Alcaraz PA-C) Hypoxemia Chronic obstructive pulmonary disease Carcinoma of bladder COPD exacerbation Vitamin B12 deficiency Hyperlipidemia Hypertension Diabetes mellitus Bronchitis ILD (interstitial lung disease) PNA (pneumonia) Interstitial lung disease COPD (chronic obstructive pulmonary disease) CHF (congestive heart failure) Neuropathy Surgical History History of lithotripsy History of neck surgery History of partial cystectomy History of back surgery No pertinent past surgical history Family History Unknown Diabetes Stroke Coronary heart disease Other No significant family history Social History Smoking Status: Former smoker Tobacco Type: Cigarettes Hx Alcohol Use: No Hx Substance Use: No Preferred Language: Mosotho Communication Ability: Effective Channeler Runner Required: No Beliefs That Will Affect Care: None marital status: Current Living Situation: Spouse How many Children do You have: 2 Feels Safe at Home: Yes Assistive Devices: Hearing Aid - Bilateral Physical Exam Physical Exam: General: A&Ox3. NAD. Cooperative. HEENT: Atraumatic, normocephalic. Vision/hearing intact. PERLAA. Pulm:Scattered high pitched inspiratory wheeze, scattered minimal expiratory wheezes. Symmetrical chest rise. No increased work of breathing. No respiratory distress. Cardiac: regular, tachycardic. Radial pulses intact and symmetrical. Abdominal: Nontender, nondistended, soft. BS present. Ext: warm, dry. No edema Results & Data Results & Data Vital Signs (Past 12 Hours) Vital Signs Temp Pulse Pulse Resp BP BP Pulse Ox 01/24/23 15:52 111 H 21 9 L 01/24/23 15:41 113 H 01/24/23 15:16 103 H 26 H 138/77 95 01/24/23 15:16 98 01/24/23 15:16 36.7 C 108 H 28 H 138/77 98 01/24/23 15:16 O2 Del Method O2 Flow Rate 01/24/23 15:52 5 01/24/23 15:41 01/24/23 15:16 Non-rebreather 5 01/24/23 15:16 Non-rebreather 10 01/24/23 15:16 Non-rebreather 10 01/24/23 15:16 Non-rebreather 10 PG Care Time/CCT Total # of Minutes Spent Total Time Spent with Patient: Total time spent is greater than 50% in coordination of care (as documented) at patient's floor/unit and/or counseling patient: Coding Level of Care Code 18486 INT INP/OBS CARE 3/75MIN Diagnoses COPD exacerbation J44.1 ILD (interstitial lung disease) J84.9 Diabetes mellitus E11.9 Cirrhosis K74.60
[2023-01-24 17:28] LABS: Base Excess VBG 7.4 mEq/L; HCO3 VBG 35 mmol/L; Oxygen Saturation VBG < 60.0 %; PCO2 VBG 64 mmHg (38-50); PO2 VBG 37 mmHg; pH VBG 7.35 (7.36-7.41)
[2023-01-24] MEDS ORDERED: GLUCOSE 10 TAB/TUBE PO PRN (18:28)
[2023-01-24] MEDS ORDERED: CARBOHYDRATES FOR HYPOGLYCEMIA PO PRN (18:28)
[2023-01-24] MEDS ORDERED: DEXTROSE 50% 50 ML SYRINGE IV PRN (18:28)
[2023-01-24] MEDS ORDERED: PHARMACY GLYCEMIC MGMT CONSULT PRN (18:28)
[2023-01-24] MEDS ORDERED: ALBUT/IPRATROP 3MG/0.5MG NEB 3 ML VIAL NEB PRN (18:28)
[2023-01-24] MEDS ORDERED: GLUCAGON FOR INJ 1 MG VIAL SQ PRN (18:28)
[2023-01-24] MEDS ORDERED: ACETAMINOPHEN 325 MG TAB PO PRN (18:28)
[2023-01-24] MEDS ORDERED: GLUCOSE 40% GEL 15 GM TUBE PO PRN (18:28)
[2023-01-24] MEDS: INSULIN ASPART PER UNIT CHARGE SC SCH (20:07)
[2023-01-24] MEDS: LANTUS PER UNIT CHARGE SQ SCH (22:12)
[2023-01-25] MEDS: INSULIN ASPART PER UNIT CHARGE SC SCH ×5 (02:35→21:59)
[2023-01-25 07:44] LABS: Basophils # (auto) 0.02 K/uL (0.00-0.20); Basophils % (auto) 0.2 %; Hematocrit (blood only) 35.1 % (42.0-52.0); Hemoglobin 10.9 g/dl (14.0-18.0); Immature Granulocytes # (auto) 0.06 K/uL (0.01-0.20); Immature Granulocytes % (auto) 0.5 %; Lymphocytes # (auto) 0.94 K/uL (1.20-3.40); Lymphocytes % (auto) 8.4 %; Mean Corpuscular Hemoglobin 30.5 pg (25.0-34.0); Mean Corpuscular Hgb Conc 31.1 g/dL (32.0-36.0); Mean Corpuscular Volume 98.3 fL (80.0-100.0); Mean Platelet Volume 10.3 fL (9.4-12.4); Monocytes # (auto) 0.85 K/uL (0.11-0.59); Monocytes % (auto) 7.6 %; Neutrophils # (auto) 9.38 K/uL (1.40-6.50); Neutrophils % (auto) 83.3 %; Platelet Count 186 K/uL (130-400); RDW Coefficient of Variation 13.8 % (11.5-14.5); RDW Standard Deviation 50.2 fL (36.4-46.3); Red Blood Count 3.57 M/uL (4.70-6.10); White Blood Count 11.25 K/ul (4.8-10.8)
[2023-01-25 08:09] LABS: BUN Creatinine Ratio 30.8 (10-20); Calcium 9.1 mg/dl (8.6-10.3); Est GFR (African American) 120.1 ml/min; Est GFR (Non-African American) 103.6 ml/min; Potassium 4.4 mmol/L (3.5-5.1)
[2023-01-25] MEDS: ASPIRIN 81 MG ECTAB PO SCH (08:13)
[2023-01-25] MEDS: methylPREDNISolone 40 MG in SYRINGE 0 ML IV SCH ×2 (08:13→20:43)
[2023-01-25] MEDS: ASCORBIC ACID 500 MG TAB PO SCH (08:13)
[2023-01-25] MEDS: MONTELUKAST SODIUM 10 MG TABLET PO SCH (08:13)
[2023-01-25] MEDS: LANTUS PER UNIT CHARGE SQ SCH (08:25)
[2023-01-25] MEDS ORDERED: AZITHROMYCIN 250 MG in DEXTROSE 5% 250 ML IV SCH (09:00)
--- NOTE | 2023-01-25 09:24 | Electrocardiogram Report ---
Test Reason : Blood Pressure : / mmHG Vent. Rate : 112 BPM Atrial Rate : 112 BPM P-R Int : 152 ms QRS Dur : 088 ms QT Int : 324 ms P-R-T Axes : 036 082 020 degrees QTc Int : 442 ms Sinus tachycardia Possible Left atrial enlargement Borderline ECG When compared with ECG of 19-DEC-2021 10:00, Premature atrial complexes are no longer Present Confirmed by Jordon Foss ([id number]) on 01/25/2023 9:24:03 AM Referred By: Confirmed By:Jordon Foss
--- NOTE | 2023-01-25 13:34 | Hospitalist Progress Note ---
Date of Service January 25, 2023 Assessment & Plan (1) COPD exacerbation: Plan: Acute shortness of breath, dyspnea with COPD exacerbation 3 days of cough, increase shortness of breath, and change in sputum production to green/brown worsening over the last 72 hours Chest x-ray difficult to interpret due to chronic underlying ILD changes. Low suspicion for PE, If not clinically progressing then can follow-up with CT at that time Baseline 5 L oxygen at home, patient requiring nonrebreather in ER, subsequently improved and back to 5-6 L nasal cannula after hour-long neb and steroid Methylprednisolone 40 mg twice daily, wean based on clinical progression. Pulmonary toilet. DuoNebs as needed. Montelukast continued. Pro-Ray negative Sputum culture pending - Abx changed from azithromycin to Levaquin (2) ILD (interstitial lung disease): Plan: Interstitial lung disease Past biopsy consistent with UIP but without adequate sample size for definitive diagnosis. Patient is not a candidate for chronic immunosuppression or transplant, and has been declined on prior lung transplant evaluation. Followed with pulmonology, last visit 2021 patient has previously had palliat [place] care and home hospice set up in the event that he terminally/clinically deteriorates. Patient is currently following with [facility]ology/PCP. He is chronically on prednisone 15 mg with a possible taper this coming spring if doing well. Patient has discussed with both palliative care and his supervisor [employer] that if his clinical condition deteriorates then he is ready to transition to hospice, in the meantime would like to continue treatments available to him and treat acute exacerbation/infections Patient reports he does not tolerate BiPAP. Cannot tolerate a machine when this was ordered in the past and developed rapid swelling in his extremities. Denies history of right heart failure, [place], and ischemic disease. (3) Diabetes mellitus: Plan: Type II DM Last A1c 6.7 Hold home metformin Transition to sliding scale SSI goal BSG [id number] Weight-based basal 17 units twice daily, CF 25, carb ratio 10. - Pharmacy consulted for ajustments while on steroids (4) Cirrhosis: Plan: Cirrhosis Suspected due to fatty liver disease Workup January 2023 with weakly positive ASMA not thought to be the cause of his disease on GI follow-up, and negative LULU/AMA/alpha-1 antitrypsin/AFP/hepatitis panel. Liver ultrasound normal. 1.4 cm renal cyst p ending follow-up with PCP Transaminases normal on admission, no evidence of cirrhotic decompensation on admission. Noted Plan DVT prophylaxis: Lovenox Disposition: continued inpatient stay Admission and Anticipated Discharge Date Admission Date: January 24, 2023 Supervising Physician Co-Signing Physician Notes Attending Attestation & Progress Note: Pt seen/examined, chart reviewed, care plan d/w GEETHA Plata. I agree with the ivan components of her documentation. 77yo male with COPD/ILD/chronic hypoxic resp failure on home 02. Presented with acute/chronic hypoxic respiratory failure at time of ER admission. Required a nonrebreather in ER and O2 requirements slowly improved. Today he feels better with steroids/abx. Exam - gen - NAD, pleasant neck - no JVD heart - RRR, s1 s2 lungs - extensive wheezing b/l, rales b/l bases, no increased work of breathing abd - soft NT ND BS+ ext - no edema, pulses 2+ b/l psych - a/o x 3 A/P: 1. acute on chronic hypoxic respiratory failure - acute component improving. 2. COPD / ILD exacerbation - improved, but still with significant wheezing, cough, etc. No d/c today. Cont steroids, abx, etc. re-eval tomorrow Car Waller MD Subjective Patient seen this morning sitting up in bed, 5L nasal canula (which is his baseline). States he is feeling about 75% better. At home he can walk about 5 steps before too short of breath, uses a motorized wheelchair to get to the restroom, etc. Does not ambulate much. States for the last few days was coughing up green/dark colored sputum but sputum production has decreased and returned to a more clear/yellow color. Has not used nebs, but does not feel like he needs them today. Reports good appetite. Denies CP. Review of Systems Review of Systems: All systems reviewed & are unremarkable except as noted in Subjective Physical Exam Physical Exam: General: WN/WD, NAD, VS as above Resp: unable to speak in full sentences, diminshed lung sounds with crackles CV: RRR, no murmur, no edema Abd: normal bowel sounds, non tender, no hepatosplenomegaly Extremities: Moves all extremities, no edema Neuro: A&O x3, Skin: intact, no lesions noted Results & Data Results & Data Vital Signs (Past 12 Hours) Vital Signs Temp Pulse Pulse Resp BP Pulse Ox O2 Del Method 01/25/23 09:11 Nasal Cannula 01/25/23 07:30 36.4 C L 87 18 130/70 96 Nasal Cannula 01/25/23 02:21 90 93 Nasal Cannula O2 Flow Rate 01/25/23 09:11 5 01/25/23 07:30 5 01/25/23 02:21 5 Laboratory Results Reviewed CBC, chemistry and viral screening. Procalcitonin and lipase. PG Care Time/CCT Total # of Minutes Spent Total Time Spent with Patient: Total time spent is greater than 50% in coordination of care (as documented) at patient's floor/unit and/or counseling patient: Coding Level of Care Code 96158 SUB INP/OBS CARE 3/50MIN Diagnoses COPD exacerbation J44.1 ILD (interstitial lung disease) J84.9 Diabetes mellitus E11.9 Cirrhosis K74.60
[2023-01-25] MEDS: levoFLOXacin/D5W 750 MG/150 ML BAG IV SCH (13:45)
--- NOTE | 2023-01-25 14:13 | Pharmacy Report ---
Pharmacy Glycemic Short Note 2 - Date of Service January 25, 2023 - Glycemic Short BSG Results (Last 24 hours): 01/24/23 01/24/23 01/25/23 15:07 18:35 02:12 Glucose 274 H POC Glucose 211 H 154 H 01/25/23 01/25/23 01/25/23 07:17 08:13 11:58 Glucose 130 H POC Glucose 117 H 93 OUTPATIENT ANTIDIABETIC REGIMEN: * metformin 500 mg PO BID * HbA1C = 6.7% (08/13/22) ASSESSMENT: * Mr Dickinson is a 77 y/o M with a PMH of T2DM who presents with a COPD exacerbation. He is on PO prednisone at home. * Initially, patient's BSGs in the ER were 274-211 mg/dL. Patient received 17 units of Lantus + 8 units of Novolog in the ER. * Today, BSGs are 117-93 mg/dL. Patient is on Solu-Medrol 40 mg IV q12. * Continue with Lantus 17 units this morning. Will provide a weight-based scale for tomorrow morning. * Novolog weight-based stress of 2 for for now. PLAN FOR INPATIENT GLYCEMIC CONTROL: * Hold outpatient oral diabetes medications * Basal insulin * Lantus 17 units SQ x 1 then 10-20 units SQ qAM * Bolus insulin * NovoLog per scale ACHS or Q6hrs while NPO * Goal Range: Low 110 mg/dL - High 140 mg/dL * Correction Factor: 25 mg/dL/unit * Nutritional / Prandial insulin per carb ratio of 1 unit per 7 grams CHO consumed
[2023-01-26] MEDS: MONTELUKAST SODIUM 10 MG TABLET PO SCH (07:40)
[2023-01-26] MEDS: ASPIRIN 81 MG ECTAB PO SCH (07:40)
[2023-01-26] MEDS: methylPREDNISolone 40 MG in SYRINGE 0 ML IV SCH (07:40)
[2023-01-26] MEDS: ASCORBIC ACID 500 MG TAB PO SCH (07:41)
[2023-01-26 07:59] LABS: Basophils # (auto) 0.02 K/uL (0.00-0.20); Basophils % (auto) 0.2 %; Hematocrit (blood only) 37.3 % (42.0-52.0); Hemoglobin 11.6 g/dl (14.0-18.0); Immature Granulocytes # (auto) 0.08 K/uL (0.01-0.20); Immature Granulocytes % (auto) 0.6 %; Lymphocytes # (auto) 0.93 K/uL (1.20-3.40); Mean Corpuscular Hemoglobin 30.5 pg (25.0-34.0); Mean Corpuscular Hgb Conc 31.1 g/dL (32.0-36.0); Mean Corpuscular Volume 98.2 fL (80.0-100.0); Mean Platelet Volume 10.7 fL (9.4-12.4); Monocytes # (auto) 0.69 K/uL (0.11-0.59); Monocytes % (auto) 5.2 %; Neutrophils # (auto) 11.52 K/uL (1.40-6.50); Platelet Count 235 K/uL (130-400); RDW Coefficient of Variation 13.8 % (11.5-14.5); RDW Standard Deviation 49.8 fL (36.4-46.3); White Blood Count 13.24 K/ul (4.8-10.8)
[2023-01-26 08:11] LABS: BUN Creatinine Ratio 32.2 (10-20); Calcium 9.3 mg/dl (8.6-10.3); Creatinine Clr Calc Pharmacy 120.7 ml/min; Est GFR (Non-African American) 98.3 ml/min; Potassium 4.7 mmol/L (3.5-5.1)
[2023-01-26] MEDS: INSULIN ASPART PER UNIT CHARGE SC SCH ×2 (08:37→12:14)
[2023-01-26] MEDS ORDERED: LANTUS PER UNIT CHARGE SQ SCH ×2 (09:00)
[2023-01-26] MEDS: levoFLOXacin/D5W 750 MG/150 ML BAG IV SCH (12:13)
--- NOTE | 2023-01-26 12:47 | Discharge Summary ---
Discharge Summary Date of Service January 26, 2023 Notes For Next Care Provider -Sputum Culture pending, please call the hospital on Sunday 01/28 to ensure antibiotics are appropriate. - Steroid taper as follows: -40mg tonight, 01/26 - 30mg twice a day x2 days - 20mg twice a day x2 days - 20 mg once a day x2 days - Resume 15mg baseline -Antibiotics - Levaquin 750mg daily for 5 more days. Start this 01/27, last day 01/31 Medication Changes From Visit Steroid taper started. Levaquin for 5 more days Admission HPI Per Admitting Provider Alexx is a 77-year-old male with a past medical history of interstitial lung disease, COPD, CHF chronically on 5 L nasal cannula, cirrhosis suspected from fatty liver disease who last saw GI 01/08/2023 and is pending 6-month follow-up who presents with shortness of breath. Per ER was short of breath requiring Nonrebreather on arrival. Post steroids and hour long breathing tx --> back to 5-6L [place]. Arvin is seen with his Sophie present. Reports 3 days ago progressive cough, shortness of breath, and fatigue. Sputum is chagned to yellow/green/creamy white which is not normal for him. No night sweats. No chills. No fevers at home. Greatly increased wheezing x3 days mostly worse at ngiht but with some increase during the day No chest pain, no chest pressure. 1x transient episode of chest pain when coughing in the last day. No sweats. No pain at bedside assessment Denies history of heart problems/CHF/ischemic disease Arvin reports he switched to [facility] Dr. Hull in [place]. Has been on chronic pr ednisone 15mg to treat his ILD, then trial a taper. Pt reports he had his lungs tested but was decliend by [facility] and toldhe is not a candidate for transplant, and is not a candidate for antifibrotic tx. reports he anticipates transitioning to palliative care/hospice once his underlying disease progresses, treating any exacerbations and acute conditions with antibiotics and reasonable treatments in the mean time. Denies other symptoms. Denies urinary symptoms. Medical History: Reviewed Medications: Reviewed Surgical History: Reviewed Family history: Reviewed Allergies: Reviewed Social History: No tobacco, former ETOH no recent use. Code Status:DNR/DNI Principal Dx & Hospital Course #1 = Principal Diagnosis (1) COPD exacerbation: Acute shortness of breath, dyspnea with COPD exacerbation 3 days of cough, increase shortness of breath, and change in sputum production to green/brown worsening over the last 72 hours Chest x-ray difficult to interpret due to chronic underlying ILD changes. Low suspicion for PE, If not clinically progressing then can follow-up with CT at that time Baseline 5 L oxygen at home, patient requiring nonrebreather in ER, subsequently improved and back to 5-6 L nasal cannula after hour-long neb and steroid Methylprednisolone 40 mg twice daily, steroid taper as prescribed Pulmonary toilet. DuoNebs as needed. Montelukast continued. Pro-Ray negative Sputum culture pending - Abx changed from azithromycin to Levaquin - continue p.o. outpatient. (2) ILD (interstitial lung disease): Interstitial lung disease Past biopsy consistent with UIP but without adequate sample size for definitive diagnosis. Patient is not a candidate for chronic immunosuppression or transplant, and has been declined on prior lung transplant evaluation. Followed with pulmonology, last visit 2021 patient has previously had palliative care and home hospice set up in the event that he terminally/clinically deteriorates. Patient is currently following with [facility]. He is chronically on prednisone 15 mg with a possible taper this coming spring if doing well. Patient has discussed with both palliative care and his anthropology professor that if his clinical condition deteriorates then he is ready to transition to hospice, in the meantime would like to continue treatments available to him and treat acute exacerbation/infections Patient reports he does not tolerate BiPAP. Cannot tolerate a machine when this was ordered in the past and developed rapid swelling in his extremities. Denies history of right heart failure, [place], and ischemic disease. (3) Diabetes mellitus: Type II DM Last A1c 6.7 Resume metformin (4) Cirrhosis: Cirrhosis Suspected due to fatty liver disease Workup January 2023 with weakly positive ASMA not thought to be the cause of his disease on GI follow-up, and negative LULU/AMA/alpha-1 antitrypsin/AFP/hepatitis panel. Liver ultrasound normal. 1.4 cm renal cyst pending follow-up with PCP Transaminases normal on admission, no evidence of cirrhotic decompensation on admission. Noted (5) Acute on chronic hypoxic respiratory failure: Plan discharge to home today. Follow-up with your lung doctor within 5 days Discharge Exam General: WN/WD, NAD, VS as above Resp: normal respiratory effort, crackles still present throuhout but improved, minimal to no wheezing CV: RRR, no murmur, no edema Abd: normal bowel sounds, non tender, no hepatosplenomegaly Extremities: Moves all extremities, no edema Neuro: A&O x3, Skin: intact, no lesions noted Updated Medication List Medication Instructions Recorded Confirmed Type ascorbic acid (vitamin C) 500 mg 500 mg PO QAM 07/29/18 01/24/23 History tablet aspirin 81 mg tablet,delayed 81 mg PO QAM 07/29/18 01/24/23 History release cholecalciferol (vitamin D3) 25 2,000 unit PO QAM 07/29/18 01/24/23 History mcg (1,000 unit) tablet (Vitamin D3) ferrous sulfate 325 mg (65 mg 325 mg PO QAM 07/29/18 01/24/23 History iron) tablet Oxygen Home #1 ea 11/20/18 01/08/23 History montelukast 10 mg tablet 10 mg PO DAILY 03/11/20 01/24/23 History rosuvastatin 10 mg tablet 10 mg PO .COMPLEX 03/16/21 01/24/23 History metformin 1,000 mg tablet 500 mg PO BID 01/11/22 01/24/23 History prednisone 10 mg tablet 15 mg PO DAILY 07/11/22 01/24/23 History prednisolone sodium phosphate 10 See Rx Instructions .Route 01/26/23 Rx mg disintegrating tablet .COMPLEX #28 tabs Hospital Stay Data Consultations 01/24/23 16:58 ED Decision to Admit Stat Pending Results Patient Have Any Pending Studies at Discharge: Yes (Sputum culture - call PCP or anthropology professor on Saturday to confirm ) Discharge Instructions Given to Patient (Per Discharging Provider) Mr. Dickinson, You were hospitalized after having COPD exacerbation after bronchitis. During your hospital stay you were given steroids to help with inflammation and antibiotics to treat any underlying infection. You will have to continue these medications at home: - Steroid taper back to baseline 15mg -40mg tonight, 01/26 - 30mg twice a day x2 days - 20mg twice a day x2 days - 20 mg once a day x2 days - Resume 15mg baseline -Antibiotics - Levaquin 750mg daily for 5 more days. Start this 11/26, last day 01/31 - Your sputum culture is not back yet, but this antibiotic should cover anything that grows, contact your PCP or anthropology professor Sunday 01/28 for final results of this You should continue using your incentive spirometer and flutter valve at home. Use the albuterol nebulizer treatments as needed for wheezing. If your symptoms get worse, sputum changes color, or your develop a fever. Please contact your anthropology professor or return to the ER. It was our pleasure taking care of you, Manasa Plata PA-C Total Time Total Time Spent Total Time Spent (In Minutes): 35 Supervising Physician Co-Signing Physician Notes Attending Attestation & Discharge Note: Pt seen/examined, chart reviewed, discharge care plan d/w GEETHA Plata. I agree with the ivan components of her discharge documentation. 77yo male with COPD/ILD/chronic hypoxic resp failure on home 02. Presented with acute/chronic hypoxic respiratory failure at time of ER admission. Required a nonrebreather in ER and O2 requirements slowly improved back to his usual [place] o2. Rx with steroids/abx/neb treatments/supportive care. All pulmonary symptoms improved with the above. He will complete a prednisone taper and several more days of antibiotics in the form of levaquin. Discharge Exam - gen - NAD, pleasant, looks better than yesterday neck - no JVD heart - RRR, s1 s2, no murmur lungs - wheezing b/l improved; rales b/l bases improved; no increased work of breathing abd - soft NT ND BS+ ext - no edema, pulses 2+ b/l psych - a/o x 3 A/P: 1. acute on chronic hypoxic respiratory failure - acute component resolving. 2. COPD / ILD exacerbation - improved. He is back to his baseline [place] o2 needs of 5 L continuously. Finish steroid taper, finish abx course (total 7 days). f/u on sputum cx post-discharge. Fortunately he had no evidence of complicating CHF, etc. Car Waller MD Coding Level of Care Code 68981 INP/OBS DISCH >30 MIN Diagnoses COPD exacerbation J44.1 ILD (interstitial lung disease) J84.9 Diabetes mellitus E11.9 Cirrhosis K74.60 Acute on chronic hypoxic respiratory failure J96.21
== END 2023-01-26 14:41 | disposition home or self-care (01) | DRG 191 ==
LOC: ED 14:55 → EDINP 17:29 → SUATTDRO 17:29 → 3N 18:28
DX: Z66 Do not resuscitate; Z91.041 Radiographic dye allergy status; Z88.0 Allergy status to penicillin; E11.9 Type 2 diabetes mellitus without complications; J84.9 Interstitial pulmonary disease, unspecified; K74.60 Unspecified cirrhosis of liver; J44.1 Chronic obstructive pulmonary disease with (acute) exacerbation; Z88.8 Allergy status to other drugs, medicaments and biological substances; Z87.891 Personal history of nicotine dependence

== ENCOUNTER 2023-02-27 18:00 | Inpatient (IN) ==
--- NOTE | 2023-02-27 18:36 | Emergency Department Note ---
Impression & Plan Acute GI bleeding, SOB (shortness of breath), Generalized weakness, Bilateral edema of lower extremity, Severe anemia ED Provider Note NAME: JENNIFER MOORE AGE: 77 SEX: Male INFORMANT: Patient ED PROVIDER(S): Miko Marie MD CHIEF COMPLAINT: Shortness of breath PLAN: Disposition: Admitted Outpatient prescription management: none Referral: None MEDICAL DECISION MAKING: Patient presented because of shortness of breath. He had mild hypoxia. His history is concerning as he has significant hypoxia with minimal exertion and is not doing well at home. Patient is requesting admission. IV established. Chest x-ray and blood work obtained ECG showed a sinus tachycardia without ST elevation or depression. Nonspecific ST. patient had a significant anemia noted on CBC. He has dropped almost 4 g from last measurement. On further discussion he has been having dark stools and a rectal examination was performed. He was Hemoccult positive with melanotic stool. Given his lung disease and his significant anemia I suspect a GI bleed is causing this worsening shortness of breath and weakness. Protonix and Pepcid were ordered. Consented patient for blood transfusion. 1 unit packed red blood cells ordered. Patient will need further management in the hospital. [facility] Case discussed and diagnostics were reviewed. Patient was evaluated in the ER admitted for further management. Care/management discussed with: manager of project management Level of care consideration(s): After review of the information above and other included data, I feel the patient requires further escalation of care to admission Triage Nursing notes: reviewed and agree them. Vital Signs: reviewed and remarkable for mild tachycardia Additional History obtained from: Patient's . Patient has been generally weak. He has had dark black stools this week. Chronic Medical/Social Conditions affecting care: Interstitial lung disease Prior/ Outside/ External records reviewed: none Differential Diagnosis: Infection, dehydration, metabolic abnormality, hypo/hyperglycemia, electrolyte disturbance, anemia, hypoxia, cardiac sources, intracerebral event, toxicologic, neurologic, as well as other pathologies. Diagnostics, independently interpreted by me: ECG: Twelve-lead ECG reveals sinus tachycardia [address] elevation or depression. Nonspecific ST. Cardiac Monitoring: none Medical decision rules: none Imaging studies: Chest x-ray reveals increased interstitial markings consistent with his interstitial lung disease. No obvious pneumothorax or superimposed infiltrate. HPI: 77 year old Male arrives for evaluation of shortness of breath and dyspnea. This has been going on for several weeks. Patient states he has a history of interstitial lung disease and does wear 5 L nasal cannula oxygen all the time. When he ambulates his pulse oximetry drops into the 70s. He states he gets very dyspneic. He has some mild swelling to the lower extremities but cannot take diuretics secondary to urinary issues. Patient does note some intermittent chest pains. This has been going on for weeks as well. Patient does not feel he is doing well at home and is requesting admission for management. Pt denies LOC, headache, fevers, chills, diaphoresis, visual changes, neck pain, nausea, vomiting, abdominal pain, back pain, melena, hematochezia, urinary symptoms, numbness, lymphadenopathy, rash, or other complaints. PAST MEDICAL HISTORY: See Below, interstitial lung disease, cirrhosis, hypertension PAST SURGICAL HISTORY: See Below, SOCIAL HISTORY: See Below, HOME MEDICATIONS: See Below ALLERGIES: See Below VITALS: See Below PHYSICAL EXAMINATION: GENERAL: Awake, alert, anxious and very dyspneic-appearing, in no distress HENT: Normocephalic, atraumatic. Oropharynx unremarkable. EYES: Normal conjunctiva. Sclera non-icteric. NECK: Inspection normal. Non-tender. Supple. No nuchal rigidity. FROM. No masses. RESPIRATORY: Clear to auscultation. No wheezes. No rales. Increased respiratory effort. CARDIAC: Borderline tachycardic rate. Normal rhythm. No murmurs. No rubs. Extremities warm and well perfused. Pulses equal. No JVD. GI: Soft, non-distended. No tenderness to palpation. No rebound or guarding. No masses. RECTAL: Melanotic stool. Hemoccult positive. MUSCULOSKELETAL: Atraumatic. Chest examination reveals no tenderness. The back is symmetrical on inspection without obvious abnormality. There is no CVA tenderness to palpation. No joint edema. LOWER EXTREMITIES: Calves are equal size bilaterally and non-tender. 2+ edema. No discoloration. NEURO: Normal sensorium. No sensory or motor deficits noted. SKIN: No rash or jaundice noted. PROCEDURES: none CRITICAL CARE: I have personally spent 35 minutes of critical care time in the direct management of this patient. This includes bedside care, interpretation of diagnostic studies, and testing, discussion with consultants, patient, and family members, and other required patient management activities. These minutes are in excess of all separately billable procedures. OBSERVATION NOTE: none Past Med/Surg History Medical History (Updated 02/27/23 @ 20:21 by Miko Marie MD) Hypoxemia Chronic obstructive pulmonary disease Carcinoma of bladder COPD exacerbation Vitamin B12 deficiency Hyperlipidemia Hypertension Diabetes mellitus Bronchitis ILD (interstitial lung disease) PNA (pneumonia) Interstitial lung disease COPD (chronic obstructive pulmonary disease) CHF (congestive heart failure) Neuropathy Surgical History (Updated 02/03/23 @ 00:10 by Griselda Peacock) History of lithotripsy History of neck surgery History of partial cystectomy History of back surgery No pertinent past surgical history Family History Unknown Diabetes Stroke Coronary heart disease Other No significant family history Social History Smoking Status: Former smoker Tobacco Type: Cigarettes Second Hand Exposure: No; Do You Dip or Chew Tobacco: No; Hx Alcohol Use: No Hx Substance Use: No Preferred Language: Prydeinig Communication Ability: Effective Senior Software 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 Required: No Beliefs That Will Affect Care: None marital status: Current Living Situation: Spouse How many Children do You have: 2 Feels Safe at Home: Yes Assistive Devices: Scooter/Electric Scooter and Wheelchair Allergies Allergies Allergy/AdvReac Type Severity Reaction Status Date / Time Penicillins Allergy Mild Rash Verified 01/24/23 15:56 citalopram Allergy Unknown joint pain Verified 01/24/23 15:56 gabapentin Allergy Unknown joint pain Verified 01/24/23 15:56 Iodinated Contrast Media Allergy Unknown Hives Verified 01/24/23 15:56 Erpagip-WBM-IwJ Reductase AdvReac Unknown SEVERE Verified 01/24/23 15:56 Inhibitor MUSCLE [Nqrxzmr-Pzo-Zty Reductase ACHES Inhibitor] Home Meds Home Medications Medication Instructions Recorded Confirmed ascorbic acid (vitamin C) 500 mg 500 mg PO QAM 07/29/18 01/24/23 tablet aspirin 81 mg tablet,delayed 81 mg PO QAM 07/29/18 01/24/23 release cholecalciferol (vitamin D3) 25 2,000 unit PO QAM 07/29/18 01/24/23 mcg (1,000 unit) tablet (Vitamin D3) ferrous sulfate 325 mg (65 mg 325 mg PO QAM 07/29/18 01/24/23 iron) tablet Oxygen Home #1 ea 11/20/18 01/08/23 montelukast 10 mg tablet 10 mg PO DAILY 03/11/20 01/24/23 rosuvastatin 10 mg tablet 10 mg PO .COMPLEX 03/16/21 01/24/23 metformin 1,000 mg tablet 500 mg PO BID 01/11/22 01/24/23 prednisone 10 mg tablet 15 mg PO DAILY 07/11/22 01/24/23 Previous Rx's Medication Instructions Recorded prednisolone sodium phosphate 10 See Rx Instructions .Route 01/26/23 mg disintegrating tablet .COMPLEX #28 tabs Results & Data (ED) Vital Signs Vital Signs - 24 hr 02/27/23 18:11 02/27/23 18:11 02/27/23 18:11 Temperature 36.8 C Temperature Source Oral Pulse Rate 98 H Pulse Rate [Apical] Respiratory Rate 22 Respiratory Effort / Characteristics Non-Labored Spontaneous Non-Labored Spontaneous Respiratory Depth Normal Normal Respiratory Pattern Regular Blood Pressure 172/62 H Blood Pressure [Right Arm] Blood Pressure Mean 98 Blood Pressure Mean [Right Arm] Blood Pressure Position Sitting Pulse Oximetry 98 Oxygen Delivery Method Nasal Cannula Nasal Cannula Nasal Cannula Oxygen Flow Rate 5 5 5 Sepsis Recent Fever Within 48 Hours No Sepsis New/Unexplained Change in Mental Status No Sepsis Action Taken by Nursing No Action Required 02/27/23 18:12 02/27/23 18:17 02/27/23 19:23 Temperature Temperature Source Pulse Rate 101 H 97 H Pulse Rate [Apical] 95 H Respiratory Rate 22 22 Respiratory Effort / Characteristics Non-Labored Respiratory Depth Respiratory Pattern Blood Pressure Blood Pressure [Right Arm] 125/74 Blood Pressure Mean Blood Pressure Mean [Right Arm] 91 Blood Pressure Position Pulse Oximetry 98 99 Oxygen Delivery Method Nasal Cannula Nasal Cannula Oxygen Flow Rate 5 5 Sepsis Recent Fever Within 48 Hours Sepsis New/Unexplained Change in Mental Status Sepsis Action Taken by Nursing Laboratory Data 02/27/23 18:18 02/27/23 18:18 Lab Results 02/27/23 02/27/23 Range/Units 18:18 18:23 WBC 8.37 (4.8-10.8) K/ul RBC 2.45 L (4.70-6.10) M/uL Hgb 7.3 L (14.0-18.0) g/dl Hct 24.6 L (42.0-52.0) % MCV 100.4 H (80.0-100.0) fL MCH 29.8 (25.0-34.0) pg MCHC 29.7 L (32.0-36.0) g/dL RDW Std Deviation 54.0 H (36.4-46.3) fL RDW Coeff of Bessie 14.6 H (11.5-14.5) % Plt Count 267 (130-400) K/uL MPV 10.3 (9.4-12.4) fL Immature Gran % (Auto) 0.6 % Neut % (Auto) 71.1 % Lymph % (Auto) 14.5 % Shelby % (Auto) 10.9 % Eos % (Auto) 2.3 % Baso % (Auto) 0.6 % Neut # (Auto) 5.96 (1.40-6.50) K/uL Lymph # (Auto) 1.21 (1.20-3.40) K/uL Shelby # (Auto) 0.91 H (0.11-0.59) K/uL Eos # (Auto) 0.19 (0.00-0.50) K/uL Baso # (Auto) 0.05 (0.00-0.20) K/uL Immature Gran # (Auto) 0.05 (0.01-0.20) K/uL Polychromasia 1+ Hypochromasia Present Anisocytosis Present PT 11.5 (9.0-12.0) Seconds INR 1.1 (0.9-1.1) APTT 26 (21-31) Seconds PTT Ratio 0.9 Sodium 140 (136-145) mmol/L Potassium 4.1 (3.5-5.1) mmol/L Chloride 105 (98-107) mmol/L Carbon Dioxide 30 (21-32) mmol/L Anion Gap 5 (3-11) BUN 13 (6-23) mg/dl Creatinine 0.70 (0.6-1.4) mg/dl Est Cr Clr Drug Dosing 103.7 ml/min Est GFR ( Amer) 106.2 ml/min Est GFR (Non-Af Amer) 91.7 ml/min BUN/Creatinine Ratio 18.6 (10-20) Glucose 151 H (70-99(Fasting)) mg/dl Calcium 8.3 L (8.6-10.3) mg/dl Magnesium 1.8 (1.7-2.4) mg/dl Total Bilirubin 0.5 (0.2-1.0) mg/dl AST 17 (13-39) U/L ALT 9 (7-52) U/L Alkaline Phosphatase 51 (34-104) U/L Troponin I High Sens 8.2 (0-20) pg/ml Total Protein 6.7 (6.0-8.3) gm/dl Albumin 3.2 L (3.4-5.0) gm/dl Globulin 3.5 (2.5-4.0) gm/dl Albumin/Globulin Ratio 0.9 (0.9-2) Adenovirus (PCR) Not Detected (NotDetected) B. pertussis DNA (PCR) Not Detected (NotDetected) B.parapertussis DNA PCR Not Detected (NotDetected) C. pneumoniae DNA (PCR) Not Detected (NotDetected) Coronavirus OC43 (PCR) Not Detected (NotDetected) Coronavirus HKU1 (PCR) Not Detected (NotDetected) Coronavirus 229E (PCR) Not Detected (NotDetected) SARS-CoV-2 (PCR) Not Detected (NotDetected) Coronavirus NL63 (PCR) Not Detected (NotDetected) Human Metapneumovir PCR Not Detected (NotDetected) Influenza Type A (PCR) Not Detected (NotDetected) Influenza Type B (PCR) Not Detected (NotDetected) M. pneumoniae (PCR) Not Detected (NotDetected) Parainfluenza 1 (PCR) Not Detected (NotDetected) Parainfluenza 2 (PCR) Not Detected (NotDetected) Parainfluenza 3 (PCR) Not Detected (NotDetected) Parainfluenza 4 (PCR) Not Detected (NotDetected) RSV (PCR) Not Detected (NotDetected) Entero/Rhino (PCR) Not Detected (NotDetected) Imaging Data Radiologist's Impression: Chest X-Ray 02/27/23 18:14 XR chest 1V portable CLINICAL HISTORY: Dyspnea. COMPARISON STUDY: Chest CT September 09, 2018. Chest radiograph January 24, 2023. FINDINGS: No pneumothorax or pleural effusion is present. Cardiomediastinal silhouette is stable. Diffuse interstitial thickening is similar to chest radiograph of January 24, 2023. No superimposed consolidation is identified. IMPRESSION: No change in diffuse interstitial thickening since prior chest radiograph. This represents interstitial lung disease. No superimposed consolidation identified. ACT 112: Negative or not required by law. Electronically signed by: Nathan De La Vega M.D. 02/27/2023 6:39 PM Discharge Plan Visit Data Chief Complaint: Shortness of Breath/Dyspnea ED Provider: Miko Marie Discharge Problem: Acute GI bleeding, SOB (shortness of breath), Generalized weakness, Bilateral edema of lower extremity, Severe anemia Forms Stand Alone Forms: [facility] [employer] Prescriptions Prescriptions: No Action (DME) Oxygen Home Liters Per Minute See Dose Instructions .ROUTE .MEDSUPPLY Qty: 1 Rx Instructions: As directed montelukast 10 mg tablet 10 mg PO DAILY rosuvastatin 10 mg tablet 10 mg PO .COMPLEX Rx Instructions: 10 mg PO every 3 days; prednisone 10 mg tablet 15 mg PO DAILY Hold Instructions: Resume on 02/02/23. after completing steroid taper aspirin 81 mg Tablet,Delayed Release (Dr/Ec) 81 mg PO QAM ascorbic acid (vitamin C) 500 mg Tablet 500 mg PO QAM ferrous sulfate 325 mg (65 mg iron) Tablet 325 mg PO QAM cholecalciferol (vitamin D3) [Vitamin D3] 1,000 unit Tablet 2,000 unit PO QAM metformin 1,000 mg tablet 500 mg PO BID prednisolone sodium phosphate 10 mg tablet,disintegrating See Rx Instructions .ROUTE .COMPLEX Qty: 28 0RF Rx Instructions: 40mg tonight 01/26 then 30mg twice a day x2 days then 20mg twice a day x2 days then 20 mg once a day x2 days then Resume 15mg baseline Referrals Referrals: Janene York PA-C [Primary Care Provider] -
--- NOTE | 2023-02-27 18:41 | XRay Report ---
XR chest 1V portable CLINICAL HISTORY: Dyspnea. COMPARISON STUDY: Chest CT September 09, 2018. Chest radiograph January 24, 2023. FINDINGS: No pneumothorax or pleural effusion is present. Cardiomediastinal silhouette is stable. Dif fuse interstitial thickening is similar to chest radiograph of January 24, 2023. No superimposed con solidation is identified. IMPRESSION: No change in diffuse interstitial thickening since prior chest radiograph. This represen ts interstitial lung disease. No superimposed consolidation identified. ACT 112: Negative or not required by law. Electronically signed by: Nathan De La Vega M.D. 02/27/2023 6:39 PM
[2023-02-27 19:18] LABS: Basophils # (auto) 0.05 K/uL (0.00-0.20); Basophils % (auto) 0.6 %; Eosinophils # (auto) 0.19 K/uL (0.00-0.50); Eosinophils % (auto) 2.3 %; Hematocrit (blood only) 24.6 % (42.0-52.0); Hemoglobin 7.3 g/dl (14.0-18.0); Immature Granulocytes # (auto) 0.05 K/uL (0.01-0.20); Immature Granulocytes % (auto) 0.6 %; Lymphocytes # (auto) 1.21 K/uL (1.20-3.40); Lymphocytes % (auto) 14.5 %; Mean Corpuscular Hemoglobin 29.8 pg (25.0-34.0); Mean Corpuscular Hgb Conc 29.7 g/dL (32.0-36.0); Mean Corpuscular Volume 100.4 fL (80.0-100.0); Mean Platelet Volume 10.3 fL (9.4-12.4); Monocytes # (auto) 0.91 K/uL (0.11-0.59); Monocytes % (auto) 10.9 %; Neutrophils # (auto) 5.96 K/uL (1.40-6.50); Neutrophils % (auto) 71.1 %; Platelet Count 267 K/uL (130-400); RDW Coefficient of Variation 14.6 % (11.5-14.5); Red Blood Count 2.45 M/uL (4.70-6.10); White Blood Count 8.37 K/ul (4.8-10.8)
[2023-02-27 19:29] LABS: Adenovirus PCR Not Detected (NotDetected); Bordetella parapertussis PCR Not Detected (NotDetected); Bordetella pertussis PCR Not Detected (NotDetected); Chlamydia pneumoniae PCR Not Detected (NotDetected); Coronavirus 229E PCR Not Detected (NotDetected); Coronavirus CoV-2 (COVID19)PCR Not Detected (NotDetected); Coronavirus HKU1 PCR Not Detected (NotDetected); Coronavirus NL63 PCR Not Detected (NotDetected); Coronavirus OC43PCR Not Detected (NotDetected); Human Metapneumovirus PCR Not Detected (NotDetected); Influenza A PCR Not Detected (NotDetected); Influenza B PCR Not Detected (NotDetected); Mycoplasma pneumoniae PCR Not Detected (NotDetected); Parainfluenza Virus 1 PCR Not Detected (NotDetected); Parainfluenza Virus 2 PCR Not Detected (NotDetected); Parainfluenza Virus 3 PCR Not Detected (NotDetected); Parainfluenza Virus 4 PCR Not Detected (NotDetected); Respiratory Syncytial VirusPCR Not Detected (NotDetected); Rhinovirus/Enterovirus PCR Not Detected (NotDetected)
[2023-02-27 19:35] LABS: Troponin I High Sensitivity 8.2 pg/ml (0-20)
[2023-02-27 19:45] LABS: Albumin Level 3.2 gm/dl (3.4-5.0); Bilirubin,Total 0.5 mg/dl (0.2-1.0); Calcium 8.3 mg/dl (8.6-10.3); Magnesium 1.8 mg/dl (1.7-2.4); Potassium 4.1 mmol/L (3.5-5.1)
[2023-02-27 19:46] LABS: Anisocytosis Present; Hypochromasia Present; Polychromasia 1+
[2023-02-27] MEDS ORDERED: SODIUM CHLORIDE 0.9% 250 ML IV PRN ×2 (19:46→20:16)
[2023-02-27] MEDS ORDERED: PANTOPRAZOLE BOLUS/DRIP IV STA (19:46)
[2023-02-27] MEDS ORDERED: FAMOTIDINE 20MG IV PUSH 20 MG/5 ML SYR IV STA (19:46)
[2023-02-27] MEDS ORDERED: PANTOprazole 80 MG in DEXTROSE 5% 100 ML IV ONE (19:46)
[2023-02-27 19:51] LABS: Albumin Globulin Ratio 0.9 (0.9-2); BUN Creatinine Ratio 18.6 (10-20); Creatinine Clr Calc Pharmacy 103.7 ml/min; Est GFR (African American) 106.2 ml/min; Est GFR (Non-African American) 91.7 ml/min; Globulin 3.5 gm/dl (2.5-4.0); Total Protein 6.7 gm/dl (6.0-8.3)
[2023-02-27 19:55] LABS: INR 1.1 (0.9-1.1); Partial Thromboplastin Ratio 0.9; Partial Thromboplastin Time 26 Seconds (21-31); Prothrombin Time 11.5 Seconds (9.0-12.0)
[2023-02-27] MEDS: PANTOprazole 40 MG in DEXTROSE 5% MINI-B 100 ML IV SCH (21:14)
--- OUTSIDE RECORDS SUMMARY | 2023-02-27 23:31 | External Medical Summary | Summary of Care ---
Author Name Unknown Organization [facility] Address [address] [place] [address] Phone [phone] Care Team Providers Care Computer Aided Design Operator Name Role Phone Bernabe Hernandze Primary Care Provi da Reason for Visit * Reason Onset Date Comments Appointment 02/20/2023 Encounter Details Date Type Department Care Team ([facility] st Contact Info) Description 02/20/2023 Telephone Care at Home [address] [place] [address] Services, Scheduling [address] [place] [address] Appointment Allergies Active Allergy Reactions Criticality Noted Date Comments Citalopram 02/01/2015 Iodinated Contrast Media 02/01/2015 Rosuvastatin 02/01/2015 Gabapentin 02/01/2015 Penicillins Edema airway,Edema face/lips/tongue High 01/31/2011 Pravastatin 02/01/2015 Simvastatin 02/01/2015 documented as of this encounter (statuses as of 02/20/2023) Medications Medication Sig Dispensed Refills Start Date End Date Status CETIRIZINE HCL 10 MG PO TABS Take one tablet daily 0 Active acetaminophen (TYLENOL) 500 MG Tablet Take 500 mg by mouth every 6 hours as needed for Pain. 0 Active Flunisolide 25 MCG/ACT (0.025%) nasal spray Administer into nostril 2 times a day. 0 05/20/2013 Active lisinopril (PRINIVIL) 5 MG Tablet Take 1 Tab by mouth daily. 0 Active metFORMIN (GLUCOPHAGE) 500 MG Tablet Take 1 Tab by mouth 2 times a day. 0 12/13/2011 Active Glucose Blood (ACCU-CHEK DEBORAH) STRP Test as directed. 0 Active albuterol (VENTOLIN HFA) 108 (90 BASE) MCG/ACT inhaler Inhale 2 Puffs by mouth every 6 hours as needed. 0 Active rosuvastatin (CRESTOR) 20 MG Tablet Take 20 mg by mouth every other day. 0 Active Budesonide-Formotero l Fumarate (SYMBICORT) 160-4.5 MCG/ACT inhaler Inhale 2 Puffs by mouth 2 times a day. 0 Active vitamin b 12 (CYANOCOBALAMIN) 1000 MCG TABS Take 1,000 mcg by mouth daily. 0 Active Vitamin D, Cholecalciferol, 1000 UNITS TABSIndications:raymond y Take 2,000 Units by mouth. Indications: daily 0 Active sertraline (ZOLOFT) 100 MG Tablet Take 200 mg by mouth daily. 0 Active aspirin 81 MG chewable tablet Take 1 Tab by mouth daily. 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 Obesity, Class II, BMI 35-39.9, isolated (see ac tual BMI) documented as of this encounter (statuses as of 02/20/2023) Social History Tobacco Use Types Packs/Day Years Used Date Smoking Tobacco: Former Cigarettes 1 40 Q uit: 04/14/1994 Smokeless Tobacco: Never Comments:no passive smoke Alcohol Use Standard Drinks/Week Comments No 0 (1 standard drink = 0.6 oz pur e alcohol) Sex and Gender Information Value Date Recorded Sex Assigned at Not on file Gender Identity Not on file Sexual Orientation Not on file documented as of this encounter Miscellaneous Notes * Telephone Encounter - [place] OSA - 02/20/2023 4:06 PM EST Care At Home Outreach Call attempt: 1st Call Call result: Call Unsuccessful - Declined enrollment Patient does not wish to complete TRAY Nugent * Telephone Encounter - [place] OSA - 02/20/2023 10:04 AM EST Care At Home Outreach Call attempt: 1st Call Call result: Call Unsuccessful - Spoke to patient/family/caregiver and instructed to call back Spoke with spouse they are at [facility]. Asked for a call back later today. Can offer offer: 02/21/23 or 02/26/23 with Maria Guadalupe Fernández PA-C Provided a call back number of [phone]. TRAY Nugent documented in this encounter Plan of Treatment Upcoming Encounters Date Type Department Care Team (Late st Contact Info) Description 02/21/2023 2:00 PM EST Home Visit Care at Home [address], [place] [id number] Maria Guadalupe Fernández PA-C [address], [place] [id number] Health Maintenance Due Date Last Done Comments COVID-19 Vaccine (#1) 01/29/1946 Pneumococcal Vaccine: 65+ Years (1 - PCV) 1952 Depression Screening 1958 Diabetic Eye Exam 1964 Diabetic Foot Exam 1964 DTaP,Tdap,and Td Vaccines (1 - Tdap) 1965 Zoster Vaccines (1 of 2) 1996 Hepatitis B (1 of 3 - Risk 3-dose series) 2006 GFR 08/02/2016 08/03/2015, 02/01/2015, 01/31/2011 *LDL AFTER STARTING A STATIN 07/16/2017 HbA1c 08/23/2020 02/23/2020 Albumin/Creatinine Ratio 02/22/2021 020, 02/23/2020 Influenza Vaccine (FLU shot) (#1) 2022 Colonoscopy Discontinued 03/29/2011 Colorectal Cancer Screening Discontinued Fecal Occult Blood Test Discontinued 11/08/2021 Cologuard Discontinued GARDASIL-HPV IMMUNIZATION SERIES Aged Out No longer eligible based on patient's age to complete this topic MENINGOCOCCAL (MENACTRA/MENVEO) Aged Out No longer eligible based on patient's age to complete this topic Sigmoidoscopy Discontinued documented as of this encounter Medical Devices Not on filedocumented as of this encounter Care Teams Computer Aided Design Operator Relationship Specialty Start Date End Date Bernabe Hernandez DO [address] [place], [place] [address]GE[place]HA whitt [id number] PCP - General Family Medicine 11/08/21 documented as of this encounter
--- OUTSIDE RECORDS SUMMARY | 2023-02-27 23:31 | External Medical Summary | Summary of Care ---
Author Name Unknown Organization [facility] Address [address] [place] [address] Phone [phone] Care Team Providers Care Voicer Name Role Phone Bernabe Hernandez Primary Care Provi da Reason for Visit * Reason Onset Date Comments Appointment 02/20/2023 Encounter Details Date Type Department Care Team ([facility] st Contact Info) Description 02/20/2023 Telephone Care at Home [address] [place] [address] Services, Scheduling [address] [place] [address] Appointment Allergies Active Allergy Reactions Criticality Noted [...] Miscellaneous Notes * Telephone Encounter - [place], TRAY - 02/20/2023 10:04 AM EST Care At Home Outreach Call attempt: 1st Call Call result: Call Unsuccessful - Spoke to patient/family/caregiver and instructed to call back Spoke with spouse they are at [facility]. Asked for a call back later today. Can offer offer: 02/21/23 or 02/26/23 with Maria Guadalupe Fernández PA-C Provided a call back number of [phone]. TRAY Nugent documented in this encounter Plan of Treatment Health Maintenance Due Date Last Done Comments [...] filedocumented as of this encounter Care Teams Voicer Relationship Specialty Start Date End Date Bernabe Hernandez DO [address] [place] [address] [place] [address] PCP - General Family Medicine 11/08/21 documented as of this encounter
[2023-02-27] MEDS ORDERED: ALBUTEROL HFA 8 GM INHALER INH PRN (23:32)
[2023-02-28] MEDS: [UNRECOGNIZED DRUG - REMARK] SCH ×4 (00:37→23:11)
[2023-02-28] MEDS: ALBUT/IPRATROP 3MG/0.5MG NEB 3 ML VIAL INH PRN (01:27)
--- NOTE | 2023-02-28 01:36 | History & Physical Report ---
Date of Service February 27, 2023 Assessment & Plan (1) Acute GI bleeding: Plan: 77yo male with history of chronic hypoxic respiratory failure secondary to ILD on 5L of O2 at baseline presenting with acute on chronic respiratory failure as well as 2 weeks of melenic stools. Patient likely with UGIB as source of melena. He did just complete a course of oral steroids, occasionally takes NSAIDs and is on a daily ASA. Hgb of 7.3 from baseline of 11.6 last checked on 01/26/23. +FOBT Patient's anemia likely greatly contributing to his acute on chronic respiratory failure and episodes of hypoxia with minimal activity. Very little pulmonary reserve. -Admit to medical with telemetry -Maintain PIV x 2 -Continue Protonix drip -Transfusion 1u PRBCs ordered - repeat H/H -GI consultation appreciated - patient is not very interested in having any procedures performed. Also, given his tenuous respiratory status it would be likely be very difficult to perform any procedures at this time. 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 He does follow with Pulmonary. CXR appears near baseline. No obvious PNA or edema. -Duonebs -Albuterol PRN -Patient on Prednisone 15mg po daily at baseline - will administer Solumedrol equivalent of 12mg IV daily while NPO -Palliative Care consultation - briefly discussed with patient and and they are in agreement with consultation -Hold in Jacki Rosado for now -Lasix 20mg IV daily (3) Hyperlipidemia: Plan: Chronic. Stable -Holding Rosuvastatin while NPO Admission and Anticipated Discharge Date Admission Date: February 27, 2023 History of Present Illness Chief Complaint: shortness of breath, weakness Primary Care Provider: Janene York PA-C Alexx Dickinson is a 77yo male with diffuse interstitial lung disease. [facility] He had a biopsy that showed UIP but this was not definitively diagnosed. He has been declined for lung transplant and is not a candidate for chronic immunosuppression given the unclear diagnosis. Patient presents today with worsening shortness of breath as well as weakness. He reports that his saturations drop into the 70's at home with the slightest movement or walking short distances like 4-5 feet. He reports stable bilateral LE edema. Additionally patient endorses 2 weeks of black, tarry bowel movements. They started out intermittent but have become fairly frequent over the last week. He denies abdominal pain or bloating, no diarrhea, no nausea or vomiting. Also denies fever, chills, chest pain, urinary complaints. He has a chronic cough which may be slightly worse than his normal. In the ER he is afebrile, HD stable. Tachypneic. Saturations adequate on his baseline 5L of supplemental O2. Hemoccult testing POSITIVE for blood ER Course: Protonix bolus and drip Pepcid 20mg IV Allergies Allergy/AdvReac Type Severity Reaction Status Date / Time Iodinated Contrast Media Allergy Intermediate Hives Verified 02/27/23 20:53 Penicillins Allergy Intermediate Rash Verified 02/27/23 20:53 Lrzkopb-LAY-LfQ Reductase AdvReac Severe SEVERE Verified 02/27/23 20:53 Inhibitor MUSCLE [Bverdkt-Mvf-Wwo Reductase ACHES Inhibitor] citalopram AdvReac Intermediate joint pain Verified 02/27/23 20:53 gabapentin AdvReac Intermediate joint pain Verified 02/27/23 20:53 Home Medications Medication Instructions Recorded Confirmed Type ascorbic acid (vitamin C) 500 mg 500 mg PO QAM 07/29/18 02/27/23 History tablet aspirin 81 mg tablet,delayed 81 mg PO QAM 07/29/18 02/27/23 History release cholecalciferol (vitamin D3) 25 2,000 unit PO QAM 07/29/18 02/27/23 History mcg (1,000 unit) tablet (Vitamin D3) ferrous sulfate 325 mg (65 mg 325 mg PO QAM 07/29/18 02/27/23 History iron) tablet Oxygen Home #1 ea 11/20/18 01/08/23 History montelukast 10 mg tablet 10 mg PO DAILY 03/11/20 02/27/23 History albuterol sulfate 90 mcg/actuation 2 puff inhalation QID PRN 02/27/23 02/27/23 History aerosol inhaler Shortness Of Breath furosemide 40 mg tablet (Lasix) 40 mg PO DAILY 02/27/23 02/27/23 History guaifenesin 200 mg tablet 200 mg PO BID PRN Cough 02/27/23 02/27/23 History ipratropium 0.5 mg-albuterol 3 mg 3 ml inhalation QID PRN Shortness 02/27/23 02/27/23 History (2.5 mg base)/3 mL nebulization Of Breath soln ipratropium bromide 21 mcg (0.03 1 spray intranasal BID 02/27/23 02/27/23 History %) nasal spray metformin 500 mg tablet 500 mg PO BIDM 02/27/23 02/27/23 History prednisone 20 mg tablet 30 mg PO DAILY 02/27/23 02/27/23 History prednisone 5 mg tablet 15 mg PO DAILY 02/27/23 02/27/23 History rosuvastatin 40 mg tablet 40 mg PO .Q3DAYS 02/27/23 02/27/23 History Past Med/Surg History Medical History Hypoxemia Chronic obstructive pulmonary disease Carcinoma of bladder COPD exacerbation Vitamin B12 deficiency Hyperlipidemia Hypertension Diabetes mellitus Bronchitis ILD (interstitial lung disease) PNA (pneumonia) Interstitial lung disease COPD (chronic obstructive pulmonary disease) CHF (congestive heart failure) Neuropathy Surgical History History of lithotripsy History of neck surgery History of partial cystectomy History of back surgery No pertinent past surgical history Family History Unknown Diabetes Stroke Coronary heart disease Other No significant family history Social History Smoking Status: Former smoker Tobacco Type: Cigarettes Second Hand Exposure: No; Do You Dip or Chew Tobacco: No; Hx Alcohol Use: No Hx Substance Use: No Preferred Language: Czech Communication Ability: Effective Supervisor Stave Cutting Required: No Beliefs That Will Affect Care: None marital status: Current Living Situation: Spouse How many Children do You have: 2 Other Information That Helps Us Care for You: No Feels Safe at Home: Yes Safety Concerns: Feels Safe At This Time Assistive Devices: Denture - Upper, Denture - Lower, Hearing Aid - Bilateral, Scooter/Electric Scooter and Wheelchair Review of Systems Review of Systems: All systems reviewed & are unremarkable except as noted in HPI & below Physical Exam Physical Exam: General: patient appears chronically ill, no distress Skin: warm, dry, intact, no rashes or lesions HEENT: NC/AT, PERRL, EOMI, anicteric sclera, conjunctiva without injection, ex ternal ear normal to inspection and nontender, nares patent, moist mucus membranes, dentition intact, no oropharyngeal lesions, neck supple, trachea midline, no LAD, no thyromegaly, no JVD Heart: +S1/S2, regular, no m/r/g Lungs: equal air entry bilaterally, diffuse crackles in bilateral lungs, rhonchi present L > R Abd: +BS, soft, NT/ND, no masses/organomegaly/ascites, no epigastric tenderness Ext: warm, 2+ pulses in UE/LE bilaterally, no clubbing/cyanosis, trace pitting edema Neuro: nonfocal, patient AA&O x 4, speech intact, no facial droop, moving all extremities on command with equal strength 5/5 Results & Data Results & Data Vital Signs (Past 12 Hours) Vital Signs Temp Pulse Pulse Resp BP BP Pulse Ox 02/28/23 00:43 99 H 30 H 129/65 95 02/28/23 00:41 30 H 129/65 92 02/28/23 00:10 98 H 32 H 140/62 93 02/28/23 00:04 37.1 C 98 H 26 H 144/66 H 95 02/27/23 23:22 93 H 36 H 132/69 98 02/27/23 22:55 36.8 C 96 H 18 130/66 96 02/27/23 22:40 36.7 C 94 H 18 125/71 95 02/27/23 22:25 36.9 C 104 H 18 134/63 96 02/27/23 22:24 98 H 22 97 02/27/23 22:24 134/63 02/27/23 22:03 100 H 20 94 02/27/23 22:03 134/68 02/27/23 22:02 36.8 C 98 H 22 134/68 96 02/27/23 22:00 136/67 02/27/23 22:00 96 H 20 96 02/27/23 21:30 105 H 19 93 02/27/23 21:30 151/65 H 02/27/23 21:00 97 H 22 97 02/27/23 21:00 142/62 H 02/27/23 20:50 99 H 22 94 02/27/23 20:50 138/66 02/27/23 20:30 98 H 22 98 02/27/23 20:00 102 H 20 95 02/27/23 20:00 143/71 H 02/27/23 19:30 91 H 24 98 02/27/23 19:30 125/68 02/27/23 19:23 125/74 02/27/23 19:23 92 H 20 99 02/27/23 19:23 95 H 22 125/74 99 02/27/23 18:17 97 H 22 98 02/27/23 18:12 101 H 02/27/23 18:11 02/27/23 18:11 36.8 C 98 H 22 172/62 H 98 02/27/23 18:11 O2 Del Method O2 Flow Rate 02/28/23 00:43 Nasal Cannula 02/28/23 00:41 02/28/23 00:10 02/28/23 00:04 6 02/27/23 23:22 6 02/27/23 22:55 Nasal Cannula 5 02/27/23 22:40 5 02/27/23 22:25 5 02/27/23 22:24 Nasal Cannula 5 02/27/23 22:24 02/27/23 22:03 5 02/27/23 22:03 02/27/23 22:02 5 02/27/23 22:00 02/27/23 22:00 5 02/27/23 21:30 5 02/27/23 21:30 02/27/23 21:00 5 02/27/23 21:00 02/27/23 20:50 5 02/27/23 20:50 02/27/23 20:30 5 02/27/23 20:00 5 02/27/23 20:00 02/27/23 19:30 5 02/27/23 19:30 02/27/23 19:23 02/27/23 19:23 5 02/27/23 19:23 Nasal Cannula 5 02/27/23 18:17 Nasal Cannula 5 02/27/23 18:12 02/27/23 18:11 Nasal Cannula 5 02/27/23 18:11 Nasal Cannula 5 02/27/23 18:11 Nasal Cannula 5 Laboratory Results Laboratory Results WBC 8.37 K/ul (4.8-10.8) 02/27/23 18:18 RBC 2.45 M/uL (4.70-6.10) L 02/27/23 18:18 Hgb 7.3 g/dl (14.0-18.0) L 02/27/23 18:18 Hct 24.6 % (42.0-52.0) L 02/27/23 18:18 MCV 100.4 fL (80.0-100.0) H 02/27/23 18:18 MCH 29.8 pg (25.0-34.0) 02/27/23 18:18 MCHC 29.7 g/dL (32.0-36.0) L 02/27/23 18:18 RDW Std Deviation 54.0 fL (36.4-46.3) H 02/27/23 18:18 RDW Coeff of Bessie 14.6 % (11.5-14.5) H 02/27/23 18:18 Plt Count 267 K/uL (130-400) 02/27/23 18:18 MPV 10.3 fL (9.4-12.4) 02/27/23 18:18 Immature Gran % (Auto) 0.6 % 02/27/23 18:18 Neut % (Auto) 71.1 % 02/27/23 18:18 Lymph % (Auto) 14.5 % 02/27/23 18:18 [place] % (Auto) 10.9 % 02/27/23 18:18 Eos % (Auto) 2.3 % 02/27/23 18:18 Baso % (Auto) 0.6 % 02/27/23 18:18 Neut # (Auto) 5.96 K/uL (1.40-6.50) 02/27/23 18:18 Lymph # (Auto) 1.21 K/uL (1.20-3.40) 02/27/23 18:18 [place] # (Auto) 0.91 K/uL (0.11-0.59) H 02/27/23 18:18 Eos # (Auto) 0.19 K/uL (0.00-0.50) 02/27/23 18:18 Baso # (Auto) 0.05 K/uL (0.00-0.20) 02/27/23 18:18 Immature Gran # (Auto) 0.05 K/uL (0.01-0.20) 02/27/23 18:18 Polychromasia 1+ 02/27/23 18:18 Hypochromasia Present 02/27/23 18:18 Anisocytosis Present 02/27/23 18:18 PT 11.5 Seconds (9.0-12.0) 02/27/23 18:18 INR 1.1 (0.9-1.1) 02/27/23 18:18 APTT 26 Seconds (21-31) 02/27/23 18:18 PTT Ratio 0.9 02/27/23 18:18 Sodium 140 mmol/L (136-145) 02/27/23 18:18 Potassium 4.1 mmol/L (3.5-5.1) 02/27/23 18:18 Chloride 105 mmol/L (98-107) 02/27/23 18:18 Carbon Dioxide 30 mmol/L (21-32) 02/27/23 18:18 Anion Gap 5 (3-11) 02/27/23 18:18 BUN 13 mg/dl (6-23) 02/27/23 18:18 Creatinine 0.70 mg/dl (0.6-1.4) 02/27/23 18:18 Est Cr Clr Drug Dosing 103.7 ml/min 02/27/23 18:18 Est GFR ( Amer) 106.2 ml/min 02/27/23 18:18 Est GFR (Non-Af Amer) 91.7 ml/min 02/27/23 18:18 BUN/Creatinine Ratio 18.6 (10-20) 02/27/23 18:18 Glucose 151 mg/dl (70-99(Fasting)) H 02/27/23 18:18 Calcium 8.3 mg/dl (8.6-10.3) L 02/27/23 18:18 Magnesium 1.8 mg/dl (1.7-2.4) 02/27/23 18:18 Total Bilirubin 0.5 mg/dl (0.2-1.0) 02/27/23 18:18 AST 17 U/L (13-39) 02/27/23 18:18 ALT 9 U/L (7-52) 02/27/23 18:18 Alkaline Phosphatase 51 U/L (34-104) 02/27/23 18:18 Troponin I High Sens 8.2 pg/ml (0-20) 02/27/23 18:18 B-Natriuretic Peptide 29 pg/ml (0-100) 02/27/23 18:18 Total Protein 6.7 gm/dl (6.0-8.3) 02/27/23 18:18 Albumin 3.2 gm/dl (3.4-5.0) L 02/27/23 18:18 Globulin 3.5 gm/dl (2.5-4.0) 02/27/23 18:18 Albumin/Globulin Ratio 0.9 (0.9-2) 02/27/23 18:18 Adenovirus (PCR) Not Detected (NotDetected) 02/27/23 18:23 B. pertussis DNA (PCR) Not Detected (NotDetected) 02/27/23 18:23 B.parapertussis DNA PCR Not Detected (NotDetected) 02/27/23 18:23 C. pneumoniae DNA (PCR) Not Detected (NotDetected) 02/27/23 18:23 Coronavirus OC43 (PCR) Not Detected (NotDetected) 02/27/23 18:23 Coronavirus HKU1 (PCR) Not Detected (NotDetected) 02/27/23 18:23 Coronavirus 229E (PCR) Not Detected (NotDetected) 02/27/23 18:23 SARS-CoV-2 (PCR) Not Detected (NotDetected) 02/27/23 18:23 Coronavirus NL63 (PCR) Not Detected (NotDetected) 02/27/23 18:23 Human Metapneumovir PCR Not Detected (NotDetected) 02/27/23 18:23 Influenza Type A (PCR) Not Detected (NotDetected) 02/27/23 18:23 Influenza Type B (PCR) Not Detected (NotDetected) 02/27/23 18:23 M. pneumoniae (PCR) Not Detected (NotDetected) 02/27/23 18:23 Parainfluenza 1 (PCR) Not Detected (NotDetected) 02/27/23 18:23 Parainfluenza 2 (PCR) Not Detected (NotDetected) 02/27/23 18:23 Parainfluenza 3 (PCR) Not Detected (NotDetected) 02/27/23 18:23 Parainfluenza 4 (PCR) Not Detected (NotDetected) 02/27/23 18:23 RSV (PCR) Not Detected (NotDetected) 02/27/23 18:23 Entero/Rhino (PCR) Not Detected (NotDetected) 02/27/23 18:23 Blood Type AB Positive 02/27/23 20:34 Antibody Screen NEGATIVE 02/27/23 20:34 Crossmatch See Detail 02/27/23 20:34 Impressions Chest X-Ray 02/27/23 18:14 XR chest 1V portable CLINICAL HISTORY: Dyspnea. COMPARISON STUDY: Chest CT September 09, 2018. Chest radiograph January 24, 2023. FINDINGS: No pneumothorax or pleural effusion is present. Cardiomediastinal silhouette is stable. Diffuse interstitial thickening is similar to chest radiograph of January 24, 2023. No superimposed consolidation is identified. IMPRESSION: No change in diffuse interstitial thickening since prior chest radiograph. This represents interstitial lung disease. No superimposed consolidation identified. ACT 112: Negative or not required by law. Electronically signed by: Nathan De La Vega M.D. 02/27/2023 6:39 PM Code Status & VTE Plan VTE Prophylaxis Plan VTE Prophylaxis will be ordered: Yes PG Care Time/CCT Total # of Minutes Spent Total Time Spent with Patient: Total time spent is greater than 50% in coordination of care (as documented) at patient's floor/unit and/or counseling patient: Coding Level of Care Code 53844 INT INP/OBS CARE 3/75MIN Diagnoses Acute GI bleeding K92.2 Acute on chronic hypoxic respiratory failure J96.21 Hyperlipidemia E78.5
[2023-02-28] MEDS: PANTOprazole 40 MG in DEXTROSE 5% MINI-B 100 ML IV SCH ×5 (01:50→22:15)
[2023-02-28] MEDS ORDERED: ACETAMINOPHEN 1,000 MG/100 ML VIAL IV PRN (05:30)
[2023-02-28 05:33] LABS: Basophils # (auto) 0.04 K/uL (0.00-0.20); Basophils % (auto) 0.5 %; Eosinophils # (auto) 0.46 K/uL (0.00-0.50); Eosinophils % (auto) 5.4 %; Hematocrit (blood only) 27.1 % (42.0-52.0); Immature Granulocytes # (auto) 0.05 K/uL (0.01-0.20); Immature Granulocytes % (auto) 0.6 %; Lymphocytes # (auto) 1.27 K/uL (1.20-3.40); Lymphocytes % (auto) 14.8 %; Mean Corpuscular Hemoglobin 29.1 pg (25.0-34.0); Mean Corpuscular Hgb Conc 29.5 g/dL (32.0-36.0); Mean Corpuscular Volume 98.5 fL (80.0-100.0); Mean Platelet Volume 10.4 fL (9.4-12.4); Monocytes # (auto) 0.75 K/uL (0.11-0.59); Monocytes % (auto) 8.7 %; Neutrophils # (auto) 6.02 K/uL (1.40-6.50); Platelet Count 212 K/uL (130-400); RDW Coefficient of Variation 16.3 % (11.5-14.5); RDW Standard Deviation 58.6 fL (36.4-46.3); Red Blood Count 2.75 M/uL (4.70-6.10); White Blood Count 8.59 K/ul (4.8-10.8)
[2023-02-28 05:50] LABS: INR 1.1 (0.9-1.1)
[2023-02-28 05:51] LABS: Albumin Globulin Ratio 0.9 (0.9-2); Albumin Level 2.8 gm/dl (3.4-5.0); BUN Creatinine Ratio 23.2 (10-20); Bilirubin,Total 2.7 mg/dl (0.2-1.0); Calcium 8.1 mg/dl (8.6-10.3); Creatinine Clr Calc Pharmacy 129.6 ml/min; Est GFR (African American) 116.4 ml/min; Est GFR (Non-African American) 100.5 ml/min; Potassium 3.7 mmol/L (3.5-5.1); Total Protein 5.8 gm/dl (6.0-8.3)
[2023-02-28] MEDS ORDERED: LORazepam 0.25 MG in SYRINGE 0.125 ML IV ONE (06:30)
--- NOTE | 2023-02-28 07:15 | XRay Report ---
XR chest 1V portable CLINICAL HISTORY: Shortness of breath. Cough. COMPARISON STUDY: Chest CT September 19, 2018 and chest radiograph February 27, 2023. FINDINGS: There is no pneumothorax or pleural effusion. Diffuse interstitial thickening is again note d. Possible superimposed consolidation within the left lower lung is present. Cardiomediastinal silho uette is stable. IMPRESSION: Diffuse interstitial thickening consistent with interstitial lung disease. Left lower brandyn g opacity. Superimposed pneumonia cannot be excluded. ACT 112: Negative or not required by law. Electronically signed by: Nathan De La Vega M.D. 02/28/2023 7:12 AM
--- NOTE | 2023-02-28 07:49 | Hospitalist Progress Note ---
Date of Service February 28, 2023 Assessment & Plan (1) Acute GI bleeding: Plan: 77yo male with history of chronic hypoxic respiratory failure secondary to ILD on 5L of O2 at baseline presenting with acute on chronic respiratory failure as well as 2 weeks of melanotic stools. Patient likely with UGIB as source of melena. He did just complete a course of oral steroids, occasionally takes NSAIDs and is on a daily ASA. Hgb of 7.3 from baseline of 11.6 last checked on 01/26/23. +FOBT, rise to 8 gms after 1 u prbc -Continue Protonix drip -Transfusion 1u PRBCs ordered - repeat H/H -GI consultation appreciated - will have anesthesia oversight regarding possible EGD (2) Acute on chronic hypoxic respiratory failure: Plan: Patient with ILD - likely UIP, however this has not been formally confirmed. He does follow with Pulmonary. CXR appears near baseline. No obvious PNA or edema. -Duonebs -Albuterol PRN -Patient on Prednisone 15mg po daily at baseline - will administer Solumedrol equivalent of 12mg IV daily despite possible contribution to ugi bleed Respiratory biofire negative -Palliative Care consultation - briefly discussed with patient and and they are in agreement with consultation -Hold in Jacki Rosado for now -Lasix 20mg IV daily (3) Hyperlipidemia: Plan: Chronic. Stable -Holding Rosuvastatin Plan incidentally noted isolated elevated bili, ? gilberts, doubt hemolysis DNR DVT prevention is scd Admission and Anticipated Discharge Date Admission Date: February 27, 2023 Subjective Patient is pleasant has improvement in his shortness of breath after transfusion although not been ambulating significantly. Discussed case with palliative care they referred to me that the patient likely may transition to palliative care after discharge. Discussed case with gastroenterology they will pursue endoscopy to look to see if there is interventions to help reduce any possible upper GI bleeding source. Physical Exam Physical Exam: Awake alert appropriate. Slightly short of breath at rest. Short of breath when speaking Patient is lung exam is markedly abnormal with rales heard in all lung dunbar and decreased breath sounds left side greater than right at the base Card exam is distant regular systolic murmur Results & Data Results & Data Vital Signs (Past 12 Hours) Vital Signs Temp Pulse Pulse Resp BP BP Pulse Ox 02/28/23 07:19 02/28/23 07:06 103 H 02/28/23 05:53 98.8 F 102 H 27 H 145/72 H 94 02/28/23 04:33 101 H 26 H 141/67 H 96 02/28/23 03:00 02/28/23 02:56 101 H 25 H 123/60 95 02/28/23 02:23 98 H 02/28/23 00:43 99 H 30 H 129/65 95 02/28/23 00:41 30 H 129/65 92 02/28/23 00:10 98 H 32 H 140/62 93 02/28/23 00:04 98.8 F 98 H 26 H 144/66 H 95 02/27/23 23:22 93 H 36 H 132/69 98 02/27/23 22:55 98.2 F 96 H 18 130/66 96 02/27/23 22:40 98.1 F 94 H 18 125/71 95 02/27/23 22:25 98.4 F 104 H 18 134/63 96 02/27/23 22:24 98 H 22 97 02/27/23 22:24 134/63 02/27/23 22:03 100 H 20 94 02/27/23 22:03 134/68 02/27/23 22:02 98.2 F 98 H 22 134/68 96 02/27/23 22:00 136/67 02/27/23 22:00 96 H 20 96 02/27/23 21:30 105 H 19 93 02/27/23 21:30 151/65 H 02/27/23 21:00 97 H 22 97 02/27/23 21:00 142/62 H 02/27/23 20:50 99 H 22 94 02/27/23 20:50 138/66 02/27/23 20:30 98 H 22 98 02/27/23 20:00 102 H 20 95 02/27/23 20:00 143/71 H Pulse Ox O2 Del Method O2 Del Method O2 Flow Rate O2 Flow Rate 02/28/23 07:19 94 Nasal Cannula 6 02/28/23 07:06 02/28/23 05:53 Nasal Cannula 7 02/28/23 04:33 Nasal Cannula 02/28/23 03:00 Nasal Cannula 02/28/23 02:56 Nasal Cannula 02/28/23 02:23 02/28/23 00:43 Nasal Cannula 02/28/23 00:41 02/28/23 00:10 02/28/23 00:04 6 02/27/23 23:22 6 02/27/23 22:55 Nasal Cannula 5 02/27/23 22:40 5 02/27/23 22:25 5 02/27/23 22:24 Nasal Cannula 5 02/27/23 22:24 02/27/23 22:03 5 02/27/23 22:03 02/27/23 22:02 5 02/27/23 22:00 02/27/23 22:00 5 02/27/23 21:30 5 02/27/23 21:30 02/27/23 21:00 5 02/27/23 21:00 02/27/23 20:50 5 02/27/23 20:50 02/27/23 20:30 5 02/27/23 20:00 5 02/27/23 20:00 Laboratory Results Reviewed CBC reviewed chemistry Personally discussed case with GI consultants on duty Discussed case with palliative medicine PG Care Time/CCT Total # of Minutes Spent Total Time Spent with Patient: Total time spent is greater than 50% in coordination of care (as documented) at patient's floor/unit and/or counseling patient: Coding Level of Care Code 08080 SUB INP/OBS CARE 2/35MIN Diagnoses Acute GI bleeding K92.2 Acute on chronic hypoxic respiratory failure J96.21 Hyperlipidemia E78.5
--- NOTE | 2023-02-28 08:23 | Anesthesiology Consultation ---
Date of Service February 28, 2023 Assessment & Plan Chart Review Chart Review: Acceptable Risk for Surgery and Patient NOT seen in Pre Admission Testing Consults Requested none ASA [id number] Proposed Anesthesia Anesthesia Type: MAC History Height/Weight Height: 5 ft 10 in Weight: 95.4 kg Allergies Allergy/AdvReac Type Severity Reaction Status Date / Time Iodinated Contrast Media Allergy Intermediate Hives Verified 02/27/23 20:53 Penicillins Allergy Intermediate Rash Verified 02/27/23 20:53 Pzvbptg-UAE-WvT Reductase AdvReac Severe SEVERE Verified 02/27/23 20:53 Inhibitor MUSCLE [Enhdnbn-Uuo-Hhf Reductase ACHES Inhibitor] citalopram AdvReac Intermediate joint pain Verified 02/27/23 20:53 gabapentin AdvReac Intermediate joint pain Verified 02/27/23 20:53 Medications Home Medications Medication Instructions Recorded Confirmed Last Taken ascorbic acid (vitamin C) 500 mg 500 mg PO QAM 07/29/18 02/27/23 02/27/23 tablet aspirin 81 mg tablet,delayed 81 mg PO QAM 07/29/18 02/27/23 02/27/23 release cholecalciferol (vitamin D3) 25 2,000 unit PO QAM 07/29/18 02/27/23 02/27/23 mcg (1,000 unit) tablet (Vitamin D3) ferrous sulfate 325 mg (65 mg 325 mg PO QAM 07/29/18 02/27/23 02/27/23 iron) tablet Oxygen Home #1 ea 11/20/18 01/08/23 Unknown montelukast 10 mg tablet 10 mg PO DAILY 03/11/20 02/27/23 02/27/23 albuterol sulfate 90 mcg/actuation 2 puff inhalation QID PRN 02/27/23 02/27/23 Unknown aerosol inhaler Shortness Of Breath furosemide 40 mg tablet (Lasix) 40 mg PO DAILY 02/27/23 02/27/23 02/27/23 guaifenesin 200 mg tablet 200 mg PO BID PRN Cough 02/27/23 02/27/23 Unknown ipratropium 0.5 mg-albuterol 3 mg 3 ml inhalation QID PRN Shortness 02/27/23 02/27/23 Unknown (2.5 mg base)/3 mL nebulization Of Breath soln ipratropium bromide 21 mcg (0.03 1 spray intranasal BID 02/27/23 02/27/23 02/27/23 08:00 %) nasal spray metformin 500 mg tablet 500 mg PO BIDM 02/27/23 02/27/23 02/27/23 prednisone 20 mg tablet 30 mg PO DAILY 02/27/23 02/27/23 02/27/23 prednisone 5 mg tablet 15 mg PO DAILY 02/27/23 02/27/23 02/27/23 rosuvastatin 40 mg tablet 40 mg PO .Q3DAYS 02/27/23 02/27/23 Unknown Active Medications Generic Name Dose Route Start Last Admin Trade Name Freq PRN Reason Stop Dose Admin Albuterol 3 ml 02/27/23 23:32 02/28/23 01:27 Albut/Ipratrop 3mg/0.5mg Neb 3 Ml Vial INH 03/29/23 23:31 3 ml QID PRN Administration Shortness Of Breath Protocol Pantoprazole Sodium 40 mg/ 100 mls @ 20 mls/hr 02/27/23 20:15 02/28/23 01:50 Dextrose IV 03/29/23 20:14 8 mg/hr Q5H CARA 20 mls/hr Administration 8 MG/HR Acetaminophen 1,000 mg in 100 mls @ 400 mls/hr 02/28/23 05:30 02/28/23 06:40 Ofirmev IV 03/03/23 05:29 Infused Q8H PRN Infusion pain/fever Miscellaneous 1 each 02/28/23 00:00 02/28/23 00:37 Order Awaiting Action: Ipratropium [facility] 21 Mcg (0.03 %) [place] N/A 03/30/23 00:00 Not Given QS CARA Past Medical History Medical History Hypoxemia Chronic obstructive pulmonary disease Carcinoma of bladder COPD exacerbation Vitamin B12 deficiency Hyperlipidemia Hypertension Diabetes mellitus Bronchitis ILD (interstitial lung disease) PNA (pneumonia) Interstitial lung disease COPD (chronic obstructive pulmonary disease) CHF (congestive heart failure) Neuropathy anemia GI Bleed Exercise / Class Metabolic Activity III < 4 Walking/Shop/Light housework Past Family History Family History Unknown Diabetes Stroke Coronary heart disease Other No significant family history Past Surgical History Surgical History History of lithotripsy History of neck surgery History of partial cystectomy History of back surgery No pertinent past surgical history Past Anesthesia History No Hx of Anesthesia Complications and No Family Hx of Anesthesia Complications History of PONV No Hx of PONV and No Hx of Motion Sickness Social History Smoking Status: Former smoker tobacco type: cigarettes Do You Dip or Chew Tobacco: No Hx Alcohol Use: No Hx Substance Use: No Physical Exam Vital Signs Last Vital Signs Temp 37.1 C 02/28/23 05:53 Pulse 103 H 02/28/23 07:06 Resp 27 H 02/28/23 05:53 BP 145/72 H 02/28/23 05:53 Pulse Ox 94 02/28/23 07:19 O2 Del Method Nasal Cannula 02/28/23 07:19 O2 Flow Rate 6 02/28/23 07:19 Testing Laboratory Results 02/28/23 04:00 02/28/23 04:00 PT 12.0 Seconds (9.0-12.0) 02/28/23 04:00 INR 1.1 (0.9-1.1) 02/28/23 04:00 APTT 26 Seconds (21-31) 02/27/23 18:18 Blood Type AB Positive 02/27/23 20:34 Antibody Screen NEGATIVE 02/27/23 20:34 Electrocardiogram Date: 03/06/23 Findings: + ST @ (@ 104) Chest X-Ray Date: 02/28/23 Findings: + infiltrate (LLL) and + other (C/W interstitial lung disease) Echocardiogram Date: 10/30/18 EF: 55% LV Function: normal RWMA: + none Other Findings: + atrial enlargement (RA/LA-mildly enlarged), + RVH (RV mildly enlarged) and + LVH (mild) Pulmonary Function Test Date: 09/10/18 Findings: + other (severe restrictive lung defect)
--- NOTE | 2023-02-28 08:27 | Gastrointestinal Consultation ---
Date of Consultation February 28, 2023 Assessment & Plan (1) Severe anemia: (2) SOB (shortness of breath): (3) ILD (interstitial lung disease): (4) Cirrhosis: (5) Melena: Pt is a 77 yo male w hx of ILD on chronic O2 and Prednisone presented with symptoms of increased SOB, noted have worsening anemia w reports of melena x 2 weeks. Hx of suspected fatty liver cirrhosis (MELD 11) w normal Plt and INR, intermittent NSAIDs use and on Prednisone 15mg + ASA 81mg daily. No known hx of esophageal varices, + hx of gastritis on last EGD in 2015. - Keep NPO - Monitor blood ct and transfuse if Hgb <8 - PPI gtt - Octreotide bolus and gtt - Ceftriaxone 1g IV daily (discussed with pharmacy, pt does have PCN allergy but tolerated cephalosporins before) - Discussed indication for EGD evaluation, but pt refused to have this procedure done and prefer watchful monitoring and conservative management at this time - Will continue to follow along ADDENDUM: Pt agreeable to have EGD done when we saw him during afternoon rounds. Will schedule this for tomorrow 03/[address] Mendez who resumes coverage for [facility] GI Supervising Physician Co-Signing Physician Notes I personally saw and evaluated the patient on 02/28/2023 with FRANTZ Kaufman and agree with her findings and plan of care. 77 y/o M with history of ILD on chronic O2 4-5 L at baseline and chronic prednisone, compensated MAGALLON cirrhosis following with [facility] admitted with black stools for the past 2 weeks and shortness of breath. On admission found to have a hgb of 7./3 from baseline of 11 (last 11.6 last month). He denies any hematemesis, coffee ground emesis, or hematochezia. States stools are black and sticky for 2 weeks. Last EGD in 2016 without any varices. We had recommended an EGD this AM and tried to perform that but patient initially refused stating that he did not want any procedures done. I spoke with him again this afternoon and he states he is now agreeable if we feel he needs it. Will plan for EGD tomorrow for further evaluation. NPO at midnight. Can have clears today. Trend H/H and transfuse for hgb <7. IV PPI gtt, IV octreotide gtt, and IV ceftriaxone for SBP prophylaxis (if unable to tolerate this due to ? rash can use PO cipro). My suspicion for any variceal bleeding is very low as his BUN is normal, he has had bleeding for the past 2 weeks, and he is currently hemodynamically stable. Dinorah Bansal DO Gastroenterology and Hepatology History of Present Illness Reason for Consultation: UGI Bleed Requesting Physician: Dr. Bob Oliva Attending Physician: Dr. Dinorah Bansal History of Present Illness Patient is a 75 years old male with history of interstitial lung disease on chronic prednisone, history of pneumonia, pneumothorax, hyperlipidemia, hypertension, diabetes mellitus, CHF, anemia, cirrhosis? Fatty liver induced who presented to the ED with complaints of shortness of breath and weakness. Denies any fevers or chills, chest pain. He is on chronic O2 per nasal cannula 5 L daily but O2 sat will drop in the 70s at home with ambulation. Had previously been evaluated for lung transplant but not deemed to be a good candidate, given his advanced age per patient's report. Upon evaluation he was noted to be anemic with hemoglobin of 8, baseline usually around 11. He reports that he has been having black, tarry stools for about 2 weeks. Denies any abdominal pain, nausea or vomiting. He is on aspirin 81 mg daily, no anticoagulant. Platelet count and INR are normal. Been taking NSAIDs intermittently per HPI report however he denies this for me today. He is on ferrous sulfate 325 mg daily, denies Pepto-Bismol use is. Hemoccult test is positive for blood. Patient does have history of liver cirrhosis per imaging studies, had EUS guided liver biopsy done in 2015 which showed no significant fibrosis at that time however noted that the biopsy sample was quite small. Had colonoscopy in 2011 that showed diverticulosis left side of the colon. EGD in 2014 2015 showed signs of gastritis. Patient denies any known history of esophageal varices or PUD. Of noted, he had hx of bladder ca s/p sofi-bladder formation. He is having trouble urinating, having pelvic discomfort and bladder scan this AM w 400mL urine residual. Pt had been refusing cath per RN. Allergies Allergy/AdvReac Type Severity Reaction Status Date / Time Iodinated Contrast Media Allergy Intermediate Hives Verified 02/27/23 20:53 Penicillins Allergy Intermediate Rash Verified 02/27/23 20:53 Paosjqi-IDB-QyY Reductase AdvReac Severe SEVERE Verified 02/27/23 20:53 Inhibitor MUSCLE [Kgezjya-Ecs-Uak Reductase ACHES Inhibitor] citalopram AdvReac Intermediate joint pain Verified 02/27/23 20:53 gabapentin AdvReac Intermediate joint pain Verified 02/27/23 20:53 Home Medications Medication Instructions Recorded Confirmed Type ascorbic acid (vitamin C) 500 mg 500 mg PO QAM 07/29/18 02/27/23 History tablet aspirin 81 mg tablet,delayed 81 mg PO QAM 07/29/18 02/27/23 History release cholecalciferol (vitamin D3) 25 2,000 unit PO QAM 07/29/18 02/27/23 History mcg (1,000 unit) tablet (Vitamin D3) ferrous sulfate 325 mg (65 mg 325 mg PO QAM 07/29/18 02/27/23 History iron) tablet Oxygen Home #1 ea 11/20/18 01/08/23 History montelukast 10 mg tablet 10 mg PO DAILY 03/11/20 02/27/23 History albuterol sulfate 90 mcg/actuation 2 puff inhalation QID PRN 02/27/23 02/27/23 History aerosol inhaler Shortness Of Breath furosemide 40 mg tablet (Lasix) 40 mg PO DAILY 02/27/23 02/27/23 History guaifenesin 200 mg tablet 200 mg PO BID PRN Cough 02/27/23 02/27/23 History ipratropium 0.5 mg-albuterol 3 mg 3 ml inhalation QID PRN Shortness 02/27/23 02/27/23 History (2.5 mg base)/3 mL nebulization Of Breath soln ipratropium bromide 21 mcg (0.03 1 spray intranasal BID 02/27/23 02/27/23 His tory %) nasal spray metformin 500 mg tablet 500 mg PO BIDM 02/27/23 02/27/23 History prednisone 20 mg tablet 30 mg PO DAILY 02/27/23 02/27/23 History prednisone 5 mg tablet 15 mg PO DAILY 02/27/23 02/27/23 History rosuvastatin 40 mg tablet 40 mg PO .Q3DAYS 02/27/23 02/27/23 History Patient History Medical History (Updated 02/28/23 @ 10:09 by FRANTZ David) Hypoxemia Chronic obstructive pulmonary disease Carcinoma of bladder COPD exacerbation Vitamin B12 deficiency Hyperlipidemia Hypertension Diabetes mellitus Bronchitis ILD (interstitial lung disease) PNA (pneumonia) Interstitial lung disease COPD (chronic obstructive pulmonary disease) CHF (congestive heart failure) Neuropathy Surgical History History of lithotripsy History of neck surgery History of partial cystectomy History of back surgery No pertinent past surgical history Family History Unknown Diabetes Stroke Coronary heart disease Other No significant family history Social History Smoking Status: Former smoker Tobacco Type: Cigarettes Second Hand Exposure: No; Do You Dip or Chew Tobacco: No; Hx Alcohol Use: No Hx Substance Use: No Preferred Language: Romansh Communication Ability: Effective Biometric Screener Required: No Beliefs That Will Affect Care: None marital status: Current Living Situation: Spouse How many Children do You have: 2 Other Information That Helps Us Care for You: No Feels Safe at Home: Yes Safety Concerns: Feels Safe At This Time Assistive Devices: Denture - Upper, Denture - Lower, Hearing Aid - Bilateral, Scooter/Electric Scooter and Wheelchair Review of Systems Review of Systems: All systems reviewed & are unremarkable except as noted in HPI & below Physical Exam Constitutional: WD/WN, vitals as above well groomed, cooperative and comfortable Eyes: PERRL, conjunctivae normal, anicteric sclerae ENMT: external ear and nose normal, oropharynx normal Respiratory: + accessory muscles used, tachypneic. Di minished overall lung sounds Cardiovascular: RRR, no murmur, no edema Gastrointestinal (Abdomen): normal bowel sounds, soft, nontender, no hepatosplenomegaly Skin: no rashes, warm and dry no jaundice Psychiatric: A+Ox3, euthymic affect Lymphatic: no lymphedema Results & Data Vital Signs (Past 12 Hours) Vital Signs Temp Pulse Pulse Resp BP BP Pulse Ox 02/28/23 07:19 02/28/23 07:06 103 H 02/28/23 05:53 37.1 C 102 H 27 H 145/72 H 94 02/28/23 04:33 101 H 26 H 141/67 H 96 02/28/23 03:00 02/28/23 02:56 101 H 25 H 123/60 95 02/28/23 02:23 98 H 02/28/23 00:43 99 H 30 H 129/65 95 02/28/23 00:41 30 H 129/65 92 02/28/23 00:10 98 H 32 H 140/62 93 02/28/23 00:04 37.1 C 98 H 26 H 144/66 H 95 02/27/23 23:22 93 H 36 H 132/69 98 02/27/23 22:55 36.8 C 96 H 18 130/66 96 02/27/23 22:40 36.7 C 94 H 18 125/71 95 02/27/23 22:25 36.9 C 104 H 18 134/63 96 02/27/23 22:24 98 H 22 97 02/27/23 22:24 134/63 02/27/23 22:03 100 H 20 94 02/27/23 22:03 134/68 02/27/23 22:02 36.8 C 98 H 22 134/68 96 02/27/23 22:00 136/67 02/27/23 22:00 96 H 20 96 02/27/23 21:30 105 H 19 93 02/27/23 21:30 151/65 H 02/27/23 21:00 97 H 22 97 02/27/23 21:00 142/62 H 02/27/23 20:50 99 H 22 94 02/27/23 20:50 138/66 02/27/23 20:30 98 H 22 98 Pulse Ox O2 Del Method O2 Del Method O2 Flow Rate O2 Flow Rate 02/28/23 07:19 94 Nasal Cannula 6 02/28/23 07:06 02/28/23 05:53 Nasal Cannula 7 02/28/23 04:33 Nasal Cannula 02/28/23 03:00 Nasal Cannula 02/28/23 02:56 Nasal Cannula 02/28/23 02:23 02/28/23 00:43 Nasal Cannula 02/28/23 00:41 02/28/23 00:10 02/28/23 00:04 6 02/27/23 23:22 6 02/27/23 22:55 Nasal Cannula 5 02/27/23 22:40 5 02/27/23 22:25 5 02/27/23 22:24 Nasal Cannula 5 02/27/23 22:24 02/27/23 22:03 5 02/27/23 22:03 02/27/23 22:02 5 02/27/23 22:00 02/27/23 22:00 5 02/27/23 21:30 5 02/27/23 21:30 02/27/23 21:00 5 02/27/23 21:00 02/27/23 20:50 5 02/27/23 20:50 02/27/23 20:30 5
[2023-02-28] MEDS: METHYLPREDNISOLONE IV SCH (08:43)
[2023-02-28] MEDS: FUROSEMIDE INJ 20 MG/2 ML VIAL IV SCH (08:43)
[2023-02-28] MEDS ORDERED: STAT IV/IM STA (09:13)
[2023-02-28] MEDS ORDERED: OCTREOTIDE ACETATE 50 MCG in SYRINGE 9.5 ML IV ONE (09:30)
--- NOTE | 2023-02-28 09:59 | Palliative Care Consultation ---
Date of Consultation February 28, 2023 Assessment & Plan (1) Dyspnea and respiratory abnormalities: low dose opioid ordered (2) Anxiety: (3) Generalized weakness: (4) Advanced care planning/counseling discussion: Met with pt face to face x 45min for ACP discussion at bedside. He has agreed to EGD tomorrow. He says he hopes to leave here and return home with hospice and would like initiation of the [place] home based pall care ([facility]PC) program. He states his physical needs are more than can handle. He doesnt want any aggressive or escalating care. Also he added that if he worsens thru his admission, he wants to be moved to comfort care only. He told me that he told his he doesnt believe he will survive this admission. 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 He was repeatedly directly exposed to [place] and this is believed to be the origin of his lung disease. He is open to hospice at home, adding he would accept any help that would allow him to remain home and reduce care burden on his for whom he believes his physical care has now become burdensome and he became very tearful and emotional as he spoke about the hardship he feels being at home is creating for his though he also notes she has never said anything to him about this being too hard for her to manage. He struggles with the feelings of guilt that he is overburdening his caregiver. We spoke about the nature of ILD, sand how as fibrosis advances and lung function deteriorates, patients experience a progressive increase in shortness of breath, cough and fatigue. These symptoms are distressing to patients and family caregivers and present a challenge in maintaining quality of life as the disease relentlessly progresses. Despite the fatal prognosis, patients and caregivers often fail to understand the poor prognosis. (Mayur CHRISTINE, Nano E, Christopher M, et al. Impact of a disease-management program on symptom burden and health-related quality of life in patients with idiopathic pulmonary fibrosis and their care partners. Heart Lung J Acute Crit Care. 2010;39(4):606550 and David Munugia, Roque Vidal. Interstitial lung disease original article: a qualitative study of informal caregivers perspectives on the effects of idiopathic pulmonary fibrosis. BMJ Open Resp Res. 2014:1.) (5) Encounter for hospice care discussion: We discussed the goals of hospice as a patient service and the goals of care; we discussed EOL trajectories and transitions susie the emotional impact of realizing mortality as a concrete reality from prior abstract considerations. Pt was reassured that no matter where they are along this trajectory, they are not alone - their medical team will remain by their side through their journey. Discussed the pros/cons of accepting help when especially weakened and distressed by pain-which would also help provide relief/decrease caregiver burden/strain. I provided education about the hospice benefit: an interdisciplinary program offered by nurses, nurses aides, social workers, chaplains and a rn medical surgical for patients with a terminal condition and a life expectancy of less than 6 months. This is covered by Medicare at 100%/no out of pocket expense to patient and all meds/supplies needed by patient for the reason they are on hospice are paid for/covered by hospice. The goal is assure quality of life of the patient in their home setting (home, group home, inpatient hospice setting) by providing symptoms management, psychosocial and spiritual support. However, they cannot offer 24 hours care and if the family is unable to provide that care, they will have to consider personal care with out of pocket cost vs. group home placement. We discussed the goals of hospice as a patient service and the goals of care; we discussed EOL trajectories and transitions susie the emotional impact of realizing mortality as a concrete reality from prior abstract considerations. Pt was reassured that no matter where they are along this trajectory, they are not alone - their medical team will remain by their side through their journey. Discussed the pros/cons of accepting help when especially weakened and distressed by pain-which would also help provide relief/decrease caregiver burden/strain. (6) Palliative care by specialist: Met with pt/no family present. Provided overview of Palliative Medicine, a subspecialty that provides specialized medical care for people living with a serious illness by offering a focus on quality of life. Palliative Medicine is often conflated with hospice: I advised patient/family that Palliative and hospice can be partners but we are not the same. It is important to understand the difference so that we may be informed, and not afraid. Palliative Medicine works to improve QOL through reduction of symptom burden/more control over their illness, for both the patient and family. Palliative medicine clinicians are board certified, specially-trained and another member of the patient's medical care team. We often provide an extra layer of support because our care is based on the needs of the patient, not the prognosis; as such, it's appropriate at any age/advancing stage of a serious illness and can be provided along with curative treatment. Palliative Medicine clinicians are also trained in advanced communication methodologies, to facilitate complex discussions about advanced illness planning, which are needed to help assure that the treatment choices match the patient's goals, aka delivering Goal Concordant care. Finally, we discussed that hospice is a visiting nurse service that focuses on care delivered at the very end of life for patients with terminal illness, with life expectancy less than 6 month. 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 * [place] [facility] briefly discussed and pt advised facilities may not be convenient/local but still worth looking into since he is fully service connected. Thank you for allowing us to participate in the ongoing care of this patient. Please don't hesitate to call or page with any additional concerns. Dr. Susan Horner DNP Director, Palliative Care History of Present Illness Reason for Consultation: ILD, GIB Attending Physician: Bob Oliva MD History of Present Illness Patient is a 77yo male with GIB and +diffuse interstitial lung disease, 5L of O2 at baseline presenting with acute on chronic respiratory failure as well as 2 weeks of melenic stools. Patient likely with UGIB as source of melena. He reports a worsening dyspnea and fatigue His beginning to feel the increased symptom burden of his illness He did just complete a course of oral steroids, occasionally takes NSAIDs and is on a daily ASA. Hgb of 7.3 from baseline of 11.6 last checked on 01/26/23. +FOBT Patient does not want a trial of either OFEV or Esbriet. He has been declined by multiple centers for lung txp[facility]24[facility]21 states: Biopsy showed possible findings consistent with UIP but the sample size was small enough that definitive diagnosis was not provided. He never underwent surgical biopsy. The radiographic pattern is not entirely consistent with IPF however this is not excluded. Other diagnoses such as hypersensitivity pneumonitis would be on the list as well. No granulomatous inflammation was identified on the patient's biopsy. He has been declined by to facilities for lung transplant. He is not a candidate for chronic immunosuppression given the unclear diagnosis. He is done reasonably well over the last 6 months. Recommendations: 1. Interstitial lung disease: As per my previous notes, would not recommend additional evaluation or therapy at this point time. The patient has engaged with palliative care and has home hospice ready to be set up in the event that he clinically deteriorates. He is doing reasonably well clinically so I think continued clinical observation is reasonable at this point time. Chart review indicates pt met with [facility] at the [facility]. Pulm clinic note 09/02/2019 states: CT scan of the chest done January 2016 showed diffuse interstitial and ground-glass changes with some associated bronchiectasis involving upper and lower lobes. Rheumatologic workup was unremarkable. In February 2016 he underwent rigid bronchoscopy with cryoprobe tissue biopsy of the right lower lobe. The procedure was complicated by a small right pneumothorax treated briefly with chest tube. Tissue and imaging were felt to be suggestive of UIP however a definitive diagnosis was not made. Bronchial washings showed Aspergillus Niger. The patient for a period of time was following with [facility] [place]. He underwent stem cell transplant. He indicated he was not going back there for any further care as he did not feel that it helped. The patient previously underwent pulmonary rehabilitation in 2018. He is on oxygen typically at 4 liters. I was able to review a CT scan of the chest the patient had done through the [facility] on 09/09/2018. This showed evidence of fairly diffuse interstitial lung disease. The report indicated there was no progression compared with prior study done 06/07/2016. Pulmonary function test done at [facility] 09/10/2018 showed a moderate restrictive pattern. The forced vital capacity was 50 percent predicted. The FEV1 was 62 percent predicted. Diffusion was 50 percent predicted. Repeat study done following bronchodilator showed improvement in mid flow rates only. Overall there was mild improvement compared with 10/04/2017. Allergies Allergy/AdvReac Type Severity Reaction Status Date / Time Iodinated Contrast Media Allergy Intermediate Hives Verified 02/27/23 20:53 Penicillins Allergy Intermediate Rash Verified 02/27/23 20:53 Ybqldtr-TRG-IwA Reductase AdvReac Severe SEVERE Verified 02/27/23 20:53 Inhibitor MUSCLE [Wposkxn-Jng-Ash Reductase ACHES Inhibitor] citalopram AdvReac Intermediate joint pain Verified 02/27/23 20:53 gabapentin AdvReac Intermediate joint pain Verified 02/27/23 20:53 Home Medications Medication Instructions Recorded Confirmed Type ascorbic acid (vitamin C) 500 mg 500 mg PO QAM 07/29/18 02/27/23 History tablet aspirin 81 mg tablet,delayed 81 mg PO QAM 07/29/18 02/27/23 History release cholecalciferol (vitamin D3) 25 2,000 unit PO QAM 07/29/18 02/27/23 History mcg (1,000 unit) tablet (Vitamin D3) ferrous sulfate 325 mg (65 mg 325 mg PO QAM 07/29/18 02/27/23 History iron) tablet Oxygen Home #1 ea 11/20/18 01/08/23 History montelukast 10 mg tablet 10 mg PO DAILY 03/11/20 02/27/23 History albuterol sulfate 90 mcg/actuation 2 puff inhalation QID PRN 02/27/23 02/27/23 History aerosol inhaler Shortness Of Breath furosemide 40 mg tablet (Lasix) 40 mg PO DAILY 02/27/23 02/27/23 History guaifenesin 200 mg tablet 200 mg PO BID PRN Cough 02/27/23 02/27/23 History ipratropium 0.5 mg-albuterol 3 mg 3 ml inhalation QID PRN Shortness 02/27/23 02/27/23 History (2.5 mg base)/3 mL nebulization Of Breath soln ipratropium bromide 21 mcg (0.03 1 spray intranasal BID 02/27/23 02/27/23 History %) nasal spray metformin 500 mg tablet 500 mg PO BIDM 02/27/23 02/27/23 History prednisone 20 mg tablet 30 mg PO DAILY 02/27/23 02/27/23 History prednisone 5 mg tablet 15 mg PO DAILY 02/27/23 02/27/23 History rosuvastatin 40 mg tablet 40 mg PO .Q3DAYS 02/27/23 02/27/23 History Patient History Medical History (Updated 02/28/23 @ 14:20 by Susan Horner DNP) Hypoxemia Chronic obstructive pulmonary disease Carcinoma of bladder COPD exacerbation Vitamin B12 deficiency Hyperlipidemia Hypertension Diabetes mellitus Bronchitis ILD (interstitial lung disease) 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, 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 + Airborne PNA (pneumonia) Interstitial lung disease COPD (chronic obstructive pulmonary disease) CHF (congestive heart failure) Neuropathy Surgical History History of lithotripsy History of neck surgery History of partial cystectomy History of back surgery No pertinent past surgical history Family History Unknown Diabetes Stroke Coronary heart disease Other No significant family history Social History Smoking Status: Former smoker Tobacco Type: Cigarettes Second Hand Exposure: No; Do You Dip or Chew Tobacco: No; Hx Alcohol Use: No Hx Substance Use: No Preferred Language: Kiswahili Communication Ability: Effective Data 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 Iot 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 Required: No Beliefs That Will Affect Care: None marital status: Current Living Situation: Spouse How many Children do You have: 2 Other Information That Helps Us Care for You: No Feels Safe at Home: Yes Safety Concerns: Feels Safe At This Time Assistive Devices: Oxygen - Continuous, Walker and Wheelchair Review of Systems Review of Systems: All systems reviewed & are unremarkable except as noted in Subjective Physical Exam Constitutional: + acute distress, + ill appearing, + thi n, + frail appearing, cooperative and + diaphoretic Eyes: PERRL, conjunctivae normal, anicteric sclerae ENMT: external ear and nose normal, oropharynx normal Mouth: + dry oral mucous membranes Neck: trachea midline, no thyromegaly normal visual inspection Respiratory: + respiratory distress, + labored breath ing, + uses accessory muscles, + cough (dry), + pursed lip breathing and symmetric chest movement Auscultation: + diminished lung sounds and + crackles (velcro crackles bilaterally) Cardiovascular: tachy s1 s2 Gastrointestinal (Abdomen): normal bowel sounds, soft, nontender, no hepatosplenomegaly Musculoskeletal: generalized weakness Skin: pale, cool. mild cyanotic changes Neurologic: AAOx3 Psychiatric: A+Ox3, euthymic affect Apperance: appropriately dressed, appropriately groomed and appeared stated age Eye Contact: good eye contact Speech: normal rate/rhythm/volume of speech Affect: + anxious affect and + tearful affect Mood: + anxious mood Thought Process: goal directed thought process and clear/coherent thought process Insight: excellent insight Judgment: excellent judgement Results & Data Vital Signs (Past 12 Hours) Vital Signs Temp Pulse Pulse Resp BP BP Pulse Ox 02/28/23 07:19 02/28/23 07:06 103 H 02/28/23 05:53 37.1 C 102 H 27 H 145/72 H 94 02/28/23 04:33 101 H 26 H 141/67 H 96 02/28/23 03:00 02/28/23 02:56 101 H 25 H 123/60 95 02/28/23 02:23 98 H 02/28/23 00:43 99 H 30 H 129/65 95 02/28/23 00:41 30 H 129/65 92 02/28/23 00:10 98 H 32 H 140/62 93 02/28/23 00:04 37.1 C 98 H 26 H 144/66 H 95 02/27/23 23:22 93 H 36 H 132/69 98 02/27/23 22:55 36.8 C 96 H 18 130/66 96 02/27/23 22:40 36.7 C 94 H 18 125/71 95 02/27/23 22:25 36.9 C 104 H 18 134/63 96 02/27/23 22:24 98 H 22 97 02/27/23 22:24 134/63 02/27/23 22:03 100 H 20 94 02/27/23 22:03 134/68 02/27/23 22:02 36.8 C 98 H 22 134/68 96 02/27/23 22:00 136/67 02/27/23 22:00 96 H 20 96 Pulse Ox O2 Del Method O2 Del Method O2 Flow Rate O2 Flow Rate 02/28/23 07:19 94 Nasal Cannula 6 02/28/23 07:06 02/28/23 05:53 Nasal Cannula 7 02/28/23 04:33 Nasal Cannula 02/28/23 03:00 Nasal Cannula 02/28/23 02:56 Nasal Cannula 02/28/23 02:23 02/28/23 00:43 Nasal Cannula 02/28/23 00:41 02/28/23 00:10 02/28/23 00:04 6 02/27/23 23:22 6 02/27/23 22:55 Nasal Cannula 5 02/27/23 22:40 5 02/27/23 22:25 5 02/27/23 22:24 Nasal Cannula 5 02/27/23 22:24 02/27/23 22:03 5 02/27/23 22:03 02/27/23 22:02 5 02/27/23 22:00 02/27/23 22:00 5 Laboratory Results reviewed, see HPI Diagnostic Findings reviewed, see HPI PG Care Time/CCT Total # of Minutes Spent Total Time Spent: 120 Total Time Spent with Patient: Total time spent is greater than 50% in coordination of care (as documented) at patient's floor/unit and/or counseling patient: I spent 120 minutes overall addressing this very complex case: 25 min in medical data review/discussion with referring provider(s) and/or preparation for the visit 25 min in direct interaction with the patient/exam 45 min in Advance Care Planning/Goals of Care discussions as detailed above in note (must be >16min) 10 min in subsequent review and synthesis of assessment and plan 15 min communicating with other providers regarding the patient's case: nursing, primary team Prolonged Care Time Prolonged Care Time: Yes Advanced Care Planning 46516 Advanced Care Planning 30 Min [id number] Advanced Care Planning Additional 30 [place] [address] IN/OBS CONSULT LVL 5,80M Patient Type New Medical Decision Making High Complexity Diagnoses Dyspnea and respiratory abnormalities R06.00; R06.89 Anxiety F41.9 Generalized weakness R53.1 Advanced care planning/counseling discussion Z Encounter for hospice care discussion Z Palliative care by specialist Z51.5 ILD (interstitial lung disease) J84.9 CHF (congestive heart failure) I50.9 Acute on chronic hypoxic respiratory failure J96.21 Additional Codes Prolonged Care Time - Prolonged Care Time: Yes ([id number]) Advanced Care Planning - 16564 Advanced Care Planning 30 Min: 03852 Advanced Care Planning 30 Min ([id number]) Advanced Care Planning - 47204 Advanced Care Planning Additional 30 Min: 80472 Advanced Care Planning Additional 30 Min ([id number])
[2023-02-28] MEDS ORDERED: CIPROFLOXACIN / D5W 400 MG/200 ML BAG IV SCH (10:00)
[2023-02-28 10:21] LABS: Basophils # (auto) 0.06 K/uL (0.00-0.20); Basophils % (auto) 0.8 %; Eosinophils % (auto) 5.2 %; Hematocrit (blood only) 28.7 % (42.0-52.0); Hemoglobin 8.4 g/dl (14.0-18.0); Immature Granulocytes # (auto) 0.03 K/uL (0.01-0.20); Immature Granulocytes % (auto) 0.4 %; Lymphocytes % (auto) 9.2 %; Mean Corpuscular Hemoglobin 28.8 pg (25.0-34.0); Mean Corpuscular Hgb Conc 29.3 g/dL (32.0-36.0); Mean Corpuscular Volume 98.3 fL (80.0-100.0); Mean Platelet Volume 10.3 fL (9.4-12.4); Monocytes # (auto) 0.61 K/uL (0.11-0.59); Neutrophils # (auto) 5.84 K/uL (1.40-6.50); Neutrophils % (auto) 76.4 %; Platelet Count 211 K/uL (130-400); RDW Coefficient of Variation 16.3 % (11.5-14.5); RDW Standard Deviation 59.7 fL (36.4-46.3); Red Blood Count 2.92 M/uL (4.70-6.10); White Blood Count 7.64 K/ul (4.8-10.8)
[2023-02-28] MEDS: cefTRIAXone SODIUM 2,000 MG in DEXTROSE 5 % MINI-B 50 ML IV SCH (10:54)
[2023-02-28] MEDS: OCTREOTIDE ACETATE 500 MCG in 0.9 % SODIUM CHLORIDE 100 ML IV SCH ×2 (10:55→19:37)
--- NOTE | 2023-02-28 11:06 | Electrocardiogram Report ---
Test Reason : Blood Pressure : / mmHG Vent. Rate : 104 BPM Atrial Rate : 104 BPM P-R Int : 156 ms QRS Dur : 088 ms QT Int : 322 ms P-R-T Axes : 022 041 006 degrees QTc Int : 423 ms Sinus tachycardia Otherwise normal ECG When compared with ECG of 24-JAN-2023 15:02, No significant change was found Confirmed by Topher Vazquez ([id number]) on 02/28/2023 11:05:56 AM Referred By: REFERRED SELF Confirmed By:Peter Vazquez
[2023-02-28] MEDS ORDERED: diphenhydrAMINE 50 MG/ML VIAL IV ONE (11:30)
[2023-02-28] MEDS ORDERED: HYDROmorphone INJ 0.5 MG/0.5 ML SYR IV PRN (14:15)
[2023-02-28] MEDS ORDERED: LORazepam 0.5 MG in SYRINGE 0.25 ML IV PRN (14:17)
[2023-02-28 16:04] LABS: Basophils # (auto) 0.03 K/uL (0.00-0.20); Basophils % (auto) 0.4 %; Eosinophils # (auto) 0.02 K/uL (0.00-0.50); Eosinophils % (auto) 0.3 %; Hemoglobin 8.2 g/dl (14.0-18.0); Immature Granulocytes # (auto) 0.05 K/uL (0.01-0.20); Immature Granulocytes % (auto) 0.7 %; Lymphocytes # (auto) 0.43 K/uL (1.20-3.40); Mean Corpuscular Hgb Conc 29.3 g/dL (32.0-36.0); Mean Corpuscular Volume 98.9 fL (80.0-100.0); Mean Platelet Volume 10.4 fL (9.4-12.4); Monocytes # (auto) 0.35 K/uL (0.11-0.59); Monocytes % (auto) 4.9 %; Neutrophils # (auto) 6.29 K/uL (1.40-6.50); Neutrophils % (auto) 87.7 %; Platelet Count 205 K/uL (130-400); RDW Coefficient of Variation 16.1 % (11.5-14.5); Red Blood Count 2.83 M/uL (4.70-6.10); White Blood Count 7.17 K/ul (4.8-10.8)
--- NOTE | 2023-02-28 17:53 | Hospitalist Progress Note ---
Date of Service February 28, 2023 Assessment & Plan (1) Acute GI bleeding: Plan: 77yo male with history of chronic hypoxic respiratory failure secondary to ILD on 5L of O2 at baseline presenting with acute on chronic respiratory failure as well as 2 weeks of melanotic stools. Patient likely with UGIB as source of melena. He did just complete a course of oral steroids, occasionally takes NSAIDs and is on a daily ASA. Hgb of 7.3 from baseline of 11.6 last checked on 01/26/23. +FOBT, rise to 8 gms after 1 u prbc -Continue Protonix drip -Transfusion 1u PRBCs ordered - repeat H/H -GI consultation appreciated - will have anesthesia oversight regarding possible EGD Acute blood loss anemia (2) Acute on chronic hypoxic respiratory failure: Plan: Patient with ILD - likely UIP, however this has not been formally confirmed. He does follow with Pulmonary. CXR appears near baseline. No obvious PNA or edema. -Duonebs -Albuterol PRN -Patient on Prednisone 15mg po daily at baseline - will administer Solumedrol equivalent of 12mg IV daily despite possible contribution to ugi bleed Respiratory biofire negative -Palliative Care consultation - briefly discussed with patient and and they are in agreement with consultation -Hold in Jacki Rosado for now -Lasix 20mg IV daily (3) Hyperlipidemia: Plan: Chronic. Stable -Holding Rosuvastatin Plan incidentally noted isolated elevated bili, ? gilberts, doubt hemolysis DNR DVT prevention is scd Admission and Anticipated Discharge Date Admission Date: February 27, 2023 Results & Data Results & Data Vital Signs (Past 12 Hours) Vital Signs Temp Pulse Pulse Resp BP Pulse Ox Pulse Ox 02/28/23 15:53 103 H 02/28/23 07:19 94 02/28/23 07:06 103 H 02/28/23 05:53 98.8 F 102 H 27 H 145/72 H 94 O2 Del Method O2 Del Method O2 Flow Rate O2 Flow Rate 02/28/23 15:53 02/28/23 07:19 Nasal Cannula 6 02/28/23 07:06 02/28/23 05:53 Nasal Cannula 7 PG Care Time/CCT Total # of Minutes Spent Total Time Spent with Patient: Total time spent is greater than 50% in coordination of care (as documented) at patient's floor/unit and/or counseling patient: Coding Level of Care Code None Diagnoses Acute GI bleeding K92.2 Acute on chronic hypoxic respiratory failure J96.21 Hyperlipidemia E78.5
[2023-02-28 21:57] LABS: A calco-baum cmplx NotReported Not Detected (NotDetected); Bact fragilis Not Reported Not Detected (NotDetected); Blood Culture Id Panel See PCR Comment (NotDetected); C auris Not Reported Not Detected (NotDetected); Calbicans Not Reported Not Detected (NotDetected); Candida glabrata Not Reported Not Detected (NotDetected); Candida krusei Not Reported Not Detected (NotDetected); Cneoformans/gatti Not Reported Not Detected (NotDetected); Cparapsilosis Not Reported Not Detected (NotDetected); E cloacae compx Not Reported Not Detected (NotDetected); Efaecalis Not Reported Not Detected (NotDetected); Efaecium Not Reported Not Detected (NotDetected); Enterobacterales Not Reported Not Detected (NotDetected); Escherichia coli Not Reported Not Detected (NotDetected); H influenzae Not Reported Not Detected (NotDetected); K aerogenes Not Reported Not Detected (NotDetected); Koxytoca Not Reported Not Detected (NotDetected); Kpneumoniae grp Not Reported Not Detected (NotDetected); Lmonocyt Not Reported Not Detected (NotDetected); N meningitidis Not Reported Not Detected (NotDetected); P aeruginosa Not Reported Not Detected (NotDetected); Proteus spp Not Reported Not Detected (NotDetected); Salmonella spp Not Reported Not Detected (NotDetected); Smarcescens Not Reported Not Detected (NotDetected); Staph lugdunensis Not Reported Not Detected (NotDetected); Staph spp. Not Reported DETECTED (NotDetected); Staphaureus Not Reported Not Detected (NotDetected); Staphepi Not Reported Not Detected (NotDetected); Stenmaltophilia Not Reported Not Detected (NotDetected); Strep agal(GrpB) Not Reported Not Detected (NotDetected); Strep pneum Not Reported Not Detected (NotDetected); Strep pyog (GrpA) Not Reported Not Detected (NotDetected); Strep spp Not Reported Not Detected (NotDetected)
[2023-02-28 22:07] LABS: Staphylococcus spp. DETECTED (NotDetected)
[2023-02-28 22:51] LABS: Basophils # (auto) 0.04 K/uL (0.00-0.20); Basophils % (auto) 0.4 %; Eosinophils % (auto) 2.2 %; Hematocrit (blood only) 28.7 % (42.0-52.0); Hemoglobin 8.4 g/dl (14.0-18.0); Immature Granulocytes # (auto) 0.04 K/uL (0.01-0.20); Immature Granulocytes % (auto) 0.4 %; Lymphocytes # (auto) 0.99 K/uL (1.20-3.40); Lymphocytes % (auto) 11.1 %; Mean Corpuscular Hemoglobin 29.2 pg (25.0-34.0); Mean Corpuscular Hgb Conc 29.3 g/dL (32.0-36.0); Mean Corpuscular Volume 99.7 fL (80.0-100.0); Mean Platelet Volume 10.2 fL (9.4-12.4); Monocytes # (auto) 0.94 K/uL (0.11-0.59); Monocytes % (auto) 10.5 %; Neutrophils # (auto) 6.71 K/uL (1.40-6.50); Neutrophils % (auto) 75.4 %; Platelet Count 228 K/uL (130-400); RDW Coefficient of Variation 15.9 % (11.5-14.5); RDW Standard Deviation 58.1 fL (36.4-46.3); Red Blood Count 2.88 M/uL (4.70-6.10); White Blood Count 8.92 K/ul (4.8-10.8)
[2023-03-01] MEDS: PANTOprazole 40 MG in DEXTROSE 5% MINI-B 100 ML IV SCH ×4 (02:57→21:11)
[2023-03-01 05:37] LABS: Basophils # (auto) 0.04 K/uL (0.00-0.20); Basophils % (auto) 0.5 %; Eosinophils # (auto) 0.46 K/uL (0.00-0.50); Eosinophils % (auto) 5.3 %; Hematocrit (blood only) 28.6 % (42.0-52.0); Hemoglobin 8.3 g/dl (14.0-18.0); Immature Granulocytes # (auto) 0.04 K/uL (0.01-0.20); Immature Granulocytes % (auto) 0.5 %; Lymphocytes # (auto) 1.27 K/uL (1.20-3.40); Lymphocytes % (auto) 14.8 %; Mean Corpuscular Hemoglobin 28.9 pg (25.0-34.0); Mean Corpuscular Volume 99.7 fL (80.0-100.0); Mean Platelet Volume 10.4 fL (9.4-12.4); Monocytes # (auto) 0.93 K/uL (0.11-0.59); Monocytes % (auto) 10.8 %; Neutrophils # (auto) 5.86 K/uL (1.40-6.50); Neutrophils % (auto) 68.1 %; Platelet Count 212 K/uL (130-400); RDW Coefficient of Variation 15.7 % (11.5-14.5); RDW Standard Deviation 56.8 fL (36.4-46.3); Red Blood Count 2.87 M/uL (4.70-6.10)
[2023-03-01 05:42] LABS: Albumin Globulin Ratio 0.8 (0.9-2); Albumin Level 2.8 gm/dl (3.4-5.0); BUN Creatinine Ratio 11.6 (10-20); Bilirubin,Total 0.6 mg/dl (0.2-1.0); Calcium 8.1 mg/dl (8.6-10.3); Creatinine Clr Calc Pharmacy 105.6 ml/min; Est GFR (African American) 106.9 ml/min; Est GFR (Non-African American) 92.2 ml/min; Globulin 3.3 gm/dl (2.5-4.0); INR 1.1 (0.9-1.1); Potassium 4.3 mmol/L (3.5-5.1); Prothrombin Time 12.2 Seconds (9.0-12.0); Total Protein 6.1 gm/dl (6.0-8.3)
[2023-03-01] MEDS: OCTREOTIDE ACETATE 500 MCG in 0.9 % SODIUM CHLORIDE 100 ML IV SCH ×2 (05:43→16:30)
--- NOTE | 2023-03-01 08:07 | Hospitalist Progress Note ---
Date of Service March 01, 2023 Assessment & Plan (1) Acute GI bleeding: Plan: 77yo male with history of chronic hypoxic respiratory failure secondary to ILD on 5L of O2 at baseline presenting with acute on chronic respiratory failure as well as 2 weeks of melanotic stools. Patient likely with UGIB as source of melena. He did just complete a course of oral steroids, occasionally takes NSAIDs and is on a daily ASA. Hgb of 7.3 from baseline of 11.6 last checked on 01/26/23. +FOBT, rise to 8 gms after 1 u prbc 03/01 remains 8.3 gms -transition to po protonix, one week of carafate since needs to be on daily steroids -Transfusion 1u PRBCs ordered - repeat H/H has been stable -GI consultation appreciated -medical managment constipaiton starting miralax Spent approximately 35 minutes discussing this case with Dr. Mendez and also the patient in the endoscopy holding area this was in addition to typical visit (2) Acute on chronic hypoxic respiratory failure: Plan: Patient with ILD - likely UIP, however this has not been formally confirmed. He does follow with Pulmonary. CXR appears near baseline. No obvious PNA or edema. -Duonebs -Albuterol PRN -Patient on Prednisone po daily at baseline will return to 10 mg to avoid addisons crisis, however does have risk of GIB Respiratory biofire negative -Palliative Care consultation -pt wishes to transition to hospice after discharg e looking for [place] hospice and likely cannot go home as is unable to care for him, details of location still uncertain -resume Singulair, Guaifenesin -Lasix 20mg IV daily (3) Hyperlipidemia: Plan: Chronic. Stable -Holding Rosuvastatin Plan incidentally noted isolated elevated bili, ? gilberts, doubt hemolysis DNR DVT prevention is scd Admission and Anticipated Discharge Date Admission Date: February 27, 2023 Subjective Patient was seen in the holding area for EGD. He was apprised that we are pursuing EGD given the patient's willingness to transition the palliative care post this discharge. His hemoglobin has been stable and has had no other issues except for some constipation. I discussed this case in detail with Dr. Mendez and he is going to speak to the patient if the patient continues to agree that the most conservative approach would be best warranted given his significant lung disease to avoid problems with anesthesia we may proceed with medical management of possible upper GI bleed. Patient is in no immediate distress at this time Physical Exam Physical Exam: Awake alert appropriate conversant about his issues Card exam is regular Lungs have poor air movement with fine crackles Abdomen NABS soft and nontender Results & Data Results & Data Vital Signs (Past 12 Hours) Vital Signs Pulse Pulse Resp BP Pulse Ox O2 Del Method O2 Flow Rate 03/01/23 04:00 88 22 110/79 95 Nasal Cannula 6 03/01/23 02:09 Nasal Cannula 6 03/01/23 02:00 82 18 124/69 95 Nasal Cannula 6 03/01/23 00:40 84 03/01/23 00:00 93 H 23 132/69 96 Nasal Cannula 6 02/28/23 22:14 Nasal Cannula 6 Laboratory Results Reviewed CBC reviewed chemistry PG Care Time/CCT Total # of Minutes Spent Total Time Spent with Patient: Total time spent is greater than 50% in coordination of care (as documented) at patient's floor/unit and/or counseling patient: Coding Level of Care Code 96558 SUB INP/OBS CARE 3/50MIN Diagnoses Acute GI bleeding K92.2 Acute on chronic hypoxic respiratory failure J96.21 Hyperlipidemia E78.5
[2023-03-01] MEDS: ALBUT/IPRATROP 3MG/0.5MG NEB 3 ML VIAL INH PRN ×2 (08:30→19:02)
[2023-03-01] MEDS: METHYLPREDNISOLONE IV SCH (08:54)
[2023-03-01] MEDS: FUROSEMIDE INJ 20 MG/2 ML VIAL IV SCH (08:54)
[2023-03-01] MEDS: [UNRECOGNIZED DRUG - REMARK] SCH ×3 (09:03→23:06)
--- NOTE | 2023-03-01 09:34 | History & Physical Bridge Note ---
Date of Service March 01, 2023 History & Physical Bridge Note I have examined the patient, reviewed the History & Physical and in the interval since the performance of the History & Physical I have noted the following changes of clinical significance: no changes noted. 77 year old male with history of ILD on chronic O2 and Prednisone presented with symptoms of increased SOB, noted have worsening anemia with reports of melena x 2 weeks. He has history of suspected fatty liver cirrhosis (MELD 11) with normal platelets and INR, intermittent NSAIDs use and on Prednisone 15mg + ASA 81mg daily. No known history of esophageal varices. he does have a history of gastritis on last EGD in 2016. he has been NPO. no further melena since admission. 03/01/23 hgb 8.3. He does still wish to proceed with EGD. no new concerns. he feels breathing is at baseline. no chest pain. Supervising Physician Co-Signing Physician Notes Agree with SAMANTHA Thao as above Abd: Soft, NT, ND, +BS Discussed case in detail with Dr. Oliva of Hospitalist service and Dr. Oliver of Anesthesia and with patient. As he is hemodynamically stable and has no overt bleeding at this time, joint decision was to hold off on further invasive testing as patient will be entering hospice upon discharge from the hospital. Risk of procedure outweighs the benefit. Continue current therapy and supportive care.
[2023-03-01] MEDS: cefTRIAXone SODIUM 2,000 MG in DEXTROSE 5 % MINI-B 50 ML IV SCH (10:30)
[2023-03-01] MEDS: diphenhydrAMINE 50 MG/ML VIAL IV PRN (10:44)
[2023-03-01 11:17] LABS: Basophils # (auto) 0.06 K/uL (0.00-0.20); Basophils % (auto) 0.6 %; Eosinophils # (auto) 0.54 K/uL (0.00-0.50); Eosinophils % (auto) 5.7 %; Hematocrit (blood only) 30.8 % (42.0-52.0); Hemoglobin 9.2 g/dl (14.0-18.0); Immature Granulocytes # (auto) 0.05 K/uL (0.01-0.20); Immature Granulocytes % (auto) 0.5 %; Lymphocytes # (auto) 0.55 K/uL (1.20-3.40); Lymphocytes % (auto) 5.8 %; Mean Corpuscular Hemoglobin 29.3 pg (25.0-34.0); Mean Corpuscular Hgb Conc 29.9 g/dL (32.0-36.0); Mean Corpuscular Volume 98.1 fL (80.0-100.0); Mean Platelet Volume 10.7 fL (9.4-12.4); Monocytes # (auto) 0.84 K/uL (0.11-0.59); Monocytes % (auto) 8.9 %; Neutrophils # (auto) 7.43 K/uL (1.40-6.50); Neutrophils % (auto) 78.5 %; Platelet Count 227 K/uL (130-400); RDW Coefficient of Variation 15.6 % (11.5-14.5); RDW Standard Deviation 55.9 fL (36.4-46.3); Red Blood Count 3.14 M/uL (4.70-6.10); White Blood Count 9.47 K/ul (4.8-10.8)
[2023-03-01] MEDS ORDERED: POLYETHYLENE (MIRALAX) 17 GM PACK PO ONE (16:02)
[2023-03-01] MEDS: SUCRALFATE 1 GM TAB PO SCH ×2 (18:12→21:59)
[2023-03-01] MEDS ORDERED: [UNRECOGNIZED DRUG - REMARK] ONE (21:00)
[2023-03-01] MEDS: PANTOprazole 40 MG TAB PO SCH (21:59)
[2023-03-02 06:54] LABS: Albumin Globulin Ratio 0.8 (0.9-2); Albumin Level 2.8 gm/dl (3.4-5.0); BUN Creatinine Ratio 16.7 (10-20); Bilirubin,Total 0.6 mg/dl (0.2-1.0); Creatinine Clr Calc Pharmacy 93.2 ml/min; Est GFR (African American) 101.6 ml/min; Est GFR (Non-African American) 87.7 ml/min; Globulin 3.3 gm/dl (2.5-4.0); Potassium 4.2 mmol/L (3.5-5.1); Total Protein 6.1 gm/dl (6.0-8.3)
[2023-03-02 07:17] LABS: INR 1.1 (0.9-1.1); Prothrombin Time 12.3 Seconds (9.0-12.0)
[2023-03-02] MEDS: [UNRECOGNIZED DRUG - REMARK] SCH ×3 (07:31→23:38)
[2023-03-02] MEDS: SUCRALFATE 1 GM TAB PO SCH ×4 (07:35→21:22)
[2023-03-02] MEDS: POLYETHYLENE (MIRALAX) 17 GM PACK PO SCH (08:16)
[2023-03-02] MEDS: guaiFENesin 200 MG TAB PO PRN (08:16)
[2023-03-02] MEDS: PANTOprazole 40 MG TAB PO SCH ×2 (08:16→21:22)
[2023-03-02] MEDS: predniSONE 10 MG TABLET PO SCH (08:16)
[2023-03-02] MEDS: FUROSEMIDE 40 MG TAB PO SCH (08:21)
[2023-03-02] MEDS: MONTELUKAST SODIUM 10 MG TABLET PO SCH (08:21)
[2023-03-02] MEDS: cefTRIAXone SODIUM 2,000 MG in DEXTROSE 5 % MINI-B 50 ML IV SCH (10:09)
[2023-03-02] MEDS ORDERED: bisacodyL 10 MG SUPP PR PRN (13:15)
--- NOTE | 2023-03-02 13:24 | Hospitalist Progress Note ---
Date of Service March 02, 2023 Assessment & Plan (1) Acute GI bleeding: Plan: 77yo male with history of chronic hypoxic respiratory failure secondary to ILD on 5L of O2 at baseline presenting with acute on chronic respiratory failure as well as 2 weeks of melanotic stools. Patient likely with UGIB as source of melena. He did just complete a course of oral steroids, occasionally takes NSAIDs and is on a daily ASA. - Hgb of 7.3 on admit from baseline of 11.6 last checked on 01/26/23. 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 He does follow with Pulmonary. CXR appears near baseline. No obvious PNA or edema. - Duonebs and Albuterol PRN - Continue supplemental oxygen - Patient on Prednisone po daily at baseline will return to 10 mg to avoid addisons crisis, however does have risk of GIB - Respiratory biofire negative - Palliative Care consultation appreciated - pt wishes to transition to hospice after discharge looking for [place] hosp[facility] and likely cannot go home as is unable to care for him, details of location still uncertain - CM on board - resume Singulair Guaifenesin - Transitioned back to oral Lasix 40mg daily (3) Hyperlipidemia: Plan: Chronic. Stable - Holding Rosuvastatin but uncertain as to why - Given plan to return home with hospice services, can ultimately discontinue this medication (4) Carcinoma of bladder: Plan: - History of such with creation of studor pouch 15 years ago - Follows with urology, last saw Dr. Guzman - Currently has a kelly in place draining well, but he did not have one prior to admission - No documentation to indicate if he had urinary retention as reason for insertion - Discussed with Dr. Clancy, urology commercial front load driver, he agreed with d/c and trial of void, bladder scan q shift, if develops residual >300cc, replace kelly Plan incidentally noted isolated elevated bili, ? gilberts, doubt hemolysis DNR DVT prevention is scd D/C kelly Dispo TBD - CM on board. Plan with either home or SNF with hospice D/W Dr. Saucedo Admission and Anticipated Discharge Date Admission Date: February 27, 2023 Violet Sheridan was seen this morning on daily rounds. He indicates no new complaints. His breathing is relatively stable at present but has been overtime progressively worsening. He was to undergo EGD on 03/01 but ultimately decision was made not to pursue invasive diagnostic testing as his hemodynamics were stable and the risks outweighed the benefits given his plan to transition to hospice upon discharge. Currently he is awaiting arrangements to be discharged home. He is requesting a hospital bed and bedside commode. Unsure exactly when he will be able to transition. He also has a h/o bladder ca with sofi bladder formation. He currently has a kelly placed but uncertain why it was placed, ?retention. He is asking about removal as he did not have one at home prior to admission. He does follow w/ urology, last saw Dr. Guzman in May 2022. He has not had a BM in 3 days. Denies CP, n/v/d, f/c, headache. Review of Systems 2 Review of Systems: All systems reviewed and are unremarkable except as noted in HPI and below. Denies fever, chills, fatigue, headache, nasal congestion, sore throat, cough, chest pain, palpitations, orthopnea, PND, abdominal pain, n/v/d, constipation, dysuria, hematuria, frequency, back pain, joint pain or swelling, easy bruising or bleeding, skin lesions or rashes. Physical Exam 2 Physical Exam: GENERAL: 77 yo well-developed, well-nourished elderly M. Mild respiratory distress. LUNGS: Conversational dyspnea with scattered wheezing throughout. CARDIOVASCULAR: Regular rate and rhythm +murmur ABDOMEN: Soft, non-tender and non-distended. BS normoactive x 4 quad. EXTREMITIES: No edema. Non-tender. Peripheral pulses +2/4. Results & Data Results & Data Vital Signs (Past 12 Hours) Vital Signs Temp Pulse Resp BP Pulse Ox O2 Del Method O2 Flow Rate 03/02/23 07:40 Nasal Cannula 6 03/02/23 07:19 36.8 C 91 H 20 128/68 94 Nasal Cannula 6 03/02/23 02:44 Nasal Cannula 6 03/02/23 02:38 36.9 C 96 H 18 137/75 93 Nasal Cannula 6 Laboratory Results 03/01/23 10:33 03/02/23 05:48 PG Care Time/CCT Total # of Minutes Spent Total Time Spent with Patient: Total time spent is greater than 50% in coordination of care (as documented) at patient's floor/unit and/or counseling patient: Coding Level of Care Code 97040 SUB INP/OBS CARE 2/35MIN Diagnoses Acute GI bleeding K92.2 Acute on chronic hypoxic respiratory failure J96.21 Hyperlipidemia E78.5 Carcinoma of bladder C67.9
[2023-03-02] MEDS: diphenhydrAMINE 50 MG/ML VIAL IV PRN (21:14)
[2023-03-03] MEDS: SUCRALFATE 1 GM TAB PO SCH ×2 (08:01→11:55)
[2023-03-03] MEDS: [UNRECOGNIZED DRUG - REMARK] SCH (08:10)
[2023-03-03] MEDS: FUROSEMIDE 40 MG TAB PO SCH (08:50)
[2023-03-03] MEDS: guaiFENesin 200 MG TAB PO PRN (08:50)
[2023-03-03] MEDS: predniSONE 10 MG TABLET PO SCH (08:50)
[2023-03-03] MEDS: PANTOprazole 40 MG TAB PO SCH (08:50)
[2023-03-03] MEDS: MONTELUKAST SODIUM 10 MG TABLET PO SCH (08:50)
[2023-03-03] MEDS: POLYETHYLENE (MIRALAX) 17 GM PACK PO SCH (08:51)
[2023-03-03] MEDS: diphenhydrAMINE 50 MG/ML VIAL IV PRN (08:56)
--- NOTE | 2023-03-03 11:36 | Discharge Summary ---
Discharge Summary Date of Service March 03, 2023 Notes For Next Care Provider [facility] Medication Changes From Visit Added Protonix 40mg po bid Added carafate 1 gram po achs x 10 days Admission HPI Per Admitting Provider Alexx Dickinson is a 77yo male with diffuse interstitial lung disease. [facility] He had a biopsy that showed UIP but this was not definitively diagnosed. He has been declined for lung transplant and is not a candidate for chronic immunosuppression given the unclear diagnosis. Patient presents today with worsening shortness of breath as well as weakness. He reports that his saturations drop into the 70's at home with the slightest movement or walking short distances like 4-5 feet. He reports stable bilateral LE edema. Additionally patient endorses 2 weeks of black, tarry bowel movements. They started out intermittent but have become fairly frequent over the last week. He denies abdominal pain or bloating, no diarrhea, no nausea or vomiting. Also denies fever, chills, chest pain, urinary complaints. He has a chronic cough which may be slightly worse than his normal. In the ER he is afebrile, HD stable. Tachypneic. Saturations adequate on his baseline 5L of supplemental O2. Hemoccult testing POSITIVE for blood ER Course: Protonix bolus and drip Pepcid 20mg IV Principal Dx & Hospital Course #1 = Principal Diagnosis (1) Acute GI bleedinyo male with history of chronic hypoxic respiratory failure secondary to ILD on 5L of O2 at baseline presenting with acute on chronic respiratory failure as well as 2 weeks of melanotic stools. Patient likely with UGIB as source of melena. He did just complete a course of oral steroids, occasionally takes NSAIDs and is on a daily ASA. With acute blood loss anemia - Hgb of 7.3 on admit from baseline of 11.6 last checked on 01/26/23. +FOBT, s/p 1unit PRBCs - 03/01 hgb remains 9.2g and not rechecked after that as patient desired to go home with hospice - Transitioned from IV to po protonix bid, started carafate qid x 10 days after discharge -advised to STOP ASA and NSAID use - GI consultation appreciated -medical management -initially on Ceftriaxone as ordered by GI ELECTRONICS ENGINEERING TECHNOLOGIST for SBP prophylaxis prior to EGD given his h/o cirrhosis-stopped -continue ferrous sulfate daily as before (2) Acute on chronic hypoxic respiratory failure: Patient with ILD - likely UIP, however this has not been formally confirmed. He does follow with Pulmonary. CXR with fibrosis changes and has LLL PNA from previous admission for Strep pneumo PNA - Duonebs and Albuterol PRN - Continue supplemental oxygen at 5LNC baseline - Patient on Prednisone po daily at baseline will return to 15 mg home dose to avoid saul's crisis - Respiratory biofire negative - Palliative Care consultation appreciated - pt wishes to transition to hospice after discharge through [facility] - [facility] and [facility] very anxious to get home-wants to be discharged today and call PCP on Saturday to arrange home hospice - continue Singulair, Guaifenesin - Transitioned back to oral Lasix 40mg daily (3) Hyperlipidemia: Chronic. Stable - continue Rosuvastatin, but can ultimately discontinue this medication on hospice (4) Carcinoma of bladder: - History of such with creation of studor pouch 15 years ago - Follows with urology, last saw Dr. Guzman - kelly placed here for unclear reasons- No documentation to indicate if he had urinary retention as reason for insertion - Discussed with Dr. Clancy, urology implementation project coordinator, he agreed with d/c and trial of void-voiding well since then Plan incidentally noted isolated elevated bili, ? gilberts, doubt hemolysis DNR DVT prevention is scd Dispo-dc to home with plans for home hospice in near future. Pt has family support and no needs urgently Updated Medication List Medication Instructions Recorded Confirmed Type ascorbic acid (vitamin C) 500 mg 500 mg PO QAM 07/29/18 02/27/23 History tablet aspirin 81 mg tablet,delayed 81 mg PO QAM 07/29/18 02/27/23 History release cholecalciferol (vitamin D3) 25 2,000 unit PO QAM 07/29/18 02/27/23 History mcg (1,000 unit) tablet (Vitamin D3) ferrous sulfate 325 mg (65 mg 325 mg PO QAM 07/29/18 02/27/23 History iron) tablet Oxygen Home #1 ea 11/20/18 01/08/23 History montelukast 10 mg tablet 10 mg PO DAILY 03/11/20 02/27/23 History albuterol sulfate 90 mcg/actuation 2 puff inhalation QID PRN 02/27/23 02/27/23 History aerosol inhaler Shortness Of Breath furosemide 40 mg tablet (Lasix) 40 mg PO DAILY 02/27/23 02/27/23 History guaifenesin 200 mg tablet 200 mg PO BID PRN Cough 02/27/23 02/27/23 History ipratropium 0.5 mg-albuterol 3 mg 3 ml inhalation QID PRN Shortness 02/27/23 02/27/23 History (2.5 mg base)/3 mL nebulization Of Breath soln ipratropium bromide 21 mcg (0.03 1 spray intranasal BID 02/27/23 02/27/23 History %) nasal spray metformin 500 mg tablet 500 mg PO BIDM 02/27/23 02/27/23 History prednisone 20 mg tablet 30 mg PO DAILY 02/27/23 02/27/23 History prednisone 5 mg tablet 15 mg PO DAILY 02/27/23 02/27/23 History rosuvastatin 40 mg tablet 40 mg PO .Q3DAYS 02/27/23 02/27/23 History pantoprazole 40 mg tablet,delayed 40 mg PO BID #60 tabs 03/03/23 Rx release sucralfate 1 gram tablet 1 g PO ACHS 10 days #40 tabs 03/03/23 Rx Hospital Stay Data Consultations 02/27/23 20:36 ED Decision to Admit Stat 02/27/23 21:19 Consult Gastroenterology Routine 02/27/23 21:38 Consult Palliative Care Routine Procedures Performed Operation Date: 03/01/23 16:45 <No data on this case meets the specified criteria> Pending Results Patient Have Any Pending Studies at Discharge: Yes (Final blood cultures) Discharge Instructions Given to Patient (Per Discharging Provider) You were admitted with bleeding likely from an ulcer in our stomach. You were transfused blood and had improvement in your symptoms. You were treated with antacids which should be continued after discharge. You should STOP taking your aspirin daily and do not take any other NSAIDs such as Advil, Aleve, Motrin, ibuprofen, naproxen, etc. as these can cause ulcers in the stomach. You have expressed interest in enrolling in hospice at home. Due to the holiday, this was unable to be arranged prior to discharge, so you will need to contact the [facility] on Saturday to have your PCP set this up for you. Total Time Total Time Spent Total Time Spent (In Minutes): 35 min Coding Level of Care Code 12672 INP/OBS DISCH >30 MIN Diagnoses Acute GI bleeding K92.2 Acute on chronic hypoxic respiratory failure J96.21 Hyperlipidemia E78.5 Carcinoma of bladder C67.9
== END 2023-03-03 13:37 | disposition home or self-care (01) | DRG 377 ==
LOC: ED 18:00 → EDINP 21:15 → SUATTDRO 21:15 → 3N 03-01 23:33